=== PATIENT | male | born 1940 | race Caucasian/White ===

== ENCOUNTER 2017-12-27 19:40 | Observation (INO) | payer MEDICARE ==
[2017-12-27] MEDS ORDERED: Nitroglycerin TAB 0.4 MG* 0.4 MG TAB SL ONE (20:28)
[2017-12-27] MEDS ORDERED: Aspirin TAB* 325 MG PO ONE (20:28)
--- NOTE | 2017-12-27 20:32 | RAD ---
INDICATION: Chest pain COMPARISON: December 16, 2015 TECHNIQUE: An AP portable view obtained at 2021 hours is submitted. FINDINGS: Bones/Soft Tissues: There are no acute bony findings. Cardiomediastinal: The cardiomediastinal silhouette is normal. Lungs: There are no infiltrates. There is mild hyperinflation. Pleura: There are no pleural effusions. Other: None IMPRESSION: HYPERINFLATION. NO ACTIVE DISEASE.
[2017-12-27 21:24] LABS: ABS Basophils 0.1 10^3/ul (0-0.2); ABS Eosinophils 0.1 10^3/ul (0-0.6); ABS Lymphocytes 1.4 10^3/ul (1.0-4.8); ABS Monocytes 0.6 10^3/ul (0-0.8); ABS Neutrophils 3.3 10^3/ul (1.5-7.7); ABS Nucleated RBC 0 10^3/ul; Eosinophil % 2.4 % (0-6); Hematocrit 40 % (42-52); Lymphocyte % 25.5 % (25-47); Mean Corpuscular HGB Conc 35 g/dl (31-36); Mean Corpuscular Hemoglobin 31 pg (27-31); Mean Corpuscular Volume 87 fL (80-94); Mean Platelet Volume 8 um3 (7.4-10.4); Nucleated Red Blood Cells % 0; Platelet Count 155 10^3/ul (150-450); Red Blood Count 4.59 10^6/ul (4.0-5.4); Red Cell Distribution Width 13 % (10.5-15); White Blood Count 5.4 10^3/ul (3.5-10.8)
[2017-12-27 21:36] LABS: EGFR Non-African American 77.6 (>60)
--- NOTE | 2017-12-28 00:23 | HP ---
CC: Dr. Wallis * HISTORY AND PHYSICAL: DATE OF ADMISSION: 12/27/17 PRIMARY CARE PROVIDER: Dr. Wallis. ROOF TILER: Dr. Gaspar. CHIEF COMPLAINT: Chest pain. HISTORY OF PRESENT ILLNESS: Mr. Ceballos is a 77-year-old male, who was driving back from [employer] today when he developed the onset of chest discomfort across his chest. He states that it was at approximately noon. The patient describes the discomfort as being a pressure feeling. He states the more he thought about the discomfort, the worse it got. He had no associated nausea or diaphoresis, but he did think he may have been slightly short of breath. The patient states that the discomfort lasted for several hours. It resolved when he got to the emergency room. The patient does state that he rides a stationary bike for 30 minutes per day except for Sundays. He rode his bike this morning. He does state that he gets his heart rate going pretty quick with riding his bike. He had no associated chest pain this morning with riding his stationary bike. PAST MEDICAL HISTORY: 1. Coronary artery disease. 2. Hyperlipidemia. 3. BPH. 4. Questionable lung nodule. PAST SURGICAL HISTORY: 1. Appendectomy. 2. Tonsillectomy. MEDICATIONS: 1. Aspirin 81 mg p.o. daily. 2. Crestor 10 mg p.o. daily. 3. AREDS 1 tab p.o. daily. 4. Lisinopril 10 mg p.o. daily. 5. Atenolol 25 mg p.o. daily. ALLERGIES: No known drug allergies. FAMILY HISTORY: Mother of breast cancer. Father of an [place]. SOCIAL HISTORY: The patient is a former smoker. He quit in the . He drinks alcohol on occasion. 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 He is x2. He has 2 children. He indicates that his son, Nikos, would be his surrogate decision maker. REVIEW OF SYSTEMS: Complete 11-system of review of systems was obtained. Pertinent positives and negatives are as per HPI, and otherwise negative. PHYSICAL EXAMINATION GENERAL: The patient is a well-developed, elderly male, sitting up in the stretcher in no acute distress. VITAL SIGNS: Blood pressure 129/63, pulse 59, respirations 17, temp 98.3, O2 sat 97% on room air. HEENT: Pupils are equal and round. Extraocular muscles are intact. Oropharynx is clear. Oral mucosa is moist. The patient wears upper and lower dentures. There is no submandibular, cervical, or supraclavicular adenopathy. Thyroid is not enlarged. No thyroid nodules are noted. PULMONARY: Lungs are clear to auscultation bilaterally. CARDIAC: Normal S1, S2. Regular rate and rhythm. I do not appreciate any murmurs. There is no lower extremity edema. ABDOMEN: Bowel sounds are present. Abdomen is soft, nontender, nondistended. MUSCULOSKELETAL: There is no cyanosis or clubbing of the digits. There is full active range of motion of all 4 extremities. NEURO: Cranial nerves II through XII are grossly intact. Sensation is intact to light touch throughout. Strength is 5/5 and symmetric in both upper and lower extremities bilaterally. PSYCH: The patient is alert, he is oriented x3. Affect appears appropriate. SKIN: Warm and dry. There are no rashes. DIAGNOSTIC STUDIES/LAB DATA: WBC 5.4, hemoglobin 14.0, hematocrit 40, platelets 155. D-dimer 217. Sodium 139, potassium 3.6, chloride 108, CO2 26, BUN 23, creatinine 0.94, glucose 111, lactic acid 1.1, calcium 9.5. Bilirubin 0.9, AST 27, ALT 20, alk phos 47. Troponin 0.01. Albumin 4.0. EKG reveals normal sinus rhythm without any acute ST-T wave abnormalities. Chest x-ray revealed hyperinflation with no active disease. ASSESSMENT AND PLAN: Mr. Ceballos is a 77-year-old male with a known history of coronary artery disease, status post stenting in the past, who presents to the emergency room with complaints of chest pressure that lasted for several hours on the day of admission. 1. Chest pain. The patient will be admitted and ruled out for an acute myocardial infarction with serial troponins. Followup EKG will be obtained tomorrow morning. The patient will be ordered an exercise nuclear stress test. If the stress test is negative, he will be discharged home as positive Cardiology consultation should be obtained. 2. Hyperlipidemia. The patient will continue on Lipitor while in the hospital ; however, I will transition back to Crestor at home. He has had issues with elevated CPKs in the past. I will add a CPK to the labs drawn in the emergency room. 3. Coronary artery disease. The patient will be maintained on his usual dose of aspirin, atenolol, and lisinopril. 4. DVT prophylaxis. According to the Adult Thrombosis Prophylaxis Risk Factor Assessment Guide, the patient has a total risk factor score of 3, making him high risk. He will be placed on heparin 5000 units subcutaneous q.8 hours. 5. Code status is full. TIME SPENT: Fifty-five minutes was spent admitting this patient. [id number]/[facility] #: [id number] LAK[place]INDER
[2017-12-28] MEDS: Heparin VIAL(*) 5000 UNITS/ML VIAL (FIVE THOUSAND) SUBCUT SCH ×2 (05:57→14:30)
[2017-12-28] MEDS ORDERED: Lisinopril TAB* 10 MG PO SCH (09:00)
[2017-12-28] MEDS ORDERED: Atorvastatin* 20 MG TAB PO SCH (09:00)
[2017-12-28] MEDS ORDERED: Atenolol TAB* 25 MG PO SCH (09:00)
[2017-12-28] MEDS ORDERED: Multivitamins/Minerals TAB PO SCH (09:00)
[2017-12-28] MEDS ORDERED: Aspirin Low Dose CHEW TAB* 81 MG PO SCH (09:00)
--- NOTE | 2017-12-28 12:12 | RAD ---
Edited for charges. Indication: Evaluate for ischemia. Chest pain. Myocardial perfusion scan was performed utilizing 1 day protocol. 10.9 mCi of technetium 99 and tetrofosmin was injected for the rest portion of the study. Treadmill stress study was performed and 25.2 mCi of technetium 99 and tetrofosmin was injected for the stress portion of the study. Maximum heart rate achieved was 113% of the maximum predicted value. There is photopenia in the inferior wall which is slightly worse on the stress and the rest images however this is felt to represent diaphragmatic attenuation. The ejection fraction at stress is 57%. Evaluation of wall motion demonstrates no focal wall motion abnormality. IMPRESSION: Inferior wall photopenia slightly worse on the stress than on the rest of this is felt to represent diaphragmatic attenuation as attenuation correction could not be performed due to body habitus. Ejection fraction of 57%. ASSESSMENT: Low risk Based on imaging criteria from ACC/AHA 2002 Guideline Update for the Management of Patients With Chronic Stable Angina Table 23. Noninvasive Risk Stratification. MTDD
[2017-12-28 13:11] VITALS: BP 127/66
--- NOTE | 2017-12-28 14:43 | PN ---
Subjective Date of Service: 12/28/17 Interval History: Patient seen and examined at bedside. Denies fever, chills, shortness of breath , chest discomfort, N/V/D. Pt reported slight chest discomfort at the end of his stress test. Tele: Sinus rhythm, rate 60's. Family History: Unchanged from Admission Social History: Unchanged from Admission Past Medical History: Unchanged from Admission Objective Active Medications: Aspirin (Aspirin Low Dose Tab*) 81 mg PO DAILY [facility] Atenolol (Tenormin Tab*) 25 mg PO DAILY [facility] Atorvastatin Calcium (Lipitor*) 20 mg PO DAILY [facility] Heparin Sodium (Porcine) (Heparin Vial(*)) 5,000 units SUBCUT Q8HR [facility] Lisinopril (Prinivil Tab*) 10 mg PO DAILY [facility] Multivitamins/Minerals (Theragran/Minerals Tab*) 1 tab PO DAILY [facility] Vital Signs - 8 hr 12/28/17 12/28/17 08:06 12:06 Temperature 97.6 F 97.6 F Pulse Rate 64 66 Respiratory 16 16 Rate Blood Pressure 122/69 127/66 (mmHg) O2 Sat by Pulse 97 93 Oximetry Oxygen Devices in Use Now: None Appearance: NAD, laying in bed Ears/Nose/Mouth/Throat: Mucous Membranes Moist Respiratory: Symmetrical Chest Expansion and Respiratory Effort, Clear to Auscultation Cardiovascular: NL Sounds; No Murmurs; No JVD, RRR Abdominal: NL Sounds; No Tenderness; No Distention Extremities: No Edema Skin: No Rash or Ulcers Neurological: Alert and Oriented x 3, NL Muscle Strength and Tone Lines/Tubes/Other Access: Clean, Dry and Intact Peripheral IV - site benign Nutrition: Taking PO's Result Diagrams: 12/27/17 21:03 12/27/17 21:03 Assess/Plan/Problems-Billing Assessment: Mr. Ceballos is a 77 yo female with PMH significant for CAD, HLD, BPH, and a ? lung nodule who presented to the emergency room with complaints of chest discomfort. - Patient Problems (1) Chest pain Code(s): R07.9 - CHEST PAIN, UNSPECIFIED SNOMED Code(s): 11553181 Comment: - Troponin 0.01 x3 - Stress test - low risk (2) CAD (coronary artery disease) Code(s): I25.10 - ATHSCL HEART DISEASE OF [place] CORONARY ARTERY W/O ANG PCTRS SNOMED Code(s): 18024289 Comment: - Continue ASA, atenolol and statin (3) Dyslipidemia Code(s): E78.5 - HYPERLIPIDEMIA, UNSPECIFIED SNOMED Code(s): 161327014 Comment: - Continue statin (4) Hypertension Code(s): I10 - ESSENTIAL (PRIMARY) HYPERTENSION SNOMED Code(s): 33086254 Comment: - SBP 120-130's - Continue atenolol and lisinopril (5) DVT prophylaxis Code(s): UPA3718 - SNOMED Code(s): 649884074 (6) Full code status Code(s): Z78.9 - OTHER SPECIFIED HEALTH STATUS SNOMED Code(s): 073908860 Status and Disposition: OBV. Stable for discharge to home.
--- NOTE | 2017-12-29 17:50 | DS ---
CC: Dr. Gaspar; Dr. Zackary Wallis DISCHARGE SUMMARY: DATE OF ADMISSION: 12/27/17 DATE OF DISCHARGE: 12/28/17 ATTENDING PHYSICIAN: Dr. Oleg Phillip (dictated by Tino Hall NP). PRIMARY CARE PROVIDER: Dr. Zackary Wallis. PRIMARY DIAGNOSIS: Chest pain, suspect noncardiac in nature. SECONDARY DIAGNOSES: Coronary artery disease, hyperlipidemia, hypertension, benign prostatic hypertr ophy, possible lung nodule. STUDIES WHILE IN THE HOSPITAL: 1. Chest x-ray on 12/27/17. Radiologist's impression: Hyperinflation. No active disease. 2. Cardiac nuclear stress stress test on 12/28/17. Licensed Direct Entry Midwife's observation: Good exercise capaci ty. Gait issue limits ambulation. Chest discomfort reproduced at peak exercise and into recovery. Off a.m. medications, elevated blood pressure and appropriate response to exercise. Resting ECG show s normal sinus rhythm, normal ST segments and significant ST changes with testing. Licensed Direct Entry Midwife's co nclusion: Hypertensive throughout off medications and chest discomfort. No evidence of inducible is chemia by ECG criteria, await nuclear data for final ischemic interpretation. Radiologist's impressi on: Inferior wall photopenia, slightly worse on the stress and on the rest of this is felt to repres ent diaphragmatic attenuation as attenuation correction could not be performed due to body habitus. EF 57%. Assessment: Low risk. MEDICATIONS: Continued home medications: 1. Aspirin 81 mg oral daily. 2. Lisinopril 10 mg oral daily. 3. Atenolol 25 mg oral daily. 4. Rosuvastatin 10 mg oral daily. 5. Multivitamin 1 tablet oral daily. HISTORY OF PRESENT ILLNESS/HOSPITAL COURSE: Mr. Ceballos is a 77-year-old male with past medical histo ry significant for coronary artery disease, hyperlipidemia, hypertension, BPH, possible lung nodule, who was driving when he developed sudden onset of chest discomfort across his chest. The patient holly cribed the discomfort as a pressure feeling. He reported the one that he thought about the discomfor t that worse and got. He had no associated diaphoresis, nausea, or radiation of his pain. He felt a s though he may have been slightly short of breath. The discomfort continued for several hours and h e decided to present to the emergency room. The patient's chest pain resolved when he got to the [facility] room. On the emergency room, the patient had labs that were unremarkable. Initial troponin 0 .01 and an EKG without any acute ST-T wave changes. He had a chest x-ray without significant finding s. Due to his cardiac history, the hospitalists were asked to evaluate the patient for admission. While in the hospital, the patient was monitored on telemetry with no significant findings. He had a repeat EKG this morning showing a sinus rhythm. No acute ST-T wave changes or some early repolariza tion seen. He underwent an exercise nuclear stress test showing a low risk. He remained chest pain free with the exception of some chest discomfort with maximum exertion with exercise stress test. He was also noted to be hypertensive during his stress test, though had been off of his blood pressure medications this morning. Mr. Ceballos is stable for discharge to home today. Vital signs are as follows: Temperature 97.6, hear t rate 66, respiratory rate 16, O2 sat 93% on room air, blood pressure 127/66. DISCHARGE PLAN: Mr. Ceballos will be discharged to home. Activity as tolerated. He will be on a hear t healthy diet. As far as his chest discomfort, this represents atypical chest pain, I suspect it is noncardiac in nature. He has been asked to continue his home medications and that if he continues t o feel chest discomfort, he should follow up with his primary lens blocker, Dr. Gaspar. He has been set up with a followup appointment with his primary care provider, Dr. Zackary Wallis on 01/10/18 at 9:4 0 a.m. The patient has been asked to return to the emergency room for any chest pain, shortness of b reath. This is a summarized report of a complex medical history and hospital stay. For further details, ple ase see the entire medical record. TIME SPENT: Time for this discharge was approximately 50 minutes, greater than half of that was spent with the patient and his discussing discharge plans and ins tructions. CONDITION ON DISCHARGE: Stable. TINO HALL, DARLINE [id number]/[facility] #: [id number]
== END 2017-12-28 16:25 | disposition home or self-care (01) ==
LOC: ED 19:40 → MEDTELE 22:12
PROVIDERS: ADMIT Hospitalist; ATTEND Hospitalist
DX: R07.9 Chest pain, unspecified (principal); I25.10 Atherosclerotic heart disease of native coronary artery without angina pectoris; N40.0 Benign prostatic hyperplasia without lower urinary tract symptoms; E78.5 Hyperlipidemia, unspecified; I10 Essential (primary) hypertension; Z79.82 Long term (current) use of aspirin; Z90.89 Acquired absence of other organs
CPT/HCPCS: 36415; 71045; 78452; 80053; 83605; 84484; 85025; 85379; 93005; 93017; 99285; A9270-GY; A9502; G0378; J1644

== ENCOUNTER 2018-07-31 12:27 | Observation (INO) | payer MEDICARE ==
[2018-07-31] MEDS ORDERED: Nitroglycerin TAB 0.4 MG* 0.4 MG TAB SL ONE (12:53)
[2018-07-31] MEDS ORDERED: Aspirin 81 mg CHEW TAB* 81 MG TAB.CHEW PO ONE (12:53)
[2018-07-31] MEDS ORDERED: Nitroglycerin 2% OINT* 1 GM PAK TOPICAL ONE (12:53)
[2018-07-31 13:14] LABS: ABS Basophils 0 10^3/ul (0-0.2); ABS Eosinophils 0 10^3/ul (0-0.6); ABS Lymphocytes 1.5 10^3/ul (1.0-4.8); ABS Monocytes 0.7 10^3/ul (0-0.8); ABS Nucleated RBC 0 10^3/ul; Eosinophil % 0.7 % (0-6); Hematocrit 42 % (42-52); Hemoglobin 14.3 g/dl (14.0-18.0); Lymphocyte % 23.9 % (25-47); Mean Corpuscular HGB Conc 34 g/dl (31-36); Mean Corpuscular Hemoglobin 29 pg (27-31); Mean Corpuscular Volume 86 fL (80-94); Mean Platelet Volume 8.2 um3 (7.4-10.4); Nucleated Red Blood Cells % 0.1; Platelet Count 158 10^3/ul (150-450); Red Blood Count 4.88 10^6/ul (4.00-5.40); Red Cell Distribution Width 13 % (10.5-15); White Blood Count 6.2 10^3/ul (3.5-10.8)
--- NOTE | 2018-07-31 13:22 | RAD ---
Indication: Chest pain and pressure for a couple of days. Coronary artery disease with prior stents. Comparison: December 27, 2017 Technique: Upright AP 1300 hours Report: Elevated lung volumes and both diffuse mild prominence of the interstitial markings and patchy rarefaction of the mid to upper lung zone interstitial markings. Mild bilateral apical pleural-parenchymal scarring. No suspicious focal pulmonary lesion, compelling alveolar consolidation, pleural effusion, pneumothorax. The heart, pulmonary vasculature, and mediastinal contours are unremarkable. Unremarkable soft tissue contours and osseous structures for age. IMPRESSION: #. Stigmata of obstructive lung disease. No acute pulmonary or cardiac process evident.
[2018-07-31 13:24] LABS: INR 0.97 (0.77-1.02)
[2018-07-31 13:32] LABS: EGFR Non-African American 72.3 (>60)
--- NOTE | 2018-07-31 14:30 | ED ---
HPI Chest Pain - HPI Summary HPI Summary: Patient is a 77 y/o M w/ c/o chest pain and feeling "lousy" the past couple of days. He notes that chest pain lessens at night, worsens with exertion. Patient denies any recent injuries/trauma. Chest pain is noted to be located "across the chest". Chest pain is described as a pressure. In room, pain is rated 4/10 and he denies radiation of pain. He denies SOB, cold sweats as well. PSHx of cardiac stents, PMHx of HTN, denies PMHx of ME. He reports taking one baby aspirin this morning. Patient reports Hx of chest pain, but notes it has been one-sided in the past. System Safety Manager is Dr. Gaspar. He reports taking ASA 81 mg daily, crestor, atenolol 25 mg. Home medications and allergies reviewed. FMHx of father w/ ME in his 60s. - History of Current Complaint Chief Complaint: EDChestPainROMI Time Seen by Provider: 07/31/18 12:41 Hx Obtained From: Patient Onset/Duration: Started Days Ago - a couple of days ago, Still Present Timing: Lasting Days - a couple of days ago Current Severity: Moderate - 4/10 Pain Intensity: 4 Pain Scale Used: 0-10 Numeric - 4/10 Chest Pain Location: Diffuse - "across the chest" Chest Pain Radiates: No Character: Pressure/Squeezing Aggravating Factor(s): Exertion Alleviating Factor(s): Other: - chest pain is noted to lessen at night Associated Signs and Symptoms: Positive: Chest Pain. Negative: Shortness of Breath, Diaphoresis - NEGATIVE: cold sweats - Additional Pertinent History Primary Care Physician: [id number] - Allergy/Home Medications Allergies/Adverse Reactions: Allergies Allergy/AdvReac Type Severity Reaction Status Date / Time No Known Allergies Allergy Verified 07/31/18 12:38 Home Medications: Home Medications Lisinopril TAB* [Prinivil TAB*] 20 mg PO DAILY 07/31/18 [History Confirmed 07/31] Vit C/E/Zn/Coppr/Lutein/Zeaxan [Preservision Areds 2 Softgel] 1 cap PO BID 07/31 [History Confirmed 07/31/18] PMH/Surg Hx/FS Hx/Imm Hx Endocrine/Hematology History: Denies: Hx Diabetes Cardiovascular History: Reports: Hx Angina, Hx Coronary Artery Disease, Hx Hypercholesterolemia, Hx Hypertension, Other Cardiovascular Problems/Disorders - Stents placed 2006 and 2007 Denies: Hx Myocardial Infarction, Hx Pacemaker/ICD Respiratory History: Reports: Other Respiratory Problems/Disorders - PNA ONE YR AGO Denies: Hx Asthma History: Denies: Hx Dialysis, Hx Renal Disease Sensory History: Reports: Hx Contacts or Glasses Denies: Hx Hearing Aid Opthamlomology History: Reports: Hx Contacts or Glasses Psychiatric History: Denies: Hx Panic Disorder - Cancer History Cancer Type, Location and Year: "spot on my lungs" may 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 - Surgical History Surgery Procedure, Year, and Place: appendectomy, tonsilectomy, cardiac stents placed 2006 and 2007. 2-XIENCE V STENT SAFE TO 3T. 1-CORDIS CYPHER STENT SAFE TO 3T. STENT CARDS SCANNED INTO [employer] Hx Anesthesia Reactions: No - Immunization History Date of Tetanus Vaccine: unsure Date of Influenza Vaccine: 2012 Infectious Disease History: No Infectious Disease History: Reports: Hx Shingles Denies: History Other Infectious Disease, Traveled Outside the [place] in Last 30 Days - Family History Known Family History: Positive: Cardiac Disease - Father of heart attack Negative: Hypertension - Social History Alcohol Use: Rare Alcohol Amount: a glass a wine or beer every now and then Substance Use Type: Reports: None Smoking Status (MU): Former Smoker Have You Smoked in the Last Year: No Review of Systems Positive: Other - feeling "lousy" . Negative: Skin Diaphoresis - NEGATIVE: cold sweats Positive: Chest Pain Negative: Shortness Of Breath All Other Systems Reviewed And Are Negative: Yes Physical Exam - Summary Physical Exam Summary: Appearance: Well appearing, no pain distress Skin: warm, dry, reflects adequate perfusion Head/face: normal Eyes: EOMI, ANNALISA ENT: mucous membranes moist; hearing aids are present in both ears Neck: supple, non-tender Respiratory: CTA, breath sounds present Cardiovascular: RRR, pulses symmetrical Abdomen: non-tender, soft Bowel Sounds: present Musculoskeletal: normal, strength/ROM intact Neuro: normal, sensory motor intact, A&Ox3 CCT is EXCLUSIVE of separately billable procedures. Triage Information Reviewed: Yes Vital Signs On Initial Exam: Initial Vitals Temp Pulse Resp BP Pulse Ox 99 F 66 16 152/85 98 07/31/18 12:35 07/31/18 12:35 07/31/18 12:35 07/31/18 12:35 07/31/18 12:35 Vital Signs Reviewed: Yes Diagnostics - Vital Signs Vital Signs Temp Pulse Resp BP Pulse Ox 07/31/18 12:35 99 F 66 16 152/85 98 - Laboratory Lab Results: Lab Results 07/31/18 07/31/18 07/31/18 Range/Units 13:02 13:02 13:02 WBC 6.2 (3.5-10.8) 10^3/ul RBC 4.88 (4.00-5.40) 10^6/ul Hgb 14.3 (14.0-18.0) g/dl Hct 42 (42-52) % MCV 86 (80-94) fL MCH 29 (27-31) pg MCHC 34 (31-36) g/dl RDW 13 (10.5-15) % Plt Count 158 (150-450) 10^3/ul MPV 8.2 (7.4-10.4) um3 Neut % (Auto) 64.1 (38-83) % Lymph % (Auto) 23.9 L (25-47) % [place] % (Auto) 10.8 H (0-7) % Eos % (Auto) 0.7 (0-6) % Baso % (Auto) 0.5 (0-2) % Absolute Neuts (auto) 4.0 (1.5-7.7) 10^3/ul Absolute Lymphs (auto) 1.5 (1.0-4.8) 10^3/ul Absolute Monos (auto) 0.7 (0-0.8) 10^3/ul Absolute Eos (auto) 0 (0-0.6) 10^3/ul Absolute Basos (auto) 0 (0-0.2) 10^3/ul Absolute Nucleated RBC 0 10^3/ul Nucleated RBC % 0.1 INR (Anticoag Therapy) 0.97 (0.77-1.02) Sodium 138 (135-145) mmol/L Potassium 4.2 (3.5-5.0) mmol/L Chloride 105 (101-111) mmol/L Carbon Dioxide 26 (22-32) mmol/L Anion Gap 7 (2-11) mmol/L BUN 20 (6-24) mg/dL Creatinine 1.00 (0.67-1.17) mg/dL Est GFR ( Amer) 87.4 (>60) Est GFR (Non-Af Amer) 72.3 (>60) BUN/Creatinine Ratio 20.0 (8-20) Glucose 100 (70-100) mg/dL Lactic Acid (0.5-2.0) mmol/L Calcium 9.6 (8.6-10.3) mg/dL Total Bilirubin 1.40 H (0.2-1.0) mg/dL AST 29 (13-39) U/L ALT 25 (7-52) U/L Alkaline Phosphatase 44 (34-104) U/L Troponin I 0.01 (<0.04) ng/mL B-Natriuretic Peptide ( - 100) pg/mL Total Protein 7.0 (6.4-8.9) g/dL Albumin 4.4 (3.2-5.2) g/dL Globulin 2.6 (2-4) g/dL Albumin/Globulin Ratio 1.7 (1-3) 07/31/18 07/31/18 Range/Units 13:02 13:02 WBC (3.5-10.8) 10^3/ul RBC (4.00-5.40) 10^6/ul Hgb (14.0-18.0) g/dl Hct (42-52) % MCV (80-94) fL MCH (27-31) pg MCHC (31-36) g/dl RDW (10.5-15) % Plt Count (150-450) 10^3/ul MPV (7.4-10.4) um3 Neut % (Auto) (38-83) % Lymph % (Auto) (25-47) % [place] % (Auto) (0-7) % Eos % (Auto) (0-6) % Baso % (Auto) (0-2) % Absolute Neuts (auto) (1.5-7.7) 10^3/ul Absolute Lymphs (auto) (1.0-4.8) 10^3/ul Absolute Monos (auto) (0-0.8) 10^3/ul Absolute Eos (auto) (0-0.6) 10^3/ul Absolute Basos (auto) (0-0.2) 10^3/ul Absolute Nucleated RBC 10^3/ul Nucleated RBC % INR (Anticoag Therapy) (0.77-1.02) Sodium (135-145) mmol/L Potassium (3.5-5.0) mmol/L Chloride (101-111) mmol/L Carbon Dioxide (22-32) mmol/L Anion Gap (2-11) mmol/L BUN (6-24) mg/dL Creatinine (0.67-1.17) mg/dL Est GFR ( Amer) (>60) Est GFR (Non-Af Amer) (>60) BUN/Creatinine Ratio (8-20) Glucose (70-100) mg/dL Lactic Acid 1.0 (0.5-2.0) mmol/L Calcium (8.6-10.3) mg/dL Total Bilirubin (0.2-1.0) mg/dL AST (13-39) U/L ALT (7-52) U/L Alkaline Phosphatase (34-104) U/L Troponin I (<0.04) ng/mL B-Natriuretic Peptide 12 ( - 100) pg/mL Total Protein (6.4-8.9) g/dL Albumin (3.2-5.2) g/dL Globulin (2-4) g/dL Albumin/Globulin Ratio (1-3) Result Diagrams: 07/31/18 13:02 07/31/18 13:02 Lab Statement: Any lab studies that have been ordered have been reviewed, and results considered in the medical decision making process. - Radiology CXR Xray Interpretation: No Acute Changes Radiology Interpretation Completed By: Radiologist - stigmata of obstructive lung disease, no acute pulmonary or cardiac process evident; this report was reviewed by ed physician - EKG 1246 Cardiac Rate: NL - rate of 62 BPM EKG Rhythm: Sinus Rhythm ST Segment: Normal EKG Interpretation: normal axis, normal interval Re-Evaluation - Re-Evaluation First Eval Re-Evaluation Time: 14:09 Comment: Results of labs and tests discussed. Patient informed of decision to admit for further workup. Patient understands and is agreeable with plan. Chest Pain Course/Dx - Course Course Of Treatment: Patient with exertional angina over the last several days. Troponin 1 and EKG have been negative so far. Heart score of 45. Pain improved with nitroglycerin. Discussed case with the hospitalist who will admit for further. Aspirin, nitroglycerin given here. Beta torrie was not given as his heart rate is 60. - Chest Pain Differential Diagnosis/HQI/PQRI: Acute ME, ACS, Angina, CHF, Chest Wall, GI Disease, Lower Respiratory Infection - Diagnoses Provider Diagnoses: Chest pain, Angina effort - Provider Notifications Discussed Care Of Patient With: Nikos Cutler Time Discussed With Above Provider: 14:03 Instructed by Provider To: Other - Patient's case was discussed with Dr. Cutler at 1403. Dr. Cutler accepts patient for admission to [facility]. Discharge - Sign-Out/Discharge Documenting (check all that apply): Patient Departure - admit - Discharge Plan Condition: Stable Disposition: ADMITTED TO [facility] - Billing Disposition and Condition Condition: STABLE Disposition: Admitted to [facility] - Attestation Statements Document Initiated by Scribe: Yes Documenting Scribe: Choco Dominguez Provider For Whom Scribe is Documenting (Include Credential): Ryder Garcia MD Scribe Attestation: Choco Weiner, scribed for Ryder Garcia MD on 07/31/18 at 1558. Scribe Documentation Reviewed: Yes Provider Attestation: The documentation as recorded by the Choco stone accurately reflects the service I personally performed and the decisions made by me, Ryder Garcia MD
--- NOTE | 2018-07-31 20:22 | HP ---
CC: Dr. Zackary Wallis; Dr. Kristopher Gaspar * HISTORY AND PHYSICAL: DATE OF ADMISSION: 07/31/18 PRIMARY CARE PROVIDER: Dr. Zackary Wallis. PRIMARY HEALTHCARE CORPORATE ACCOUNT DIRECTOR: Dr. Kristopher Gaspar. ATTENDING PHYSICIAN: Dr. Nikos Cutler * (dictated by Tino Durant NP). CHIEF COMPLAINT: Exertional chest pain. HISTORY OF PRESENT ILLNESS: Mr. Ceballos is a 77-year-old male with past medical history significant for coronary artery disease, hyperlipidemia, hypertension, BPH, lung nodule, chronically elevated CK, who presented to the emergency room with complaints of sternal chest discomfort for 3 days. The patient states that he recently went camping and noted that while he was trying to hike, he was developing sternal chest pain that was radiating across his chest. He described it as a pressure 4/10. He also noted while walking tingling in his legs, he states that he has had this in the past. His chest pain would resolve at night and when he would get up and move, he would have it in the day. He also noted feeling more fatigued than normal. He denied any fever, chills, shortness of breath, nausea, vomiting, diaphoresis during these episodes. He had a stress test in December of 2017, showing a low risk when he was hospitalized and was on observation for chest pain at that time. 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 The patient is also known to have a chronic CK elevation without symptoms, on a stable dose of Crestor. According to the Cardiology notes, his last LDL was higher than goal, but due to his elevated CK, he was continued on the same dose of Crestor. He was denying any leg fatigue with exercise. Due to his symptoms, he presented to the emergency room for further evaluation. While in the emergency room, he had an EKG showing a sinus rhythm, no acute signs of ischemia. He received aspirin, nitro paste, and sublingual nitro and his chest discomfort resolved. He had a chest x-ray showing no acute findings. He had lab works that was unremarkable. Troponin of 0.04. He does have an elevated bilirubin, but this appears to be near his baseline. PAST MEDICAL HISTORY: 1. Coronary artery disease. 2. Hyperlipidemia. 3. BPH. 4. Lung nodule. 5. Hypertension. 6. Chronically elevated CK. PAST SURGICAL HISTORY: 1. Status post appendectomy. 2. Status post tonsillectomy. 3. Status post cardiac stent to the circumflex in 2006. MEDICATIONS: Home medications include: 1. PreserVision 1 capsule oral twice daily. 2. Crestor 10 mg oral daily. 3. Lisinopril 20 mg oral daily. 4. Atenolol 25 mg oral daily. 5. Aspirin 81 mg oral daily. ALLERGIES: No known drug allergies. FAMILY HISTORY: The patient's father at age 60 from myocardial infarction. He denies family history of diabetes. His mother had a history of breast cancer. SOCIAL HISTORY: He is a former smoker. He quit smoking in 1979. He occasionally drinks alcohol. Denies recreational drug use. His son, Nikos, will be his surrogate decision maker in the event he is unable to make decisions for himself. REVIEW OF SYSTEMS: I performed an 11-point review of systems. All the pertinent positives and negatives are mentioned in the history of present illness, remaining review of systems are negative. PHYSICAL EXAMINATION GENERAL APPEARANCE: The patient is alert, pleasant, and appears to be in no acute distress. VITAL SIGNS: Temperature 99, heart rate 66, respiratory rate 16, O2 sat 98% on room air, and blood pressure 152/85. HEENT: Normocephalic and atraumatic. Pupils are equal and reactive to light. Extraocular movements are intact. RESPIRATORY: There is no accessory muscles use. The lungs are clear to auscultation bilateral. CARDIOVASCULAR: Regular rate and rhythm. S1 and S2 present. There are no murmurs, rubs, or gallops heard. ABDOMEN: Soft, nontender, and nondistended. There are bowel sounds present x4. EXTREMITIES: There is no lower extremity edema. DP and PT pulses are 2+ and symmetric. MUSCULOSKELETAL: There is no clubbing or cyanosis noted. The patient exhibits good strength in all extremities. The chest pain is unable to be reproduced with palpation. NEUROLOGIC: The patient is alert and oriented x4. Cranial nerves II through XII are grossly intact. PSYCHOLOGICAL: The patient is calm and cooperative. SKIN: There are no rashes or abnormalities seen. DIAGNOSTIC STUDIES/LAB DATA: Sodium 138, potassium 4.2, chloride 105, CO2 of 26, BUN is 20, creatinine 1.0, glucose 100. White blood cell count 6.2, hemoglobin 14.3, hematocrit 42, platelet count 158. Total bilirubin 1.40. Troponin 0.01. EKG shows a sinus rhythm with rate of 62. There are no acute signs of ischemia. This is similar to previous from 12/30/17. Chest x-ray from today. Radiologist's impression: Stigmata of obstructive lung disease. No acute pulmonary or cardiac process evident. IMPRESSION: Mr. Ceballos is a 77-year-old male with past medical history significant for coronary artery disease, hyperlipidemia, benign prostatic hypertrophy, lung nodule, hypertension, chronic elevated CK, who presents to the emergency room with complaints of 3 days of exertional chest pain and fatigue. He will be admitted under observation for a chest pain, rule out acute coronary syndrome. ASSESSMENT/PLAN: 1. Chest pain. The patient will be admitted to rule out acute coronary syndrome. At this time, the patient's chest pain has resolved with nitro paste. He last had a stress test in December of 2017, showing a low risk. I am going to trend his troponins, monitor him on telemetry. I am going to touch base with Cardiology to see if the patient would benefit from a cardiac cath versus another stress test at this time. We will further determine our plan based on cardiology's recommendations. He has a MARYANN score of 4. 2. Coronary artery disease. The patient is going to be continued on his home atenolol, aspirin, and Crestor. 3. Hyperlipidemia. He will be on his home Crestor. We will check fasting lipids in the morning. I am going to add a CK on to the ED labs, with the patient's leg complaints to see if this is elevated. 4. Elevated total bilirubin. The patient's bilirubin appears to be at its baseline, chronically elevated level. 5. Lung nodule. The patient should continue previously planned followup. 6. Fluids, electrolytes, and nutrition. Heart-healthy diet. 7. Code status. Full code. 8. DVT prophylaxis. He is at highest risk. He will have TEDs and subcu heparin. 9. Disposition. Observation. TIME SPENT: Time for this admission was approximately 60 minutes, greater than half of that was spent [id number] with the patient and his significant other discussing medications, past medical history, and the events leading up to his arrival today, performing a physical examination. The case has been reviewed with the attending, Dr. Cutler, who agrees with the plan of care. Reviewed by TINO DURANT, FREDRICK-Rachel 08/02/18 1636 [id number]/[facility] #: [id number] LAK[place]INDER
--- NOTE | 2018-07-31 21:28 | CONS ---
CC: Dr. Kristopher Gaspar; Dr. Zackary Wallis * CARDIOLOGY CONSULTATION: DATE OF CONSULT: 07/31/18 INDICATION FOR CONSULTATION: Chest pain, coronary artery disease. HISTORY OF PRESENT ILLNESS: The patient is a 77-year-old gentleman with a history of coronary artery disease, history of stenting to his left circumflex artery and D1 vessel off of his LAD. He had a couple of episodes of atypical chest pain this weekend. The patient states that he was doing his usual activities around the house and then every once in a while, he would have this chest pain that would start first thing in the morning and last most of the day that would not be exacerbated by activity. It would not disappear throughout the day, it was almost constant throughout the day. He was able to fall sleep easily at night, when he woke up in the morning, the discomfort was gone. However, when he started his day, this chest pain came back and at that point, he decided to come to the emergency room. The patient denied any diaphoresis, he denied any nausea associated with these symptoms. Again, they were not exacerbated by his activity. The chest pain was just constant throughout the day. On arrival to the emergency room, he was in normal sinus rhythm. His EKG was unremarkable and troponins were negative. PAST MEDICAL HISTORY: Significant for coronary artery disease. He had a cardiac catheterization in 2006, at which time he received a stent to his left circumflex artery, a cath in 2007 demonstrated a 95% stenosis to the diagonal vessel which received a stent and a second stent in his left circumflex artery. So, a total of 3 stents: 1 in the diagonal, 2 in the left circumflex and OM vessels. The patient had a cardiac catheterization in February 2009, which showed no significant disease, stents in the left circumflex artery and diagonal were open and patent. The patient had a stress test here at [facility] in December 2017. At that time, the perfusion images revealed no evidence of ischemia. His inferior wall had a fixed defect that was likely due to diaphragmatic attenuation. His LV function was normal, ejection fraction of 57%. Other past medical history is significant for hypertension, hypercholesterolemia , and lung nodules that is being followed. MEDICATIONS: Outpatient medications: 1. Crestor 10 mg a day. 2. Lisinopril 20 mg a day. 3. Aspirin 81 mg a day. 4. Atenolol 25 mg daily. ALLERGIES: ZOCOR. FAMILY HISTORY: Father of a myocardial infarction at 60. Mother of cancer. SOCIAL HISTORY: He is . He is a retired. He is a previous smoker, quit in 1979. Rare alcohol intake. Exercises regularly. REVIEW OF SYSTEMS: Negative for fevers or chills. Negative for changes of bowel or bladder habits. Negative for changes in sleeping habits. Other 12- point reviews unremarkable. PHYSICAL EXAM: Height is 6 feet 2 inches. Weight 230 pounds. Temperature 97.7 , heart rate 58, respiratory rate 16, blood pressure 121/60, oxygen saturation 98% on room air. Sclerae anicteric. Oropharynx is pink without erythema. Carotids are 2+ without bruits. JVD is normal. Thyroid is normal. Cardiac Exam: S1, S2 without any murmurs, rubs, or gallops. Lungs: Clear to auscultation bilaterally with no dullness to percussion. Abdomen is soft, nontender, nondistended with normoactive bowel sounds. Extremities show no edema. He has 2+ pulses throughout. The patient is awake, alert, and oriented. He moves all 4 extremities equally. DIAGNOSTIC STUDIES/LAB DATA: CBC within normal limits. Chemistries within normal limits. Troponins negative x2. EKG demonstrates normal sinus rhythm with normal axis and intervals. IMPRESSION: This is a 77-year-old gentleman with a history of coronary artery disease, admitted to the hospital with atypical chest pain. His EKG is unremarkable. His troponins are negative x2. PLAN/RECOMMENDATIONS: At this point, I am not convinced that the patient's chest pain is cardiac in origin; however, given his history of 3-stent implantation in the past, it is my recommendation the patient undergo an exercise nuclear stress test. It is similar to the stress test he had back in December and if it is unchanged, then he can follow up with Dr. Gaspar. If his stress test is markedly abnormal, I will see the patient for further evaluation. [id number]/[facility] #: [id number] MTDD
[2018-07-31] MEDS: Heparin VIAL(*) 5000 UNITS/ML VIAL (FIVE THOUSAND) SUBCUT SCH (21:40)
[2018-08-01] MEDS: Heparin VIAL(*) 5000 UNITS/ML VIAL (FIVE THOUSAND) SUBCUT SCH ×2 (06:42→14:48)
[2018-08-01] MEDS ORDERED: Atenolol TAB* 25 MG PO SCH (09:00)
[2018-08-01] MEDS ORDERED: Lisinopril TAB* 10 MG PO SCH (09:00)
[2018-08-01] MEDS ORDERED: Aspirin 81 mg CHEW TAB* 81 MG TAB.CHEW PO SCH (09:00)
--- NOTE | 2018-08-01 12:47 | RAD ---
Indication: Chest pain, coronary artery disease. Myocardial perfusion scan was performed utilizing 1 day protocol. Rest myocardial perfusion was performed after intravenous injection of 10.9 mCi of technetium 99 and tetrofosmin. Treadmill stress study was performed and the maximum heart rate achieved was 92% of the maximum predicted value. 26.6 mCi of technetium 99 and tetrofosmin was injected for the stress portion of the study. Comparison is made with previous exam dated December 28, 2017, January 17, 2015. Again noted is a defect in the inferior wall. This is a moderate-sized and has been present as far back as 2014. Attenuation correction could not be performed due to body habitus. The ejection fraction at stress is 63%. Evaluation of wall motion is unremarkable. No focal wall motion abnormality is noted. IMPRESSION: Moderate-sized fixed defect in the inferior wall which has been present since 2014. This may represent diaphragmatic attenuation however a moderate-sized fixed defect in the excluded. There is normal ejection fraction and wall motion noted. The appearance appears to be unchanged from 2015. ASSESSMENT: Intermediate risk Based on imaging criteria from ACC/AHA 2002 Guideline Update for the Management of Patients With Chronic Stable Angina Table 23. Noninvasive Risk Stratification.
[2018-08-01 15:39] VITALS: BP 117/73
--- NOTE | 2018-08-02 08:51 | DS ---
CC: Dr. Nikos Cutler; Dr. Ryder Garcia; Dr. Nba Whitaker; Dr. Zackary Wallis * DISCHARGE SUMMARY: DATE OF ADMISSION: 07/31/18 DATE OF DISCHARGE: 08/01/18 DISCHARGE DIAGNOSES: 1. Atypical chest pain, unlikely cardiac (post evaluation and review of the patient as well as stress test by Dr. Whitaker). 2. History of coronary artery disease, status post 3 stent implantation in the past. 3. History of hyperlipidemia. 4. History of lung nodule. DISCHARGE MEDICATIONS: 1. Aspirin 81 mg p.o. daily. 2. Atenolol 25 mg p.o. daily. 3. Lisinopril 20 mg p.o. daily. 4. Rosuvastatin 10 mg p.o. daily. 5. Multivitamins 1 cap p.o. b.i.d. HISTORY OF PRESENT ILLNESS/HOSPITAL COURSE: The patient is a 77-year-old gentleman with history of CAD, with history of stenting to his left circumflex artery and D1 vessel off of his LAD, hyperlipidemia, hypertension, and history of lung nodule who presented with chest pain that was thought to be atypical. The patient stated that while he was performing his usual activities around the house once in a while he would have some chest pain that would start first thing in the morning and last most of the day that would not be exacerbated by activity. It would not disappear throughout the day and was almost constant throughout the day. Although, he did mention that he has had some easy fatigability, the day of his admission and mentioned that he has had some chest pain while camping recently that he noted when he was trying to hike where he developed some sternal chest pain radiating across his chest. He was admitted for chest pain observation and was ruled out for acute coronary syndrome with troponins being negative x3 with no ST segment changes in his EKG. He also had a nuclear stress test which was read as intermediate probability and I have discussed the above tests with Dr. Whitaker who then personally reviewed the stress test who mentions that his stress test looked the same as before and therefore the patient can be safely discharged from chest pain and hence will defer. The patient has been advised to follow up and recall his PCP within 3 days post discharge to follow up with Dr. Whitaker as well and to call his office to confirm/ make an appoint at [phone]. If his symptoms resume or develop new ones or feel unwell for any reason, he was advised to call his PCP and if his PCP cannot entertain him due to scheduling issues, he will call [facility] if the issue is thought to be nonemergent. He was advised to call my office regarding any questions, concerns, or further clarifications regarding his discharge plans and/or prescriptions and to take his medications as prescribed. PHYSICAL EXAMINATION: Reveals the most recent vital signs of records with blood pressure of 117/73, 98 degrees Fahrenheit, 56 beats per minute heart rate , 16 per minute respiratory rate, saturating at 100% on room air. General appearance: The patient is awake, alert, and oriented x3, not in acute distress. HEENT: Normocephalic, atraumatic. PERRLA. Extraocular muscles intact. Negative for icterus. Moist oral mucosa. Negative throat erythema. Neck: Soft, supple with no cervical lymphadenopathy, no JVD. Heart: S1, S2 within normal limits. Regular rate and rhythm. No murmurs, rubs or gallops. Chest: Clear to auscultation bilaterally. Good air entry. No wheezes, rales or rhonchi. Abdomen: Soft, nondistended, nontender. Normoactive bowel sounds x4q. Extremities: No cyanosis, clubbing or edema. Psychiatric: No active psychosis, depression, suicidal nor homicidal ideation. Skin: Warm to touch. TIME SPENT: The total time spent evaluating the patient, reviewing pertinent data, and appropriate documentation is 40 Minutes. [id number]/[facility] #: [id number] [place]AK[place]ER
== END 2018-08-01 17:09 | disposition home or self-care (01) ==
LOC: ED 12:27 → MEDTELE 15:00
PROVIDERS: ADMIT Internal Medicine; ATTEND Student in an Organized Health Care Education/Training Program
DX: R07.89 Other chest pain (principal); I25.10 Atherosclerotic heart disease of native coronary artery without angina pectoris; Z87.891 Personal history of nicotine dependence; Z95.5 Presence of coronary angioplasty implant and graft; E78.5 Hyperlipidemia, unspecified; Z85.118 Personal history of other malignant neoplasm of bronchus and lung; Z79.82 Long term (current) use of aspirin; I10 Essential (primary) hypertension
CPT/HCPCS: 36415; 71045; 78452; 80053; 80061; 82550; 83605; 83880; 84484; 85025; 85610; 93005; 93017; 99283; A9270-GY; A9502; G0378; J1644

== ENCOUNTER 2018-08-14 09:06 | Emergency (ER) | payer MEDICARE ==
--- NOTE | 2018-08-14 09:33 | ED ---
Psychiatric Complaint - HPI Summary HPI Summary: A 77 y/o male presents to [facility] c/o depression for the past few days. He states that his "head is screwed on backwards". Now that hes retired he feels like he does not have a purpose in life and does not enjoy doing things much more even though he has the resources to do so. He has had trouble in the past with depression when is , but he was able to get through it because he was busy. He has no HI or SI, but states that he has had self-harm ideation without a plan. He states that he has not been able to sleep well lately. He does not have trouble focusing and a friend is moving in with him. He has no FHx of depression. - History Of Current Complaint Time Seen by Provider: 08/14/18 09:17 Hx Obtained From: Patient Onset/Duration: Gradual Onset Timing: Constant Severity Initially: Moderate Severity Currently: Moderate Character: Depressed - Allergies/Home Medications Allergies/Adverse Reactions: Allergies Allergy/AdvReac Type Severity Reaction Status Date / Time No Known Allergies Allergy Verified 07/31/18 12:38 PMH/Surg Hx/FS Hx/Imm Hx Endocrine/Hematology History: Denies: Hx Diabetes Cardiovascular History: Reports: Hx Angina, Hx Coronary Artery Disease, Hx Hypercholesterolemia, Hx Hypertension, Other Cardiovascular Problems/Disorders - Stents placed 2006 and 2007 Denies: Hx Myocardial Infarction, Hx Pacemaker/ICD Respiratory History: Reports: Other Respiratory Problems/Disorders - PNA ONE YR AGO Denies: Hx Asthma History: Denies: Hx Dialysis, Hx Renal Disease Sensory History: Reports: Hx Contacts or Glasses Denies: Hx Hearing Aid Opthamlomology History: Reports: Hx Contacts or Glasses Psychiatric History: Denies: Hx Panic Disorder - Cancer History Cancer Type, Location and Year: "spot on my lungs" may 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 - Surgical History Surgery Procedure, Year, and Place: appendectomy, tonsilectomy, cardiac stents placed 2006 and 2007. 2-XIENCE V STENT SAFE TO 3T. 1-CORDIS CYPHER STENT SAFE TO 3T. STENT CARDS SCANNED INTO [place] Hx Anesthesia Reactions: No - Immunization History Date of Tetanus Vaccine: unsure Date of Influenza Vaccine: 2012 Infectious Disease History: Reports: Hx Shingles Denies: History Other Infectious Disease - Family History Known Family History: Positive: Cardiac Disease - Father of heart attack Negative: Hypertension - Social History Alcohol Use: Rare Alcohol Amount: a glass a wine or beer every now and then Substance Use Type: Reports: None Smoking Status (MU): Former Smoker Have You Smoked in the Last Year: No Review of Systems Negative: Fever Positive: Depressed All Other Systems Reviewed And Are Negative: Yes Physical Exam - Summary Physical Exam Summary: Appearance: Well appearing, no pain distress Skin: warm, dry, reflects adequate perfusion Head/face: normal Eyes: EOMI, ANNALISA ENT: mucous membranes moist Neck: supple, non-tender Respiratory: CTA, breath sounds present Cardiovascular: RRR, pulses symmetrical Abdomen: non-tender, soft Bowel Sounds: present Musculoskeletal: normal, strength/ROM intact Neuro: normal, sensory motor intact, A&Ox3 Triage Information Reviewed: Yes Vital Signs Reviewed: Yes Course/Dx - Course Course Of Treatment: Wish it was medically cleared here and had a crisis evaluation by mental health. Upon reevaluation he was cleared for discharge with outpatient follow-up. He does have a primary care appointment later in the day today. He was discharged in good condition. - Differential Dx/Clinical Impression Differential Diagnosis/HQI/PQRI: Positive: Anxiety, Depression, Suicidal Ideation, Suicidal Gesture Provider Diagnosis: Depressive disorder Discharge - Sign-Out/Discharge Documenting (check all that apply): Patient Departure - DC - Discharge Plan Condition: Stable Disposition: HOME Referrals: Zackary Wallis MD [Primary Care Provider] - - Billing Disposition and Condition Condition: STABLE Disposition: Home - Attestation Statements Document Initiated by Scribe: Yes Documenting Scribe: Wali Stevens Provider For Whom Jose Enrique is Documenting (Include Credential): Ryder Garcia MD Scribe Attestation: Wali Weiner, scribed for Ryder Garcia MD on 08/14/18 at 1724. Scribe Documentation Reviewed: Yes Provider Attestation: The documentation as recorded by the Wali stone accurately reflects the service I personally performed and the decisions made by me, Ryder Garcia MD
[2018-08-14 13:19] VITALS: BP 132/72
== END 2018-08-14 13:17 | disposition home or self-care (01) ==
LOC: ED 09:06
DX: F32.9 Major depressive disorder, single episode, unspecified (principal); Z87.891 Personal history of nicotine dependence
CPT/HCPCS: 99282

== ENCOUNTER 2019-04-23 19:24 | Observation (INO) | payer MEDICARE ==
--- OUTSIDE RECORDS SUMMARY | 2019-04-23 19:46 | XMS REPORT | Continuity of Care Document ---
:1940 External Reference #:[id number] Author Name Mag Zulmagie Care Team Providers Name Role Phone Zackary Beth MD Primary Care Physician Unavailable Payers Date Identification Numbers Payment Provider Subscriber Effective: 2012 Policy Number: [id number] Medicare Blue Ppo Erlin Ceballos Group Number: [id number] [address]: [id number] [place] [address] Expires: 2012 Policy Number: [id number] Medicare Blue Ppo Erlin Ceballos PayID: [id number] [place] [address] Problems Active Problems Provider Date Mixed hyperlipidemia Kristopher Gaspar M.D. Onset: 08/02/2013 Benign essential hypertension Kristopher Gaspar M.D. Onset: 01/26/2012 Pure hypercholesterolemia Kristopher Gaspar M.D. Onset: 01/26/2012 Coronary arteriosclerosis Kristopher Gaspar M.D. Onset: 01/26/2012 Family History Date Family Member(s) Observation Comments : (age 60 Years) Father due to [place] Mother due to Cancer () Siblings 2 Social History Type Date Description Comments Sex Unknown Marital Status Lives With Female Partner Occupation Retired ETOH Use Rarely consumes alcohol Tobacco Use Start: Unknown End: Patient is a former quit in 1979 Unknown smoker Recreational Drug Use Never Used Drugs Smoking Status Reviewed: 04/10/19 Patient is a former quit in 1979 smoker Exercise Type/Frequency Exercises regularly Allergies, Adverse Reactions, Alerts Active Allergies Reaction Severity Comments Date Zocor mylagias 12/19/2011 Inactive Allergies NKDA 03/20/2007 Medications Active Medications SIG Qnty Indications Ordering Provider Date Zetia 1 by mouth every 90tabs Kristopher Alonzo 03/26/2019 10mg Tablets day Nasra Gaspar Crestor 1/2 tablet by 90tabs Kristopher Alonzo 02/05/2019 20mg Tablets mouth every day Nasra Gaspar Nitrostat one sl q5min up 25tabs I25.10 Kristopher Lenka 09/05/2018 0.4mg Tablets to 3 doses as Nasra Gaspar Sub needed Lisinopril 1 by mouth every 90tabs I10 Kristopher Alonzo 04/28/2018 20mg Tablets day Nasra Gaspar Aspirin 1 po qd Kristopher Alonzo 01/26/2012 81mg Chewtabs Nasra Gaspar Atenolol take 1/2 tablet 90tabs Kristopher Alonzo 02/22/2007 25mg Tablets by mouth once Nasra Gaspar daily Eye-Vites 1 po qd Unknown Tablets History Medications Valsartan 1 by mouth every 90tabs I10 Kristopher Alonzo 03/28/2018 - 80mg Tablets day Nasra Gaspar 04/28/2018 Crestor Take 2 tab by 90tabs Kristopher Alonzo 08/12/2017 - 10mg Tablets mouth daily Nasra Gaspar 02/05/2019 Lisinopril 2 by mouth every 90tabs Kristopher Alonzo 07/07/2017 - 10mg Tablets day Nasra Gaspar 03/28/2018 Zetia 1 by mouth every 30tabs Kristopher Alonzo 12/29/2016 - 10mg Tablets day hold as of Nasra Gaspar 07/13/2017 9.6.17 Atorvastatin Calcium 1/2 by mouth 90tabs Kristopher Alonzo 08/09/2016 - every night Nasra Gaspar 08/11/2017 10mg Tablets (restarted 10/26/16) Lipitor one tab po qhs Kristopher Alonzo 10/17/2012 - 20mg Tablets Nasra Gaspar 10/17/2012 Atorvastatin Calcium 1/2 tab by mouth 45tabs Kristopher Alonzo 10/17/2012 - every night at Nasra Gaspar 08/09/2016 20mg Tablets bedtime Lipitor 1 tablet po qhs 90tabs Kristopher Alonzo 11/15/2011 - 10mg Tablets Nasra Gaspar 10/17/2012 Simvastatin 1 po qd 30tabs Kristopher FLenka 09/27/2011 - 10mg Nasra Gaspar 11/15/2011 Tablets Simvastatin 1 po qd 90tabs Kristopher Alonzo 04/23/2011 - 20mg Nasra Gaspar 09/27/2011 Tablets Simvastatin 1/2 po qhs 100tabs Kristopher Alonzo 02/11/2011 - 80mg Nasra Gaspar 04/23/2011 Tablets Plavix 1 po qd 100tabs Kristopher FLenka 02/11/2011 - 75mg Tablets Nasra Gaspar 08/02/2013 Simvastatin 1 po qhs 100tabs Kristopher FLenka 01/22/2009 - 80mg Nasra Gaspar 02/11/2011 Tablets Aspirin 1 PO qd Kristopher FLenka 09/12/2008 - 325mg Tablets Nasra Gaspar 01/26/2012 Lipitor 1 PO QHS 90tabs Kristopher Alonzo 08/12/2008 - 80mg Tablets Nasra Gaspar 01/22/2009 Lipitor 1 po qd 90tabs Kristopher Alonzo 02/07/2008 - 40mg Tablets Nasra Gaspar 08/12/2008 Aspirin 1 PO qd Kristopher FLenka 02/07/2008 - 81mg Chewtabs Nasra Gaspar 09/12/2008 Pravachol 1 po qd Kristopher FLenka 10/10/2007 - 40mg Tablets Nasra Gaspar 02/07/2008 Pravastatin Sodium 1 PO qd 90tabs Kristopher FLenka 07/26/2007 - 80mg Nasra Gaspar 10/10/2007 Tablets Zetia 1 PO qd 30tabs Kristopher F. 05/09/2007 - 10mg Tablets Nasra Gaspar 02/07/2008 Pravastatin Sodium 1 PO qd 30tabs Kristopher Alonzo 05/09/2007 - 40mg Nasra Gaspar 07/26/2007 Tablets Plavix 1 PO qd 90tabs Kristopher Alonzo 03/20/2007 - 75mg Tablets Nasra Gaspar 02/11/2011 Aspirin 1 PO qd Kristopher Alonzo 03/20/2007 - 325mg Tablets Nasra Gaspar 02/07/2008 Pravastatin 1 PO qd Kristopher Alonzo 03/20/2007 - 20mg Nasra Gaspar 05/09/2007 Tablets Lisinopril 2 by mouth every 180tabs Kristopher Alonzo 03/20/2007 - 5mg Tablets day Nasra Gaspar 07/08/2017 Multi-Vitamin 1 PO qd Kristopher Alonzo 03/20/2007 - Tablets Nasra Gaspar Unknown Aspir-Low 1 po qd Kristopher Alonzo 02/22/2007 - 81mg Tablets Nasra Gaspar 03/20/2007 Lisinopril Kristopher Alonzo 02/22/2007 - Unknown Nasra Gaspar 03/20/2007 Tablets Pravachol 1 po qpm 90tabs Kristopher Alonzo 02/22/2007 - Unknown mg Nasra Gaspar 03/20/2007 Tablets Vital Signs Date Vital Result Comment 04/10/2019 4:02pm Height 75 inches 6'3" Weight 212.25 lb Heart Rate 74 /min regular, radial BP Systolic Sitting 152 mmHg LA, reg cuff BP Diastolic Sitting 72 mmHg LA, reg cuff BP Systolic Standing 148 mmHg LA, reg cuff BP Diastolic Standing 70 mmHg LA, reg cuff BMI (Body Mass Index) 26.5 kg/m2 Ejection Fraction 60%-65% echo 03/12/13 11/21/2018 1:07pm Height 75 inches 6'3" Weight 213.00 lb with sneakers Heart Rate 60 /min BP Systolic Sitting 128 mmHg lue reg cuff BP Diastolic Sitting 64 mmHg lue reg cuff BP Systolic Standing 140 mmHg lue reg cuff BP Diastolic Standing 70 mmHg lue reg cuff Respiratory Rate 12 /min BMI (Body Mass Index) 26.6 kg/m2 Ejection Fraction 60-65% echo. 03/12/13 09/05/2018 10:54am Height 75 inches 6'3" Weight 209.50 lb Heart Rate 68 /min BP Systolic Sitting 128 mmHg regular adult cuff left arm BP Diastolic Sitting 82 mmHg regular adult cuff left arm BMI (Body Mass Index) 26.2 kg/m2 Ejection Fraction 60-65% 03-12-2013 06/02/2018 9:09am Height 75 inches 6'3" Weight 209.00 lb Heart Rate 60 /min BP Systolic Sitting 136 mmHg Lue reg cuff BP Diastolic Sitting 76 mmHg Lue reg cuff BP Systolic Standing 132 mmHg Lue BP Diastolic Standing 82 mmHg Lue Respiratory Rate 14 /min BMI (Body Mass Index) 26.1 kg/m2 Ejection Fraction 60-65% 03/12/13 04/28/2018 9:38am Height 75 inches 6'3" Weight 212.00 lb with shoes Heart Rate 60 /min BP Systolic Sitting 158 mmHg Lue reg cuff BP Diastolic Sitting 76 mmHg Lue reg cuff BP Systolic Standing 148 mmHg Lue reg cuff BP Diastolic Standing 80 mmHg Lue reg cuff Respiratory Rate 15 /min BMI (Body Mass Index) 26.5 kg/m2 Ejection Fraction 60-65% 03/12/2013-echo 03/28/2018 12:53pm Height 75 inches 6'3" Weight 208.00 lb w/o shoes Heart Rate 66 /min reg BP Systolic Sitting 142 mmHg Rue, reg cuff BP Diastolic Sitting 84 mmHg Rue, reg cuff Respiratory Rate 14 /min BMI (Body Mass Index) 26.0 kg/m2 Ejection Fraction 57% as of 2018 stress test 09/13/2017 8:42am Height 75 inches 6'3" Weight 210.00 lb with shoes Heart Rate 60 /min BP Systolic Sitting 140 mmHg Lue reg cuff BP Diastolic Sitting 70 mmHg Lue reg cuff BP Systolic Standing 140 mmHg Lue reg cuff BP Diastolic Standing 78 mmHg Lue reg cuff Respiratory Rate 16 /min BMI (Body Mass Index) 26.2 kg/m2 Ejection Fraction 60-65% date 03/12/13 ECHO 07/13/2017 1:12pm Height 75 inches 6'3" Weight 207.50 lb with boots Heart Rate 66 /min BP Systolic Sitting 152 mmHg LA reg cuff BP Diastolic Sitting 88 mmHg LA reg cuff BMI (Body Mass Index) 25.9 kg/m2 Ejection Fraction 60%-65% echo 02/22/13 08/09/2016 9:36am Height 75 inches 6'3" Weight 201.00 lb w/shoes Heart Rate 56 /min 64 BP Systolic 156 mmHg home unit BP Diastolic 79 mmHg home unit BP Systolic Sitting 144 mmHg LA reg cuff BP Diastolic Sitting 72 mmHg LA reg cuff BMI (Body Mass Index) 25.1 kg/m2 Ejection Fraction 60-65% Echo 03/12/13 07/20/2016 9:07am Height 75 inches 6'3" Weight 204.00 lb w/shoes Heart Rate 64 /min BP Systolic Sitting 164 mmHg LA, regular BP Diastolic Sitting 84 mmHg LA, regular BMI (Body Mass Index) 25.5 kg/m2 Ejection Fraction 60-65% Echo 03/12/13 08/07/2015 3:32pm Height 75 inches 6'3" Weight 187.75 lb w/shoes Heart Rate 68 /min BP Systolic Sitting 142 mmHg LA reg cuff BP Diastolic Sitting 86 mmHg LA reg cuff BMI (Body Mass Index) 23.5 kg/m2 Ejection Fraction 62 NLM 02/28/14 08/07/2015 3:00pm Height 75 inches 6'3" 09/09/2014 1:23pm Height 75 inches 6'3" Weight 198.00 lb Heart Rate 68 /min BP Systolic 126 mmHg repeat la BP Diastolic 70 mmHg repeat la BP Systolic Sitting 174 mmHg BP Diastolic Sitting 70 mmHg Respiratory Rate 16 /min BMI (Body Mass Index) 24.7 kg/m2 02/05/2014 1:44pm Heart Rate 68 /min BP Systolic Sitting 148 mmHg BP Diastolic Sitting 80 mmHg 08/02/2013 8:44am Height 74 inches 6'2" Weight 188.00 lb Heart Rate 56 /min BP Systolic 124 mmHg BP Diastolic 64 mmHg BMI (Body Mass Index) 24.1 kg/m2 01/25/2013 8:35am Height 74 inches 6'2" Weight 187.00 lb Heart Rate 65 /min BP Systolic 130 mmHg BP Diastolic 62 mmHg Respiratory Rate 16 /min BMI (Body Mass Index) 24.0 kg/m2 01/26/2012 11:04am Height 74 inches 6'2" Weight 188.00 lb Heart Rate 55 /min BP Systolic Sitting 148 mmHg BP Diastolic Sitting 76 mmHg BMI (Body Mass Index) 24.1 kg/m2 02/11/2011 10:05am Height 74 inches 6'2" Weight 188.00 lb Heart Rate 56 /min BP Systolic Sitting 122 mmHg BP Diastolic Sitting 76 mmHg BMI (Body Mass Index) 24.1 kg/m2 12/10/2009 2:12pm Height 74 inches 6'2" Weight 193.00 lb Heart Rate 65 /min BP Systolic Sitting 120 mmHg L BP Diastolic Sitting 68 mmHg L BMI (Body Mass Index) 24.8 kg/m2 02/19/2009 2:41pm Weight 199.00 lb Heart Rate 59 /min BP Systolic Sitting 122 mmHg BP Diastolic Sitting 70 mmHg Respiratory Rate 16 /min 09/12/2008 10:13am Height 74 inches 6'2" Weight 203.00 lb Heart Rate 58 /min BP Systolic Sitting 142 mmHg BP Diastolic Sitting 82 mmHg Respiratory Rate 16 /min BMI (Body Mass Index) 26.1 kg/m2 08/12/2008 1:58pm Height 74 inches 6'2" Weight 206.00 lb Heart Rate 57 /min BP Systolic Sitting 140 mmHg BP Diastolic Sitting 64 mmHg BMI (Body Mass Index) 26.4 kg/m2 02/07/2008 8:53am Height 74 inches 6'2" Weight 209.00 lb Heart Rate 58 /min BP Systolic Sitting 120 mmHg L BP Diastolic Sitting 74 mmHg L BMI (Body Mass Index) 26.8 kg/m2 07/25/2007 9:48am Height 74 inches 6'2" Weight 204.00 lb Heart Rate 53 /min BP Systolic Sitting 120 mmHg BP Diastolic Sitting 70 mmHg BP Systolic Standing 114 mmHg BP Diastolic Standing 70 mmHg BMI (Body Mass Index) 26.2 kg/m2 03/20/2007 9:44am Height 74 inches 6'2" Weight 202.00 lb Heart Rate 52 /min BP Systolic Sitting 126 mmHg BP Diastolic Sitting 70 mmHg BP Systolic Standing 120 mmHg BP Diastolic Standing 70 mmHg BMI (Body Mass Index) 25.9 kg/m2 Results Test Date Facility Test Result H/L Range Note Lipid Panel - 03/21/2019 [facility] Creatine 427 U/L High 10- 223 [facility] [address] Kinase(CK) [place] [address] [phone] Comp Metabolic 03/21/2019 [facility] Sodium 141 mmol/L N 135- [address] [place], [place] [id number] [phone] Potassium 4.3 mmol/L N 3.5-5.0 Chloride 108 mmol/L N 101-111 Co2 Carbon Dioxide 29 mmol/L N 22-32 Anion Gap 4 mmol/L N 2-11 Glucose 118 mg/dL High 70-100 Blood Urea Nitrogen 26 mg/dL High 6-24 Creatinine 0.99 mg/dL N 0.67-1.17 BUN/Creatinine Ratio 26.3 High 8-20 Calcium 9.3 mg/dL N 8.6-10.3 Total Protein 6.7 g/dL N 6.4-8.9 Albumin 4.3 g/dL N 3.2-5.2 Globulin 2.4 g/dL N 2-4 Albumin/Globulin Ratio 1.8 N 1-3 Total Bilirubin 1.20 mg/dL High 0.2-1.0 Alkaline Phosphatase 48 U/L N 34-104 Alt 24 U/L N 7-52 Ast 31 U/L N 13-39 Egfr Non- 72.9 >60 Egfr 88.2 >60 1 Lipid Profile 03/21/2019 [facility] Triglycerides 86 mg/dL 2 (Trig/Chol/HDL) [address] [place], [place] [id number] [phone] Cholesterol 149 mg/dL 3 HDL Cholesterol 43.5 mg/dL 4 LDL Cholesterol 88 mg/dL 5 Lipid Panel - 01/16/2019 [facility] Creatine 288 U/L High 10- [address] [facility] [address] [employer](CK) [place], [place] [id number] [phone] Comp Metabolic 01/16/2019 [facility] Sodium 141 N 135-[address] mmol/L [place], [place] [id number] [phone] Potassium 4.8 mmol/L N 3.5-5.0 Chloride 104 mmol/L N 101-111 Co2 Carbon Dioxide 31 mmol/L N 22-32 Anion Gap 6 mmol/L N 2-11 Glucose 113 mg/dL High 70-100 Blood Urea Nitrogen 30 mg/dL High 6-24 Creatinine 1.12 mg/dL N 0.67-1.17 BUN/Creatinine Ratio 26.8 High 8-20 Calcium 9.5 mg/dL N 8.6-10.3 Total Protein 6.8 g/dL N 6.4-8.9 Albumin 4.2 g/dL N 3.2-5.2 Globulin 2.6 g/dL N 2-4 Albumin/Globulin Ratio 1.6 N 1-3 Total Bilirubin 0.60 mg/dL N 0.2-1.0 Alkaline Phosphatase 58 U/L N 34-104 Alt 25 U/L N 7-52 Ast 25 U/L N 13-39 Egfr Non- 63.2 >60 Egfr 76.5 >60 6 Lipid Profile 01/16/2019 [facility] Triglycerides 88 mg/dL 7 (Trig/Chol/HDL) [address] [place] [address] [phone] Cholesterol 149 mg/dL 8 HDL Cholesterol 39.6 mg/dL 9 LDL Cholesterol 92 mg/dL 10 Lipid Panel - 11/21/2018 [facility] Creatine <pending> [facility] [address] [employer](CK) [place] [address] [phone] Lipid Panel - 11/15/2018 [facility] Creatine 271 U/L High 10- 22 [address] [facility] [address] Kinase(CK) [address] [place] [address] [phone] Comp Metabolic 11/15/2018 [facility] Sodium 140 mmol/L N 135- [address] [place] [address] [phone] Potassium 4.3 mmol/L N 3.5-5.0 Chloride 105 mmol/L N 101-111 Co2 Carbon Dioxide 31 mmol/L N 22-32 Anion Gap 4 mmol/L N 2-11 Glucose 105 mg/dL High 70-100 Blood Urea Nitrogen 24 mg/dL N 6-24 Creatinine 0.92 mg/dL N 0.67-1.17 BUN/Creatinine Ratio 26.1 High 8-20 Calcium 9.1 mg/dL N 8.6-10.3 Total Protein 6.8 g/dL N 6.4-8.9 Albumin 4.1 g/dL N 3.2-5.2 Globulin 2.7 g/dL N 2-4 Albumin/Globulin Ratio 1.5 N 1-3 Total Bilirubin 0.90 mg/dL N 0.2-1.0 Alkaline Phosphatase 55 U/L N 34-104 Alt 23 U/L N 7-52 Ast 27 U/L N 13-39 Egfr Non- 79.4 >60 Egfr 96.0 >60 12 Lipid Profile 11/15/2018 [facility] Triglycerides 72 mg/dL 13 (Trig/Chol/HDL) [address] [place] [address] [phone] Cholesterol 158 mg/dL 14 HDL Cholesterol 47.3 mg/dL 15 LDL Cholesterol 96 mg/dL 16 Lipid Panel - 04/26/2018 [facility] Creatine 303 U/L High 10- 223 [address] [facility] [address] Kinase(CK) [place] [address] [phone] Comp Metabolic 04/26/2018 [facility] Sodium 140 N 135-[address] mmol/[place] [address] [phone] Potassium 4.3 mmol/L N 3.5-5.0 Chloride 104 mmol/L N 101-111 Co2 Carbon Dioxide 30 mmol/L N 22-32 Anion Gap 6 mmol/L N 2-11 Glucose 121 mg/dL High 70-100 Blood Urea Nitrogen 19 mg/dL N 6-24 Creatinine 0.93 mg/dL N 0.67-1.17 BUN/Creatinine Ratio 20.4 High 8-20 Calcium 9.3 mg/dL N 8.6-10.3 Total Protein 6.7 g/dL N 6.4-8.9 Albumin 4.1 g/dL N 3.2-5.2 Globulin 2.6 g/dL N 2-4 Albumin/Globulin Ratio 1.6 N 1-3 Total Bilirubin 1.60 mg/dL High 0.2-1.0 Alkaline Phosphatase 43 U/L N 34-104 Alt 22 U/L N 7-52 Ast 30 U/L N 13-39 Egfr Non- 78.6 >60 Egfr 101.1 >60 18 Lipid Profile 04/26/2018 [facility] Triglycerides 104 mg/dL 19 (Trig/Chol/HDL) [address] [place] [address] [phone] Cholesterol 167 mg/dL 20 HDL Cholesterol 44.4 mg/dL 21 LDL Cholesterol 102 mg/dL 22 Lipid Panel - 03/27/2018 [facility] Creatine 311 U/L High 10- [address] [facility] [address] Kinase(CK) [place] [address] [phone] Comp Metabolic 03/27/2018 [facility] Sodium 141 N 139-[address] mmol/[place] [address] [phone] Potassium 4.7 mmol/L N 3.5-5.0 Chloride 107 mmol/L N 101-111 Co2 Carbon Dioxide 30 mmol/L N 22-32 Anion Gap 4 mmol/L N 2-11 Glucose 102 mg/dL High 70-100 Blood Urea Nitrogen 19 mg/dL N 6-24 Creatinine 0.96 mg/dL N 0.67-1.17 BUN/Creatinine Ratio 19.8 N 8-20 Calcium 9.2 mg/dL N 8.6-10.3 Total Protein 6.7 g/dL N 6.4-8.9 Albumin 4.2 g/dL N 3.2-5.2 Globulin 2.5 g/dL N 2-4 Albumin/Globulin Ratio 1.7 N 1-3 Total Bilirubin 1.50 mg/dL High 0.2-1.0 Alkaline Phosphatase 49 U/L N 34-104 Alt 24 U/L N 7-52 Ast 30 U/L N 13-39 Egfr Non- 75.8 >60 Egfr 97.4 >60 23 Lipid Profile 03/27/2018 [facility] Triglycerides 78 mg/dL 24 (Trig/Chol/HDL) [address] [place] [address] [phone] Cholesterol 147 mg/dL 25 HDL Cholesterol 43.3 mg/dL 26 LDL Cholesterol 88 mg/dL 27 Laboratory test 09/08/2017 [facility] Creatine 266 U/L High 10 -[address] [employer](CK) [place] [address] [phone] Comp Metabolic 09/08/2017 [facility] Sodium 140 N 133-[address] mmol/[place] [address] [phone] Potassium 4.2 mmol/L N 3.5-5.0 Chloride 105 mmol/L N 101-111 Co2 Carbon Dioxide 30 mmol/L N 22-32 Anion Gap 5 mmol/L N 2-11 Glucose 100 mg/dL N 70-100 Blood Urea Nitrogen 22 mg/dL N 6-24 Creatinine 0.95 mg/dL N 0.67-1.17 BUN/Creatinine Ratio 23.2 High 8-20 Calcium 9.3 mg/dL N 8.6-10.3 Total Protein 6.6 g/dL N 6.4-8.9 Albumin 4.1 g/dL N 3.2-5.2 Globulin 2.5 g/dL N 2-4 Albumin/Globulin Ratio 1.6 N 1-3 Total Bilirubin 1.60 mg/dL High 0.2-1.0 Alkaline Phosphatase 49 U/L N 34-104 Alt 19 U/L N 7-52 Ast 25 U/L N 13-39 Egfr Non- 76.9 N >60 Egfr 98.9 N >60 28 Lipid Profile 09/08/2017 [facility] Triglycerides 81 mg/dL N 29 (Trig/Chol/HDL) [address] [place] [address] [phone] Cholesterol 154 mg/dL N 30 HDL Cholesterol 44.5 mg/dL N 31 LDL Cholesterol 93 mg/dL N 32 Lipid Panel - 08/10/2017 [facility] Creatine 241 U/L High 10- [address] [facility] [address] Kinase(CK) [place] [address] [phone] Comp Metabolic 08/10/2017 [facility] Sodium 141 N 133-[address] mmol/[place] [address] [phone] Potassium 4.3 mmol/L N 3.5-5.0 Chloride 106 mmol/L N 101-111 Co2 Carbon Dioxide 30 mmol/L N 22-32 Anion Gap 5 mmol/L N 2-11 Glucose 104 mg/dL High 70-100 Blood Urea Nitrogen 28 mg/dL High 6-24 Creatinine 0.89 mg/dL N 0.67-1.17 BUN/Creatinine Ratio 31.5 High 8-20 Calcium 9.0 mg/dL N 8.6-10.3 Total Protein 6.6 g/dL N 6.4-8.9 Albumin 4.2 g/dL N 3.2-5.2 Globulin 2.4 g/dL N 2-4 Albumin/Globulin Ratio 1.8 N 1-3 Total Bilirubin 1.40 mg/dL High 0.2-1.0 Alkaline Phosphatase 46 U/L N 34-104 Alt 20 U/L N 7-52 Ast 24 U/L N 13-39 Egfr Non- 82.9 N >60 Egfr 106.6 N >60 33 Lipid Profile 08/10/2017 [facility] Triglycerides 63 mg/dL N 34 (Trig/Chol/HDL) [address] [place] [address] [phone] Cholesterol 164 mg/dL N 35 HDL Cholesterol 42.3 mg/dL N 36 LDL Cholesterol 109 mg/dL N 37 Laboratory test 08/10/2017 [facility] Hemoglobin A1c 5.8 % N Less than [address] (Glyco HGB) 6.[address] [place] [address] [phone] Lipid Panel - 07/08/2017 [facility] Creatine 293 U/L High 10- 223 [address] [facility] [address] Kinase(CK) [place] [address] [phone] Comp Metabolic 07/08/2017 [facility] Sodium 140 N 133-[address] mmol/[place] [address] [phone] Potassium 4.4 mmol/L N 3.5-5.0 Chloride 105 mmol/L N 101-111 Co2 Carbon Dioxide 31 mmol/L N 22-32 Anion Gap 4 mmol/L N 2-11 Glucose 106 mg/dL High 70-100 Blood Urea Nitrogen 18 mg/dL N 6-24 Creatinine 0.88 mg/dL N 0.67-1.17 BUN/Creatinine Ratio 20.5 High 8-20 Calcium 9.5 mg/dL N 8.6-10.3 Total Protein 6.6 g/dL N 6.4-8.9 Albumin 4.1 g/dL N 3.2-5.2 Globulin 2.5 g/dL N 2-4 Albumin/Globulin Ratio 1.6 N 1-3 Total Bilirubin 1.60 mg/dL High 0.2-1.0 Alkaline Phosphatase 45 U/L N 34-104 Alt 20 U/L N 7-52 Ast 27 U/L N 13-39 Egfr Non- 84.0 N >60 Egfr 108.0 N >60 40 Lipid Profile 07/08/2017 [facility] Triglycerides 60 mg/dL N 41 (Trig/Chol/HDL) [address] [place] [address] [phone] Cholesterol 133 mg/dL N 42 HDL Cholesterol 47.3 mg/dL N 43 LDL Cholesterol 74 mg/dL N 44 Laboratory test 04/20/2017 [facility] Creatine 441 U/L High 10 -223 [address] [employer](CK) [place] [address] [phone] Lipid Panel - 01/28/2017 [facility] Creatine 337 U/L High 10- [address] [facility] [address] [employer]ase(CK) [place] [address] [phone] Comp Metabolic 01/28/2017 [facility] Sodium 141 N 133-[address] mmol/[place] [address] [phone] Potassium 4.3 mmol/L N 3.5-5.0 Chloride 105 mmol/L N 101-111 Co2 Carbon Dioxide 31 mmol/L N 22-32 Anion Gap 5 mmol/L N 2-11 Glucose 115 mg/dL High 70-100 Blood Urea Nitrogen 23 mg/dL N 6-24 Creatinine 0.93 mg/dL N 0.67-1.17 BUN/Creatinine Ratio 24.7 High 8-20 Calcium 9.4 mg/dL N 8.6-10.3 Total Protein 6.7 g/dL N 6.4-8.9 Albumin 4.2 g/dL N 3.2-5.2 Globulin 2.5 g/dL N 2-4 Albumin/Globulin Ratio 1.7 N 1-3 Total Bilirubin 1.30 mg/dL High 0.2-1.0 Alkaline Phosphatase 43 U/L N 34-104 Alt 25 U/L N 7-52 Ast 28 U/L N 13-39 Egfr Non- 78.8 N >60 Egfr 101.3 N >60 46 Lipid Profile 01/28/2017 [facility] Triglycerides 57 mg/dL N 47 (Trig/Chol/HDL) [address] [place] [address] [phone] Cholesterol 132 mg/dL N 48 HDL Cholesterol 46.6 mg/dL N 49 LDL Cholesterol 74 mg/dL N 50 Lipid Panel - 12/28/2016 [facility] Creatine 253 U/L High 10- [address] [facility] [address] [employer](CK) [place] [address] [phone] Comp Metabolic 12/28/2016 [facility] Sodium 139 N 133-[address] mmol/[place] [address] [phone] Potassium 4.5 mmol/L N 3.5-5.0 Chloride 105 mmol/L N 101-111 Co2 Carbon Dioxide 33 mmol/L High 22-32 Anion Gap 1 mmol/L Low 2-11 Blood Urea Nitrogen 21 mg/dL N 6-24 Creatinine 0.96 mg/dL N 0.67-1.17 BUN/Creatinine Ratio 21.9 High 8-20 Calcium 9.2 mg/dL N 8.6-10.3 Total Protein 6.7 g/dL N 6.4-8.9 Albumin 4.3 g/dL N 3.2-5.2 Globulin 2.4 g/dL N 2-4 Albumin/Globulin Ratio 1.8 N 1-3 Alkaline Phosphatase 46 U/L N 34-104 Alt 18 U/L N 7-52 Egfr Non- 76.0 N >60 Egfr 97.7 N >60 51 Glucose 106 mg/dL High 70-100 Total Bilirubin 1.60 mg/dL High 0.2-1.0 Ast 27 U/L N 13-39 Lipid Profile 12/28/2016 [facility] Triglycerides 69 mg/dL N 52 (Trig/Chol/HDL) [address] [place], [place] [id number] [phone] Cholesterol 173 mg/dL N 53 HDL Cholesterol 46.2 mg/dL N 54 LDL Cholesterol 113 mg/dL N 55 Laboratory test 10/26/2016 [facility] Creatine 305 U/L High 10 -223 [address] [employer](CK) [place], [place] [id number] [phone] Lipid Panel - 10/11/2016 [facility] Creatine 500 U/L High 10- 223 57, [address] [facility] [address] [employer](CK) [place], [place] [id number] [phone] Comp Metabolic 10/11/2016 [facility] Sodium 141 N 133-[address] mmol/[place] [address] [phone] Potassium 4.2 mmol/L N 3.5-5.0 Chloride 105 mmol/L N 101-111 Co2 Carbon Dioxide 32 mmol/L N 22-32 Anion Gap 4 mmol/L N 2-11 Glucose 111 mg/dL High 70-100 Blood Urea Nitrogen 23 mg/dL N 6-24 Creatinine 0.98 mg/dL N 0.67-1.17 BUN/Creatinine Ratio 23.5 High 8-20 Calcium 9.2 mg/dL N 8.6-10.3 Total Protein 6.5 g/dL N 6.4-8.9 Albumin 4.1 g/dL N 3.2-5.2 Globulin 2.4 g/dL N 2-4 Albumin/Globulin Ratio 1.7 N 1-3 Total Bilirubin 1.50 mg/dL High 0.2-1.0 Alkaline Phosphatase 47 U/L N 34-104 Alt 25 U/L N 7-52 Ast 36 U/L N 13-39 Egfr Non- 74.4 N >60 Egfr 95.6 N >60 59 Lipid Profile 10/11/2016 [facility] Triglycerides 73 mg/dL N 60 (Trig/Chol/HDL) [address] [place] [address] [phone] Cholesterol 146 mg/dL N 61 HDL Cholesterol 42.0 mg/dL N 62 LDL Cholesterol 89 mg/dL N 63 Laboratory test 08/03/2016 [facility] Magnesium 2.0 mg/dL N 1.9-2.[address] [place] [address] [phone] CBC Auto Diff 08/03/2016 [facility] White Blood 4.5 N 3.5- 10.[address] Count 10^3/[place] [address] [phone] Red Blood Count 5.01 10^6/uL N 4.0-5.4 Hemoglobin 14.9 g/dL N 14.0-18.0 Hematocrit 44 % N 42-52 Mean Corpuscular Volume 87 fL N 80-94 Mean Corpuscular Hemoglobin 30 pg N 27-31 Mean Corpuscular HGB Conc 34 g/dL N 31-36 Red Cell Distribution Width 13 % N 10.5-15 Platelet Count 151 10^3/uL N 150-450 Mean Platelet Volume 10 um3 N 7.4-10.4 Abs Neutrophils 2.1 10^3/uL N 1.5-7.7 Abs Lymphocytes 1.7 10^3/uL N 1.0-4.8 Abs Monocytes 0.5 10^3/uL N 0-0.8 Abs Eosinophils 0.1 10^3/uL N 0-0.6 Abs Basophils 0 10^3/uL N 0-0.2 Abs Nucleated RBC 0 10^3/uL N Granulocyte % 46.4 % N 38-83 Lymphocyte % 37.3 % N 25-47 Monocyte % 12.2 % High 1-9 Eosinophil % 3.2 % N 0-6 Basophil % 0.9 % N 0-2 Nucleated Red Blood Cells % 0 N Lipid Profile 08/03/2016 [facility] Triglycerides 72 mg/dL N 64 (Trig/Chol/HDL) [address] [place] [address] [phone] Cholesterol 143 mg/dL N 65 HDL Cholesterol 42.2 mg/dL N 66 LDL Cholesterol 86 mg/dL N 67 Comp Metabolic Panel 08/03/2016 [facility] Sodium 139 mmol/L N 133-[address] [place] [address] [phone] Potassium 3.7 mmol/L N 3.5-5.0 Chloride 102 mmol/L N 101-111 Co2 Carbon Dioxide 33 mmol/L High 22-32 Anion Gap 4 mmol/L N 2-11 Glucose 105 mg/dL High 70-100 Blood Urea Nitrogen 20 mg/dL N 6-24 Creatinine 0.93 mg/dL N 0.67-1.17 BUN/Creatinine Ratio 21.5 High 8-20 Calcium 9.1 mg/dL N 8.6-10.3 Total Protein 6.7 g/dL N 6.4-8.9 Albumin 4.2 g/dL N 3.2-5.2 Globulin 2.5 g/dL N 2-4 Albumin/Globulin Ratio 1.7 N 1-3 Total Bilirubin 1.50 mg/dL High 0.2-1.0 Alkaline Phosphatase 44 U/L N 34-104 Alt 23 U/L N 7-52 Ast 30 U/L N 13-39 Egfr Non- 79.0 N >60 Egfr 101.6 N >60 68 Lipid Panel 08/03/2016 [facility] Creatine 342 U/L High 10- 223 - JFM [address] Kinase(CK) [place] [address] [phone] CBC Auto 08/05/2015 [facility] White Blood 5.5 N 4.8-10.[address] Count 10^3/[place] [address] [phone] Red Blood Count 4.92 10^6/uL N 4.0-5.4 Hemoglobin 14.8 g/dL N 14.0-18.0 Hematocrit 45 % N 42-52 Mean Corpuscular Volume 91 fL N 80-94 Mean Corpuscular Hemoglobin 30 pg N 27-31 Mean Corpuscular HGB Conc 33 g/dL N 31-36 Red Cell Distribution Width 13 % N 10.5-15 Platelet Count 124 10^3/uL Low 150-450 Mean Platelet Volume 10 um3 N 7.4-10.4 Abs Neutrophils 3.2 10^3/uL N 1.5-7.7 Abs Lymphocytes 1.6 10^3/uL N 1.0-4.8 Abs Monocytes 0.6 10^3/uL N 0-0.8 Abs Eosinophils 0.2 10^3/uL N 0-0.6 Abs Basophils 0 10^3/uL N 0-0.2 Abs Nucleated RBC 0 10^3/uL N Granulocyte % 57.5 % N 38-83 Lymphocyte % 28.6 % N 25-47 Monocyte % 10.2 % High 1-9 Eosinophil % 3.1 % N 0-6 Basophil % 0.6 % N 0-2 Nucleated Red Blood Cells % 0 N Comp Metabolic Panel 08/05/2015 [facility] Sodium 140 mmol/L N 133-145 [address] [place] [address] [phone] Potassium 4.3 mmol/L N 3.5-5.0 Chloride 104 mmol/L N 101-111 Co2 Carbon Dioxide 32 mmol/L N 22-32 Anion Gap 4 mmol/L N 2-11 Glucose 98 mg/dL N 70-100 Blood Urea Nitrogen 27 mg/dL High 6-24 Creatinine 1.03 mg/dL N 0.67-1.17 BUN/Creatinine Ratio 26.2 High 8-20 Calcium 9.3 mg/dL N 8.6-10.3 Total Protein 6.8 g/dL N 6.4-8.9 Albumin 4.3 g/dL N 3.2-5.2 Globulin 2.5 g/dL N 2-4 Albumin/Globulin Ratio 1.7 N 1-3 Total Bilirubin 1.80 mg/dL High 0.2-1.0 Alkaline Phosphatase 47 U/L N 34-104 Alt 17 U/L N 7-52 Ast 26 U/L N 13-39 Egfr Non- 70.4 N >60 Egfr 90.5 N >60 69 Lipid Profile 08/05/2015 [facility] Triglycerides 70 mg/dL N 70 (Trig/Chol/HDL) [address] [place], [place] [id number] [phone] Cholesterol 151 mg/dL N 71 HDL Cholesterol 46.8 mg/dL N 72 LDL Cholesterol 90 mg/dL N 73 Laboratory test 08/05/2015 [facility] Creatine 222 U/L N 10- [address] Kinase(CK) [place] [address] [phone] Laboratory test 01/16/2015 [facility] Troponin I 0.01 N <0.03 [address] ng/[place] [address] [phone] Lipid Panel - 09/03/2014 Creatine Kinase 182 U/L N 10- 76, 77 JFM Comp Metabolic 09/03/2014 Sodium 138 N 133-145 Panel mmol/L Potassium 4.1 mmol/L N 3.7-5.6 Chloride 104 mmol/L N 101-111 Co2 Carbon Dioxide 30 mmol/L N 22-32 Anion Gap 4 mmol/L N 2-11 Glucose 114 mg/dL High 70-100 Blood Urea Nitrogen 28 mg/dL High 6-24 Creatinine 0.92 mg/dL N 0.67-1.17 BUN/Creatinine Ratio 30.4 High 8-20 Calcium 9.3 mg/dL N 8.6-10.3 Total Protein 6.5 g/dL N 6.4-8.9 Albumin 4.1 g/dL N 3.2-5.2 Globulin 2.4 g/dL N 2-4 Albumin/Globulin Ratio 1.7 N 1-3 Total Bilirubin 1.70 mg/dL High 0.2-1.0 Alkaline Phosphatase 45 U/L N 34-104 Alt 19 U/L N 7-52 Ast 23 U/L N 13-39 Egfr Non- 80.4 N >60 Egfr 103.4 N >60 78 Lipid Profile (Trig/Chol/HDL) 09/03/2014 Triglycerides 79 mg/dL N 79 Cholesterol 149 mg/dL N 80 HDL Cholesterol 44.8 mg/dL N 81 LDL Cholesterol 88 mg/dL N 82 Laboratory test finding 08/05/2014 Creatine Kinase 148 U/L N 10- Lipid Panel - JF 07/19/2014 Creatine Kinase 976 U/L High 10- 83, 84 Comp Metabolic Panel 07/19/2014 Sodium 134 mmol/L N 133-145 Potassium 4.5 mmol/L N 3.7-5.6 Chloride 100 mmol/L Low 101-111 Co2 Carbon Dioxide 33 mmol/L High 22-32 Anion Gap 1 mmol/L Low 2-11 Glucose 103 mg/dL High 70-100 Blood Urea Nitrogen 21 mg/dL N 6-24 Creatinine 0.87 mg/dL N 0.67-1.17 BUN/Creatinine Ratio 24.1 High 8-20 Calcium 9.3 mg/dL N 8.6-10.3 Total Protein 6.5 g/dL N 6.4-8.9 Albumin 4.2 g/dL N 3.2-5.2 Globulin 2.3 g/dL N 2-4 Albumin/Globulin Ratio 1.8 N 1-3 Total Bilirubin 1.30 mg/dL High 0.2-1.0 Alkaline Phosphatase 47 U/L N 34-104 Alt 34 U/L N 7-52 Ast 50 U/L High 13-39 Egfr Non- 85.8 N >60 Egfr 110.3 N >60 85 Lipid Profile (Trig/Chol/HDL) 07/19/2014 Triglycerides 67 mg/dL N 86 Cholesterol 138 mg/dL N 87 HDL Cholesterol 44.5 mg/dL N 88 LDL Cholesterol 80 mg/dL N 89 CBC Auto Diff 07/19/2014 White Blood Count 4.7 10^3/uL Low 4.8-10.8 Red Blood Count 4.78 10^6/uL N 4.0-5.4 Hemoglobin 14.6 g/dL N 14.0-18.0 Hematocrit 43 % N 42-52 Mean Corpuscular Volume 89 fL N 80-94 Mean Corpuscular Hemoglobin 31 pg N 27-31 Mean Corpuscular HGB Conc 34 g/dL N 31-36 Red Cell Distribution Width 13 % N 10.5-15 Platelet Count 138 10^3/uL Low 150-450 Mean Platelet Volume 9 um3 N 7.4-10.4 Abs Neutrophils 2.5 10^3/uL N 1.5-7.7 Abs Lymphocytes 1.4 10^3/uL N 1.0-4.8 Abs Monocytes 0.6 10^3/uL N 0-0.8 Abs Eosinophils 0.2 10^3/uL N 0-0.6 Abs Basophils 0 10^3/uL N 0-0.2 Abs Nucleated RBC 0 10^3/uL N Granulocyte % 53.9 % N 38-83 Lymphocyte % 29.8 % N 25-47 Monocyte % 12.1 % High 1-9 Eosinophil % 3.5 % N 0-6 Basophil % 0.7 % N 0-2 Nucleated Red Blood Cells % 0 N Lipid Profile 08/10/2013 [facility] Triglycerides 76 mg/dL 40 -200 (Trig/Chol/HDL) [address] [place] [address] [phone] Cholesterol 146 mg/dL Less than 200 HDL Cholesterol 43 mg/dL 40-60 90 Cholesterol/HDL Ratio 3.4 Average 1-4.44 LDL Cholesterol 87.8 Less Than 100 91 Comp Metabolic Panel 08/10/2013 [facility] Sodium 141 mmol/L 133-[address] [place] [address] [phone] Potassium 4.2 mmol/L 3.5-5.0 Chloride 107 mmol/L 101-111 Co2 Carbon Dioxide 31.0 mmol/L 22-32 Anion Gap 3.0 mmol/L 2-11 Glucose 101 mg/dL High 70-100 Blood Urea Nitrogen 19 mg/dL 6-24 Creatinine 0.90 mg/dL 0.50-1.40 BUN/Creatinine Ratio 21.1 High 8-20 Calcium 9.0 mg/dL 8.1-9.9 Total Protein 6.3 g/dL 6.2-8.1 Albumin 3.8 g/dL 3.2-5.2 Globulin 2.5 g/dL 2-4 Albumin/Globulin Ratio 1.5 1-3 Total Bilirubin 1.4 mg/dL 0.4-1.5 Alkaline Phosphatase 43 U/L 30-110 Alt 27 U/L 14-54 Ast 33 U/L 12-42 Egfr Non- 82.7 >60 Egfr 106.4 >60 92 Lipid Panel 08/10/2013 [facility] Creatine Kinase 312 U/L High 0-200 - JFM [address] [place] [address] [phone] CBC Auto 04/09/2013 [facility] White Blood 4.4 Low 4.8-10.[address] Count 10^3/[place] [address] [phone] Red Blood Count 4.58 10^6/uL 4.0-5.4 Hemoglobin 14.2 g/dL 14.0-18.0 Hematocrit 41 % Low 42-52 Mean Corpuscular Volume 90 fL 80-94 Mean Corpuscular Hemoglobin 31 pg 27-31 Mean Corpuscular HGB Conc 34 g/dL 31-36 Red Cell Distribution Width 13 % 10.5-15 Platelet Count 142 10^3/uL Low 150-450 Mean Platelet Volume 8 um3 7.4-10.4 Abs Neutrophils 2.8 10^3/uL 1.5-7.7 Abs Lymphocytes 1.1 10^3/uL 1.0-4.8 Abs Monocytes 0.4 10^3/uL 0-0.8 Abs Eosinophils 0.1 10^3/uL 0-0.6 Abs Basophils 0 10^3/uL 0-0.2 Abs Nucleated RBC 0 10^3/uL Granulocyte % 63.7 % 38-83 Lymphocyte % 25.6 % 25-47 Monocyte % 9.0 % 1-9 Eosinophil % 1.3 % 0-6 Basophil % 0.4 % 0-2 Nucleated Red Blood Cells % 0.1 Inr/Protime 04/09/2013 [facility] Inr 0.92 0.87-0.[address] [place] [address] [phone] Laboratory test 04/09/2013 [facility] B Type 29.0 0-[address] Natriuretic pg/[place] [address] Peptide [phone] Comp Metabolic 04/09/2013 [facility] Sodium 140 133-[address] mmol/L [place], [place] [id number] [phone] Potassium 4.1 mmol/L 3.5-5.0 Chloride 104 mmol/L 101-111 Co2 Carbon Dioxide 30.0 mmol/L 22-32 Anion Gap 6.0 mmol/L 2-11 Glucose 115 mg/dL High 70-100 Blood Urea Nitrogen 14 mg/dL 6-24 Creatinine 0.80 mg/dL 0.50-1.40 BUN/Creatinine Ratio 17.5 8-20 Calcium 8.8 mg/dL 8.1-9.9 Total Protein 6.1 g/dL Low 6.2-8.1 Albumin 4.0 g/dL 3.2-5.2 Globulin 2.1 g/dL 2-4 Albumin/Globulin Ratio 1.9 1-3 Total Bilirubin 1.5 mg/dL 0.4-1.5 Alkaline Phosphatase 45 U/L 30-110 Alt 26 U/L 14-54 Ast 30 U/L 12-42 Egfr Non- 94.8 >60 Egfr 121.9 >60 93 Laboratory test 04/09/2013 [facility] Creatine 257 U/L High 0- [address] [place] [address] [phone] CKMB 04/09/2013 [facility] CKMB ng/mL 7.1 High 0.3-4.[address] ng/[place] [address] [phone] Laboratory test 04/09/2013 [facility] Troponin I 0.01 0-0.06 [address] ng/[place] [address] [phone] Myoglobin 42.00 ng/mL 17.4-105.7 C Reactive Protein < 0.5 mg/dL Less than 0.5 Lipid Panel - 12/15/2012 [facility] Creatine 207 U/L High 0- [address] [place] [address] [phone] Comp Metabolic 12/15/2012 [facility] Sodium 139 133-[address] mmol/[place] [address] [phone] Potassium 4.4 mmol/L 3.5-5.0 Chloride 106 mmol/L 101-111 Co2 Carbon Dioxide 30.0 mmol/L 22-32 Anion Gap 3.0 mmol/L 2-11 Glucose 99 mg/dL 70-100 Blood Urea Nitrogen 24 mg/dL 6-24 Creatinine 0.90 mg/dL 0.50-1.40 BUN/Creatinine Ratio 26.7 High 8-20 Calcium 9.3 mg/dL 8.1-9.9 Total Protein 6.4 g/dL 6.2-8.1 Albumin 4.2 g/dL 3.2-5.2 Globulin 2.2 g/dL 2-4 Albumin/Globulin Ratio 1.9 1-3 Total Bilirubin 1.1 mg/dL 0.4-1.5 Alkaline Phosphatase 60 U/L 30-110 Alt 28 U/L 14-54 Ast 31 U/L 12-42 Egfr Non- 82.7 >60 Egfr 106.4 >60 96 Lipid Profile 12/15/2012 [facility] Triglycerides 52 mg/dL 40 -200 (Trig/Chol/HDL) [address] [place] [address] [phone] Cholesterol 161 mg/dL Less than 200 HDL Cholesterol 47 mg/dL 40-60 97 Cholesterol/HDL Ratio 3.4 Average 1-4.44 LDL Cholesterol 103.6 mg/dL High Less Than 100 98 Lipid Panel 10/13/2012 [facility] Creatine Kinase 225 U/L High 0-200 99 - JFM [address] [place] [address] [phone] CMP Panel 10/13/2012 [facility] Sodium 142 mmol/L 133-145 [address] [place] [address] [phone] Potassium 4.4 mmol/L 3.5-5.0 Chloride 107 mmol/L 101-111 Co2 Carbon Dioxide 30.0 mmol/L 22-32 Anion Gap 5.0 mmol/L 2-11 Glucose 102 mg/dL High 70-100 Blood Urea Nitrogen 19 mg/dL 6-24 Creatinine 0.80 mg/dL 0.50-1.40 BUN/Creatinine Ratio 23.8 High 8-20 Calcium 9.3 mg/dL 8.1-9.9 Total Protein 6.6 g/dL 6.2-8.1 Albumin 4.0 g/dL 3.2-5.2 Globulin 2.6 g/dL 2-4 Albumin/Globulin Ratio 1.5 1-3 Total Bilirubin 1.7 mg/dL High 0.4-1.5 Alkaline Phosphatase 42 U/L 30-110 Alt 23 U/L 14-54 Ast 32 U/L 12-42 Egfr Non- 95.0 >60 Egfr 122.2 >60 100 Lipid Panel 10/13/2012 [facility] Triglycerides 47 mg/dL 40- 200 [address] [place] [address] [phone] Cholesterol 157 mg/dL Less than 200 HDL Cholesterol 42 mg/dL 40-60 101 Cholesterol/HDL Ratio 3.7 Average 1-4.44 LDL Cholesterol 105.6 mg/dL High Less Than 100 102 Lipid Panel - 03/21/2012 [facility] CPK (Creatine 234 U/L High 0-[address] Kinase) [place] [address] [phone] Comp Metabolic 03/21/2012 [facility] Sodium 139 135-[address] mmol/[place] [address] [phone] Potassium 4.2 mmol/L 3.5-5.0 Chloride 102 mmol/L 101-111 Co2 (Carbon Dioxide) 30.0 mmol/L 22-32 Anion Gap 7.0 mmol/L 2-11 103 Glucose 116 mg/dL High 70-100 BUN 16 mg/dL 6-24 Creatinine 0.8 mg/dL 0.50-1.40 One Over Creatinine 1.25 BUN/Creatinine Ratio 20.0 8-20 Calcium 9.3 mg/dL 8.1-9.9 Total Protein 6.5 GM/DL 6.2-8.1 Albumin 4.3 GM/DL 3.2-5.2 Globulin 2.2 GM/DL 2-4 Albumin/Globulin Ratio 2.0 1-3 Bilirubin Total 1.6 mg/dL High 0.4-1.5 104 Alkaline Phosphatase 43 U/L 39-117 Alt (SGPT) 32 U/L 17-63 Ast (Sgot) 36 U/L 12-42 eGFR Non- 95.0 > 60 eGFR 122.2 > 60 105 Lipid Profile 03/21/2012 [facility] Triglyceride 87 mg/dL 40- 200 (Trig/Chol/HDL) [address] [place] [address] [phone] Cholesterol 173 mg/dL Less Than 200 106 High Density Lipoprotein 43 mg/dL 40-60 107 Cholesterol/HDL Ratio 4.02 AVERAGE 1-4.97 Low Density Lipoprotein 113 mg/dL High Less Than 100 108 Lipid Panel - 01/21/2012 [facility] CPK (Creatine 187 U/L 0- [address] Kinase) [place] [address] [phone] Comp Metabolic 01/21/2012 [facility] Sodium 139 135-[address] mmol/[place] [address] [phone] Potassium 4.4 mmol/L 3.5-5.0 Chloride 105 mmol/L 101-111 Co2 (Carbon Dioxide) 31.0 mmol/L 22-32 Anion Gap 3.0 mmol/L 2-11 109 Glucose 101 mg/dL High 70-100 BUN 18 mg/dL 6-24 Creatinine 0.9 mg/dL 0.50-1.40 One Over Creatinine 1.11 BUN/Creatinine Ratio 20.0 8-20 Calcium 8.8 mg/dL 8.1-9.9 Total Protein 6.1 GM/DL Low 6.2-8.1 Albumin 3.9 GM/DL 3.2-5.2 Globulin 2.2 GM/DL 2-4 Albumin/Globulin Ratio 1.8 1-3 Bilirubin Total 1.5 mg/dL 0.4-1.5 110 Alkaline Phosphatase 45 U/L 39-117 Alt (SGPT) 30 U/L 17-63 Ast (Sgot) 34 U/L 12-42 eGFR Non- 82.9 > 60 eGFR 106.7 > 60 111 Lipid Profile 01/21/2012 [facility] Triglyceride 69 mg/dL 40- 200 (Trig/Chol/HDL) [address] [place], [place] [id number] [phone] Cholesterol 192 mg/dL Less Than 200 112 High Density Lipoprotein 47 mg/dL 40-60 113 Cholesterol/HDL Ratio 4.09 AVERAGE 1-4.97 Low Density Lipoprotein 131 mg/dL High Less Than 100 114 Laboratory test 01/20/2012 [facility] PSA,Diagnostic 4.30 High 0-4 [address] NG/[place] [address] [phone] Creatinine 01/20/2012 [facility] Creatinine 0.9 mg/dL 0.50- 1. [address] [place] [address] [phone] One Over Creatinine 1.11 eGFR Non- 82.9 > 60 eGFR 106.7 > 60 116 Laboratory test 01/20/2012 [facility] BUN 23 mg/dL 6-[address] [place] [address] [phone] Lipid Panel - JFM 11/11/2011 [facility] CPK (Creatine 112 U/L 0-[address] Kinase) [place] [address] [phone] Comp Metabolic 11/11/2011 [facility] Sodium 142 mmol/L 135- [address] [place] [address] [phone] Potassium 4.3 mmol/L 3.5-5.0 Chloride 104 mmol/L 101-111 Co2 (Carbon Dioxide) 33.0 mmol/L High 22-32 Anion Gap 5.0 mmol/L 2-11 117 Glucose 114 mg/dL High 70-100 BUN 22 mg/dL 6-24 Creatinine 1.1 mg/dL 0.50-1.40 One Over Creatinine 0.90 BUN/Creatinine Ratio 20.0 8-20 Calcium 9.7 mg/dL 8.1-9.9 Total Protein 6.5 GM/DL 6.2-8.1 Albumin 4.3 GM/DL 3.2-5.2 Globulin 2.2 GM/DL 2-4 Albumin/Globulin Ratio 2.0 1-3 Bilirubin Total 1.5 mg/dL 0.4-1.5 118 Alkaline Phosphatase 48 U/L 39-117 Alt (SGPT) 23 U/L 17-63 Ast (Sgot) 30 U/L 12-42 eGFR Non- 65.8 > 60 eGFR 84.6 > 60 119 Lipid Profile 11/11/2011 [facility] Triglyceride 75 mg/dL 40- 200 (Trig/Chol/HDL) [address] [place] [address] [phone] Cholesterol 242 mg/dL High Less Than 200 120 High Density Lipoprotein 50 mg/dL 40-60 121 Cholesterol/HDL Ratio 4.84 AVERAGE 1-4.97 Low Density Lipoprotein 177 mg/dL High Less Than 100 122 Lipid Panel - 09/17/2011 [facility] CPK (Creatine 317 U/L High 0-[address] Kinase) [place] [address] [phone] Comp Metabolic 09/17/2011 [facility] Sodium 142 135-[address] mmol/[place] [address] [phone] Potassium 4.5 mmol/L 3.5-5.0 Chloride 106 mmol/L 101-111 Co2 (Carbon Dioxide) 31.0 mmol/L 22-32 Anion Gap 5.0 mmol/L 2-11 123 Glucose 108 mg/dL High 70-100 BUN 20 mg/dL 6-24 Creatinine 1.0 mg/dL 0.50-1.40 One Over Creatinine 1.00 BUN/Creatinine Ratio 20.0 8-20 Calcium 9.8 mg/dL 8.1-9.9 Total Protein 6.2 GM/DL 6.2-8.1 Albumin 4.2 GM/DL 3.2-5.2 Globulin 2.0 GM/DL 2-4 Albumin/Globulin Ratio 2.1 1-3 Bilirubin Total 1.5 mg/dL 0.4-1.5 124 Alkaline Phosphatase 50 U/L 39-117 Alt (SGPT) 31 U/L 17-63 Ast (Sgot) 41 U/L 12-42 eGFR Non- 73.7 > 60 eGFR 94.7 > 60 125 Lipid Profile 09/17/2011 [facility] Triglyceride 66 mg/dL 40- 200 (Trig/Chol/HDL) [address] [place] [address] [phone] Cholesterol 185 mg/dL Less Than 200 126 High Density Lipoprotein 47 mg/dL 40-60 127 Cholesterol/HDL Ratio 3.94 AVERAGE 1-4.97 Low Density Lipoprotein 125 mg/dL High Less Than 100 128 Laboratory test 07/05/2011 [facility] CPK (Creatine 108 U/L 0 -[address] Kinase) [place] [address] [phone] Lipid Panel - 06/24/2011 [facility] CPK (Creatine 222 U/L High 0-[address] Kinase) [place] [address] [phone] Comp Metabolic 06/24/2011 [facility] Sodium 141 135-[address] mmol/[place] [address] [phone] Potassium 4.4 mmol/L 3.5-5.0 Chloride 103 mmol/L 101-111 Co2 (Carbon Dioxide) 30.0 mmol/L 22-32 Anion Gap 8.0 mmol/L 2-11 129 Glucose 95 mg/dL 70-100 BUN 20 mg/dL 6-24 Creatinine 0.90 mg/dL 0.50-1.40 One Over Creatinine 1.10 BUN/Creatinine Ratio 22.2 High 8-20 Calcium 9.2 mg/dL 8.1-9.9 Total Protein 6.5 GM/DL 6.2-8.1 Albumin 4.2 GM/DL 3.2-5.2 Globulin 2.3 GM/DL 2-4 Albumin/Globulin Ratio 1.8 1-3 Bilirubin Total 2.0 mg/dL High 0.4-1.5 130 Alkaline Phosphatase 42 U/L 39-117 Alt (SGPT) 25 U/L 17-63 Ast (Sgot) 30 U/L 12-42 eGFR Non- 83.2 > 60 eGFR 107.0 > 60 131 Lipid Profile 06/24/2011 [facility] Triglyceride 56 mg/dL 40- 200 (Trig/Chol/HDL) [address] [place] [address] [phone] Cholesterol 162 mg/dL Less Than 200 132 High Density Lipoprotein 43 mg/dL 40-60 133 Cholesterol/HDL Ratio 3.77 AVERAGE 1-4.97 Low Density Lipoprotein 108 mg/dL High Less Than 100 134 Comp Metabolic Panel 04/22/2011 [facility] Sodium 143 mmol/L 135-145 [address] [place] [address] [phone] Potassium 4.5 mmol/L 3.5-5.0 Chloride 104 mmol/L 101-111 Co2 (Carbon Dioxide) 34.0 mmol/L High 22-32 Anion Gap 5.0 mmol/L 2-11 135 Glucose 104 mg/dL High 70-100 BUN 20 mg/dL 6-24 Creatinine 1.10 mg/dL 0.50-1.40 One Over Creatinine 0.90 BUN/Creatinine Ratio 18.2 8-20 Calcium 9.5 mg/dL 8.1-9.9 Total Protein 5.9 GM/DL Low 6.2-8.1 Albumin 4.1 GM/DL 3.2-5.2 Globulin 1.8 GM/DL Low 2-4 Albumin/Globulin Ratio 2.3 1-3 Bilirubin Total 1.5 mg/dL 0.4-1.5 136 Alkaline Phosphatase 52 U/L 39-117 Alt (SGPT) 29 U/L 17-63 Ast (Sgot) 35 U/L 12-42 eGFR Non- 66.0 > 60 eGFR 84.9 > 60 137 Lipid Profile 04/22/2011 [facility] Triglyceride 59 mg/dL 40- 200 (Trig/Chol/HDL) [address] [place] [address] [phone] Cholesterol 153 mg/dL Less Than 200 138 High Density Lipoprotein 46 mg/dL 40-60 139 Cholesterol/HDL Ratio 3.33 AVERAGE 1-4.97 Low Density Lipoprotein 95 mg/dL Less Than 100 140 Laboratory test 04/22/2011 [facility] CPK (Creatine 221 U/L High 0-[address] Kinase) [place] [address] [phone] Lipid Panel - 02/04/2011 [facility] CPK (Creatine 278 U/L High 0-[address] Kinase) [place] [address] [phone] Comp Metabolic 02/04/2011 [facility] Sodium 138 135-[address] mmol/[place] [address] [phone] Potassium 4.4 mmol/L 3.5-5.0 Chloride 104 mmol/L 101-111 Co2 (Carbon Dioxide) 30.0 mmol/L 22-32 Anion Gap 4.0 mmol/L 2-11 141 Glucose 102 mg/dL High 70-100 BUN 22 mg/dL 6-24 Creatinine 0.90 mg/dL 0.50-1.40 One Over Creatinine 1.10 BUN/Creatinine Ratio 24.4 High 8-20 Calcium 9.4 mg/dL 8.1-9.9 Total Protein 6.7 GM/DL 6.2-8.1 Albumin 4.2 GM/DL 3.2-5.2 Globulin 2.5 GM/DL 2-4 Albumin/Globulin Ratio 1.7 1-3 Bilirubin Total 2.0 mg/dL High 0.4-1.5 142 Alkaline Phosphatase 39 U/L 39-117 Alt (SGPT) 24 U/L 17-63 Ast (Sgot) 34 U/L 12-42 eGFR Non- 83.2 > 60 eGFR 107.0 > 60 143 Lipid Profile 02/04/2011 [facility] Triglyceride 74 mg/dL 40- 200 (Trig/Chol/HDL) [address] [place] [address] [phone] Cholesterol 152 mg/dL Less Than 200 144 High Density Lipoprotein 46 mg/dL 40-60 145 Cholesterol/HDL Ratio 3.30 AVERAGE 1-4.97 Low Density Lipoprotein 91 mg/dL Less Than 100 146 CBC Auto Diff 02/04/2011 [facility] White Blood 4.8 CUMM 4.8- 10.[address] [place] [address] [phone] Red Cell Count 4.65 CUMM 4.6-6.2 Hemoglobin 14.4 g/dL 14.0-18.0 Hematocrit 42 % 42-52 Mean Corpuscular Volume 89 um3 80-94 Mean Corpuscular Hemoglob 31 pg 27-31 Mean Corpuscular HGB Cone 35 g/dL 32-36 Redcell Distribution WDTH 13 % 10.5-15 Platelet Count 146 CUMM Low 150-450 Mean Platelet Volume 9.0 um3 7.4-10.4 Gran % 54.1 % 38-83 Lymph % 31.1 % 25-47 Mononuclear % 10.5 % High 1-9 Eosinophil % 3.6 % 0-6 Basophil % 0.7 % 0-2 Abs Lymphs 1.5 1.0-4.8 Abs Mononuclear 0.5 0-0.8 Absolute Neutrophil Count 2.6 1.5-7.7 Abs Eosinophils 0.2 0-0.6 Abs Basophils 0 0-0.2 Laboratory test 02/04/2011 [facility] TSH 2.41 MIU/ML 0.34- 5.60 finding [address] [place] [address] [phone] Lipid Panel - 12/03/2009 [facility] CPK 162 U/L 0-200 JFM [address] [facility] ([place] [address] Kinase) [phone] Comp Metabolic 12/03/2009 [facility] Sodium 140 mmol/L 135- 145 Panel [address] [place] [address] [phone] Potassium 4.3 mmol/L 3.5-5.0 Chloride 103 mmol/L 101-111 Co2 (Carbon Dioxide) 31.0 mmol/L 22-32 Anion Gap 6.0 mmol/L 2-11 147 Glucose 121 mg/dL High 70-100 148 BUN 15 mg/dL 6-24 Creatinine 0.90 mg/dL 0.50-1.40 One Over Creatinine 1.10 BUN/Creatinine Ratio 16.7 8-20 Calcium 9.6 mg/dL 8.1-9.9 149 Total Protein 6.2 GM/DL 6.2-8.1 Albumin 4.1 GM/DL 3.2-5.2 Globulin 2.1 GM/DL 2-4 Albumin/Globulin Ratio 2.0 1-3 Bilirubin Total 1.7 mg/dL High 0.4-1.5 150 Alkaline Phosphatase 47 U/L 39-117 Alt (SGPT) 29 U/L 17-63 Ast (Sgot) 29 U/L 12-42 eGFR Non- 88.7 > 60 eGFR 107.3 > 60 151 Lipid Profile 12/03/2009 [facility] Triglyceride 65 mg/dL 40- 200 (Trig/Chol/HDL) [address] [place] [address] [phone] Cholesterol 145 mg/dL Less Than 200 152 High Density Lipoprotein 41 mg/dL 40-60 153 Cholesterol/HDL Ratio 3.54 AVERAGE 1-4.97 Low Density Lipoprotein 91 mg/dL Less Than 100 154 Lipid Panel - 04/10/2009 [facility] CPK (Creatine 220 U/L High 0-[address] Kinase) [place] [address] [phone] Comp Metabolic 04/10/2009 [facility] Sodium 142 135-[address] mmol/[place] [address] [phone] Potassium 5.0 mmol/L 3.5-5.0 Chloride 105 mmol/L 101-111 Co2 (Carbon Dioxide) 32.0 mmol/L 22-32 Anion Gap 5.0 mmol/L 2-11 155 Glucose 114 mg/dL High 70-100 156 BUN 18 mg/dL 6-24 Creatinine 1.00 mg/dL 0.50-1.40 One Over Creatinine 1.00 BUN/Creatinine Ratio 18.0 8-20 Calcium 9.7 mg/dL 8.1-9.9 157 Total Protein 6.4 GM/DL 6.2-8.1 Albumin 4.3 GM/DL 3.2-5.2 Globulin 2.1 GM/DL 2-4 Albumin/Globulin Ratio 2.0 1-3 Bilirubin Total 1.9 mg/dL High 0.4-1.5 158 Alkaline Phosphatase 54 U/L 39-117 Alt (SGPT) 27 U/L 17-63 Ast (Sgot) 31 U/L 12-42 Lipid Profile 04/10/2009 [facility] Triglyceride 64 mg/dL 40- 200 (Trig/Chol/HDL) [address] [place] [address] [phone] Cholesterol 147 mg/dL Less Than 200 159 High Density Lipoprotein 40 mg/dL 40-60 160 Cholesterol/HDL Ratio 3.68 AVERAGE 1-4.97 Low Density Lipoprotein 94 mg/dL Less Than 100 161 1 Because ethnic data is not always readily available, this report includes an eGFR for both -Americans and non- Americans. The National Kidney Disease Education Program (NKDEP) does not endorse the use of the MDRD equation for patients that are not between the ages of 18 and 70, are , have extremes of body size, muscle mass, or nutritional status, or are non- or non-. According to the [employer], irrespective of diagnosis, the stage of the disease is based on the level of kidney function: Stage Description GFR(mL/min/1.73 m(2)) 1 Kidney damage with normal or decreased GFR 90 2 Kidney damage with mild decrease in GFR 60-89 3 Moderate decrease in GFR 30-59 4 Severe decrease in GFR 15-29 5 Kidney failure <15 (or dialysis) 2 Desirable: <150 Borderline High: 150-199 High: 200-499 Very High: >500 3 Desirable: <200 Borderline High: 200-239 High: >239 4 Low: <40 Desirable: 40-60 High: >60 5 Desirable: <100 Near Optimal: 100-129 Borderline High: 130-159 High: 160-189 Very High: >189 6 Because ethnic data is not always readily available, this report includes an eGFR for both -Americans and non- Americans. The National Kid[employer] Disease Education Program (NKDEP) does not endorse the use of the MDRD equation for patients that are not between the ages of 18 and 70, are , have extremes of body size, muscle mass, or nutritional status, or are non- or non-. According to the [employer], irrespective of diagnosis, the stage of the disease is based on the level of kidney function: Stage Description GFR(mL/min/1.73 m(2)) 1 Kidney damage with normal or decreased GFR 90 2 Kidney damage with mild decrease in GFR 60-89 3 Moderate decrease in GFR 30-59 4 Severe decrease in GFR 15-29 5 Kidney failure <15 (or dialysis) 7 Desirable: <150 Borderline High: 150-199 High: 200-499 Very High: >500 8 Desirable: <200 Borderline High: 200-239 High: >239 9 Low: <40 Desirable: 40-60 High: >60 10 Desirable: <100 Near Optimal: 100-129 Borderline High: 130-159 High: 160-189 Very High: >189 11 FASTING 12 Because ethnic data is not always readily available, this report includes an eGFR for both -Americans and non- Americans. The National Kid[employer] Disease Education Program (NKDEP) does not endorse the use of the MDRD equation for patients that are not between the ages of 18 and 70, are , have extremes of body size, muscle mass, or nutritional status, or are non- or non-. According to the [employer], irrespective of diagnosis, the stage of the disease is based on the level of kidney function: Stage Description GFR(mL/min/1.73 m(2)) 1 Kidney damage with normal or decreased GFR 90 2 Kidney damage with mild decrease in GFR 60-89 3 Moderate decrease in GFR 30-59 4 Severe decrease in GFR 15-29 5 Kidney failure <15 (or dialysis) 13 Desirable: <150 Borderline High: 150-199 High: 200-499 Very High: >500 14 Desirable: <200 Borderline High: 200-239 High: >239 15 Low: <40 Desirable: 40-60 High: >60 16 Desirable: <100 Near Optimal: 100-129 Borderline High: 130-159 High: 160-189 Very High: >189 17 FASTING Copy Result to: ZACKARY BETH ([id number]) 18 Because ethnic data is not always readily available, this report includes an eGFR for both -Americans and non- Americans. The National Kid[employer] Disease Education Program (NKDEP) does not endorse the use of the MDRD equation for patients that are not between the ages of 18 and 70, are , have extremes of body size, muscle mass, or nutritional status, or are non- or non-. According to the [employer], irrespective of diagnosis, the stage of the disease is based on the level of kidney function: Stage Description GFR(mL/min/1.73 m(2)) 1 Kidney damage with normal or decreased GFR 90 2 Kidney damage with mild decrease in GFR 60-89 3 Moderate decrease in GFR 30-59 4 Severe decrease in GFR 15-29 5 Kidney failure <15 (or dialysis) 19 Desirable: <150 Borderline High: 150-199 High: 200-499 Very High: >500 20 Desirable: <200 Borderline High: 200-239 High: >239 21 Low: <40 Desirable: 40-60 High: >60 22 Desirable: <100 Near Optimal: 100-129 Borderline High: 130-159 High: 160-189 Very High: >189 23 Because ethnic data is not always readily available, this report includes an eGFR for both -Americans and non- Americans. The National Kid[employer] Disease Education Program (NKDEP) does not endorse the use of the MDRD equation for patients that are not between the ages of 18 and 70, are , have extremes of body size, muscle mass, or nutritional status, or are non- or non-. According to the [employer], irrespective of diagnosis, the stage of the disease is based on the level of kidney function: Stage Description GFR(mL/min/1.73 m(2)) 1 Kidney damage with normal or decreased GFR 90 2 Kidney damage with mild decrease in GFR 60-89 3 Moderate decrease in GFR 30-59 4 Severe decrease in GFR 15-29 5 Kidney failure <15 (or dialysis) 24 Desirable: <150 Borderline High: 150-199 High: 200-499 Very High: >500 25 Desirable: <200 Borderline High: 200-239 High: >239 26 Low: <40 Desirable: 40-60 High: >60 27 Desirable: <100 Near Optimal: 100-129 Borderline High: 130-159 High: 160-189 Very High: >189 28 Because ethnic data is not always readily available, this report includes an eGFR for both -Americans and non- Americans. The National Kid[employer] Disease Education Program (NKDEP) does not endorse the use of the MDRD equation for patients that are not between the ages of 18 and 70, are , have extremes of body size, muscle mass, or nutritional status, or are non- or non-. According to the [employer], irrespective of diagnosis, the stage of the disease is based on the level of kidney function: Stage Description GFR(mL/min/1.73 m(2)) 1 Kidney damage with normal or decreased GFR 90 2 Kidney damage with mild decrease in GFR 60-89 3 Moderate decrease in GFR 30-59 4 Severe decrease in GFR 15-29 5 Kidney failure <15 (or dialysis) 29 Desirable: <150 Borderline High: 150-199 High: 200-499 Very High: >500 30 Desirable: <200 Borderline High: 200-239 High: >239 31 Low: <40 Desirable: 40-60 High: >60 32 Desirable: <100 Near Optimal: 100-129 Borderline High: 130-159 High: 160-189 Very High: >189 33 Because ethnic data is not always readily available, this report includes an eGFR for both -Americans and non- Americans. The National Kid[employer] Disease Education Program (NKDEP) does not endorse the use of the MDRD equation for patients that are not between the ages of 18 and 70, are , have extremes of body size, muscle mass, or nutritional status, or are non- or non-. According to the [employer], irrespective of diagnosis, the stage of the disease is based on the level of kidney function: Stage Description GFR(mL/min/1.73 m(2)) 1 Kidney damage with normal or decreased GFR 90 2 Kidney damage with mild decrease in GFR 60-89 3 Moderate decrease in GFR 30-59 4 Severe decrease in GFR 15-29 5 Kidney failure <15 (or dialysis) 34 Desirable <150 Borderline high 150-199 High 200-499 Very High >500 35 Desirable <200 Borderline high 200-239 High >239 36 Low <40 Desirable: 40-60 High: >60 37 Desirable: <100 mg/dL Near Optimal: 100-129 mg/dL Borderline High: 130-159 mg/dL High: 160-189 mg/dL Very High: >189 mg/dL 38 Therapeutic target for the treatment of diabetes Mellitus patients is <7% HBA1C, and in selective patients <6.0%.Please refer to [place] [employer] Diabetic care guidelines for further information. 39 FASTING 8 HOUR Fasting prior to 07/24 appt CC: PMD 40 Because ethnic data is not always readily available, this report includes an eGFR for both -Americans and non- Americans. The National Kid[employer] Disease Education Program (NKDEP) does not endorse the use of the MDRD equation for patients that are not between the ages of 18 and 70, are , have extremes of body size, muscle mass, or nutritional status, or are non- or non-. According to the [employer], irrespective of diagnosis, the stage of the disease is based on the level of kidney function: Stage Description GFR(mL/min/1.73 m(2)) 1 Kidney damage with normal or decreased GFR 90 2 Kidney damage with mild decrease in GFR 60-89 3 Moderate decrease in GFR 30-59 4 Severe decrease in GFR 15-29 5 Kidney failure <15 (or dialysis) 41 Desirable <150 Borderline high 150-199 High 200-499 Very High >500 42 Desirable <200 Borderline high 200-239 High >239 43 Low <40 Desirable: 40-60 High: >60 44 Desirable: <100 mg/dL Near Optimal: 100-129 mg/dL Borderline High: 130-159 mg/dL High: 160-189 mg/dL Very High: >189 mg/dL 45 Non-fasting in 2 months 46 Because ethnic data is not always readily available, this report includes an eGFR for both -Americans and non- Americans. The National [employer] Disease Education Program (NKDEP) does not endorse the use of the MDRD equation for patients that are not between the ages of 18 and 70, are , have extremes of body size, muscle mass, or nutritional status, or are non- or non-. According to the [employer], irrespective of diagnosis, the stage of the disease is based on the level of kidney function: Stage Description GFR(mL/min/1.73 m(2)) 1 Kidney damage with normal or decreased GFR 90 2 Kidney damage with mild decrease in GFR 60-89 3 Moderate decrease in GFR 30-59 4 Severe decrease in GFR 15-29 5 Kidney failure <15 (or dialysis) 47 Desirable <150 Borderline high 150-199 High 200-499 Very High >500 48 Desirable <200 Borderline high 200-239 High >239 49 Low <40 Desirable: 40-60 High: >60 50 Desirable: <100 mg/dL Near Optimal: 100-129 mg/dL Borderline High: 130-159 mg/dL High: 160-189 mg/dL Very High: >189 mg/dL 51 Because ethnic data is not always readily available, this report includes an eGFR for both -Americans and non- Americans. The National Kid[employer] Disease Education Program (NKDEP) does not endorse the use of the MDRD equation for patients that are not between the ages of 18 and 70, are , have extremes of body size, muscle mass, or nutritional status, or are non- or non-. According to the [employer], irrespective of diagnosis, the stage of the disease is based on the level of kidney function: Stage Description GFR(mL/min/1.73 m(2)) 1 Kidney damage with normal or decreased GFR 90 2 Kidney damage with mild decrease in GFR 60-89 3 Moderate decrease in GFR 30-59 4 Severe decrease in GFR 15-29 5 Kidney failure <15 (or dialysis) 52 Desirable <150 Borderline high 150-199 High 200-499 Very High >500 53 Desirable <200 Borderline high 200-239 High >239 54 Low <40 Desirable: 40-60 High: >60 55 Desirable: <100 mg/dL Near Optimal: 100-129 mg/dL Borderline High: 130-159 mg/dL High: 160-189 mg/dL Very High: >189 mg/dL 56 non-fasting reevaluation off statin in 4 weeks 57 PT IS FASTING 58 PT IS FASTING 59 Because ethnic data is not always readily available, this report includes an eGFR for both -Americans and non- Americans. The National Kid[employer] Disease Education Program (NKDEP) does not endorse the use of the MDRD equation for patients that are not between the ages of 18 and 70, are , have extremes of body size, muscle mass, or nutritional status, or are non- or non-. According to the [employer], irrespective of diagnosis, the stage of the disease is based on the level of kidney function: Stage Description GFR(mL/min/1.73 m(2)) 1 Kidney damage with normal or decreased GFR 90 2 Kidney damage with mild decrease in GFR 60-89 3 Moderate decrease in GFR 30-59 4 Severe decrease in GFR 15-29 5 Kidney failure <15 (or dialysis) 60 Desirable <150 Borderline high 150-199 High 200-499 Very High >500 61 Desirable <200 Borderline high 200-239 High >239 62 Low <40 Desirable: 40-60 High: >60 63 Desirable: <100 mg/dL Near Optimal: 100-129 mg/dL Borderline High: 130-159 mg/dL High: 160-189 mg/dL Very High: >189 mg/dL 64 Desirable <150 Borderline high 150-199 High 200-499 Very High >500 65 Desirable <200 Borderline high 200-239 High >239 66 Low <40 Desirable: 40-60 High: >60 67 Desirable: <100 mg/dL Near Optimal: 100-129 mg/dL Borderline High: 130-159 mg/dL High: 160-189 mg/dL Very High: >189 mg/dL 68 Because ethnic data is not always readily available, this report includes an eGFR for both -Americans and non- Americans. The National Kid[employer] Disease Education Program (NKDEP) does not endorse the use of the MDRD equation for patients that are not between the ages of 18 and 70, are , have extremes of body size, muscle mass, or nutritional status, or are non- or non-. According to the [employer], irrespective of diagnosis, the stage of the disease is based on the level of kidney function: Stage Description GFR(mL/min/1.73 m(2)) 1 Kidney damage with normal or decreased GFR 90 2 Kidney damage with mild decrease in GFR 60-89 3 Moderate decrease in GFR 30-59 4 Severe decrease in GFR 15-29 5 Kidney failure <15 (or dialysis) 69 Because ethnic data is not always readily available, this report includes an eGFR for both -Americans and non- Americans. The National Kid[employer] Disease Education Program (NKDEP) does not endorse the use of the MDRD equation for patients that are not between the ages of 18 and 70, are , have extremes of body size, muscle mass, or nutritional status, or are non- or non-. According to the [employer], irrespective of diagnosis, the stage of the disease is based on the level of kidney function: Stage Description GFR(mL/min/1.73 m(2)) 1 Kidney damage with normal or decreased GFR 90 2 Kidney damage with mild decrease in GFR 60-89 3 Moderate decrease in GFR 30-59 4 Severe decrease in GFR 15-29 5 Kidney failure <15 (or dialysis) 70 Desirable <150 Borderline high 150-199 High 200-499 Very High >500 71 Desirable <200 Borderline high 200-239 High >239 72 Low <40 Desirable: 40-60 High: >60 73 Desirable: <100 mg/dL Near Optimal: 100-129 mg/dL Borderline High: 130-159 mg/dL High: 160-189 mg/dL Very High: >189 mg/dL 74 fsting cc pmd 75 Reference Range and Interpretation: TnI (ng/mL) Interpretation Less Than 0.03 ng/mL Not supportive of diagnosis of [place] 0.03 - 0.50 ng/mL Indeterminate: suggest serial studies if clinically indicated. Greater than 0.5 ng/mL Consistent with diagnosis of [place] 76 PT IS NOT FASTING 77 PT IS NOT FASTING 78 Because ethnic data is not always readily available, this report includes an eGFR for both -Americans and non- Americans. The National Kid[employer] Disease Education Program (NKDEP) does not endorse the use of the MDRD equation for patients that are not between the ages of 18 and 70, are , have extremes of body size, muscle mass, or nutritional status, or are non- or non-. According to the [employer], irrespective of diagnosis, the stage of the disease is based on the level of kidney function: Stage Description GFR(mL/min/1.73 m(2)) 1 Kidney damage with normal or decreased GFR 90 2 Kidney damage with mild decrease in GFR 60-89 3 Moderate decrease in GFR 30-59 4 Severe decrease in GFR 15-29 5 Kidney failure <15 (or dialysis) 79 Desirable <150 Borderline high 150-199 High 200-499 Very High >500 80 Desirable <200 Borderline high 200-239 High >239 81 Low <40 Desirable: 40-60 High: >60 82 Desirable <100 Near Optimal 100-129 Borderline high 130-159 High 160-189 Very High >189 83 PT IS FASTING 84 PT IS FASTING 85 Because ethnic data is not always readily available, this report includes an eGFR for both -Americans and non- Americans. The National Kid[employer] Disease Education Program (NKDEP) does not endorse the use of the MDRD equation for patients that are not between the ages of 18 and 70, are , have extremes of body size, muscle mass, or nutritional status, or are non- or non-. According to the [employer], irrespective of diagnosis, the stage of the disease is based on the level of kidney function: Stage Description GFR(mL/min/1.73 m(2)) 1 Kidney damage with normal or decreased GFR 90 2 Kidney damage with mild decrease in GFR 60-89 3 Moderate decrease in GFR 30-59 4 Severe decrease in GFR 15-29 5 Kidney failure <15 (or dialysis) 86 Desirable <150 Borderline high 150-199 High 200-499 Very High >500 87 Desirable <200 Borderline high 200-239 High >239 88 Low <40 Desirable: 40-60 High: >60 89 Desirable <100 Near Optimal 100-129 Borderline high 130-159 High 160-189 Very High >189 90 HDL Interpretation: Undesirable: High Risk: Less than 40 mg/dL Desirable: Low Risk: Greater than 60 mg/dL 91 LDL Interpretation: Low Risk Optimal Level: LDL Less than 100 mg/dL Near or Above Optimal: LDL 100-129 mg/dL Borderline High Risk: LDL 130-159 mg/dL High Risk: LDL 160-189 mg/dL Very High Risk: LDL Greater than 189 mg/dL 92 Because ethnic data is not always readily available, this report includes an eGFR for both -Americans and non- Americans. The National Kid[employer] Disease Education Program (NKDEP) does not endorse the use of the MDRD equation for patients that are not between the ages of 18 and 70, are , have extremes of body size, muscle mass, or nutritional status, or are non- or non-. According to the [employer], irrespective of diagnosis, the stage of the disease is based on the level of kidney function: Stage Description GFR(mL/min/1.73 m(2)) 1 Kidney damage with normal or decreased GFR 90 2 Kidney damage with mild decrease in GFR 60-89 3 Moderate decrease in GFR 30-59 4 Severe decrease in GFR 15-29 5 Kidney failure <15 (or dialysis) 93 Because ethnic data is not always readily available, this report includes an eGFR for both -Americans and non- Americans. The National Kid[employer] Disease Education Program (NKDEP) does not endorse the use of the MDRD equation for patients that are not between the ages of 18 and 70, are , have extremes of body size, muscle mass, or nutritional status, or are non- or non-. According to the [employer], irrespective of diagnosis, the stage of the disease is based on the level of kidney function: Stage Description GFR(mL/min/1.73 m(2)) 1 Kidney damage with normal or decreased GFR 90 2 Kidney damage with mild decrease in GFR 60-89 3 Moderate decrease in GFR 30-59 4 Severe decrease in GFR 15-29 5 Kidney failure <15 (or dialysis) 94 CKMB interpretation should be made in conjunction with clinical symptoms, patient history and EKG changes. 95 Reference Range and Interpretation: TnI (ng/mL) Interpretation Less Than 0.06 ng/mL Not supportive of diagnosis of [place] 0.06 - 0.50 ng/mL Indeterminate: suggest serial studies if clinically indicated. Greater than 0.5 ng/mL Consistent with diagnosis of [place] 96 Because ethnic data is not always readily available, this report includes an eGFR for both -Americans and non- Americans. The National Kid[employer] Disease Education Program (NKDEP) does not endorse the use of the MDRD equation for patients that are not between the ages of 18 and 70, are , have extremes of body size, muscle mass, or nutritional status, or are non- or non-. According to the [employer], irrespective of diagnosis, the stage of the disease is based on the level of kidney function: Stage Description GFR(mL/min/1.73 m(2)) 1 Kidney damage with normal or decreased GFR 90 2 Kidney damage with mild decrease in GFR 60-89 3 Moderate decrease in GFR 30-59 4 Severe decrease in GFR 15-29 5 Kidney failure <15 (or dialysis) 97 HDL Interpretation: Undesirable: High Risk: Less than 40 MG/DL Desirable: Low Risk: Greater than 60 MG/DL 98 LDL Interpretation: Low Risk Optimal Level: LDL Less than 100 MG/DL Near or Above Optimal: LDL 100-129 MG/DL Borderline High Risk: LDL 130-159 MG/DL High Risk: LDL 160-189 MG/DL Very High Risk: LDL Greater than 189 MG/DL 99 PT IS FASTING 100 Because ethnic data is not always readily available, this report includes an eGFR for both -Americans and non- Americans. The National Kid[employer] Disease Education Program (NKDEP) does not endorse the use of the MDRD equation for patients that are not between the ages of 18 and 70, are , have extremes of body size, muscle mass, or nutritional status, or are non- or non-. According to the [employer], irrespective of diagnosis, the stage of the disease is based on the level of kidney function: Stage Description GFR(mL/min/1.73 m(2)) 1 Kidney damage with normal or decreased GFR 90 2 Kidney damage with mild decrease in GFR 60-89 3 Moderate decrease in GFR 30-59 4 Severe decrease in GFR 15-29 5 Kidney failure <15 (or dialysis) 101 HDL Interpretation: Undesirable: High Risk: Less than 40 MG/DL Desirable: Low Risk: Greater than 60 MG/DL 102 LDL Interpretation: Low Risk Optimal Level: LDL Less than 100 MG/DL Near or Above Optimal: LDL 100-129 MG/DL Borderline High Risk: LDL 130-159 MG/DL High Risk: LDL 160-189 MG/DL Very High Risk: LDL Greater than 189 MG/DL 103 Anion gap measurement may be of limited value in the presence of any alkalosis, especially in a combined acid base disorder. . 104 A metabolite of Naproxen, O-desmethylnaproxen, has been shown to interfere with the Jendrassik-Flavia method for measuring total bilirubin. Samples from patients who have taken Naproxen have shown spurious elevation in total bilirubin levels. 105 Because ethnic data is not always readily available, this report includes an eGFR for both -Americans and non- Americans. The National Kid[employer] Disease Education Program (NKDEP) does not endorse the use of the MDRD equation for patients that are not between the ages of 18 and 70, are , have extremes of body size, muscle mass, or nutritional status, or are non- or non-. According to the [employer], irrespective of diagnosis, the stage of the disease is based on the level of kidney function: Stage Description GFR(mL/min/1.73 m(2)) 1 Kidney damage with normal or decreased GFR 90 2 Kidney damage with mild decrease in GFR 60-89 3 Moderate decrease in GFR 30-59 4 Severe decrease in GFR 15-29 5 Kidney failure <15 (or dialysis) 106 CHOLESTEROL INTERPRETATION: Desirable: Less than 200 MG/DL Borderline-High Risk: 200-239 MG/DL High-Risk: 240 MG/DL and over 107 HDL INTERPRETATION: Undesirable: High Risk: Less than 40 MG/DL Desirable: Low Risk: Greater than 60 MG/DL 108 LDL INTERPRETATION: Low Risk Optimal Level: LDL Less than 100 MG/DL Near or Above Optimal: LDL 100-129 MG/DL Borderline High Risk: LDL 130-159 MG/DL High Risk: LDL 160-189 MG/DL Very High Risk: LDL Greater than 189 MG/DL 109 Anion gap measurement may be of limited value in the presence of any alkalosis, especially in a combined acid base disorder. . 110 A metabolite of Naproxen, O-desmethylnaproxen, has been shown to interfere with the Jendrassik-Flavia method for measuring total bilirubin. Samples from patients who have taken Naproxen have shown spurious elevation in total bilirubin levels. 111 Because ethnic data is not always readily available, this report includes an eGFR for both -Americans and non- Americans. The National Kid[employer] Disease Education Program (NKDEP) does not endorse the use of the MDRD equation for patients that are not between the ages of 18 and 70, are , have extremes of body size, muscle mass, or nutritional status, or are non- or non-. According to the [employer], irrespective of diagnosis, the stage of the disease is based on the level of kidney function: Stage Description GFR(mL/min/1.73 m(2)) 1 Kidney damage with normal or decreased GFR 90 2 Kidney damage with mild decrease in GFR 60-89 3 Moderate decrease in GFR 30-59 4 Severe decrease in GFR 15-29 5 Kidney failure <15 (or dialysis) 112 CHOLESTEROL INTERPRETATION: Desirable: Less than 200 MG/DL Borderline-High Risk: 200-239 MG/DL High-Risk: 240 MG/DL and over 113 HDL INTERPRETATION: Undesirable: High Risk: Less than 40 MG/DL Desirable: Low Risk: Greater than 60 MG/DL 114 LDL INTERPRETATION: Low Risk Optimal Level: LDL Less than 100 MG/DL Near or Above Optimal: LDL 100-129 MG/DL Borderline High Risk: LDL 130-159 MG/DL High Risk: LDL 160-189 MG/DL Very High Risk: LDL Greater than 189 MG/DL 115 * SERUM LEVELS OF PSA MEASURED USING THE [employer] ACCESS HYBRITECH IMMUNOASSAY SHOULD NOT BE INTERPRETED ABSOLUTE EVIDENCE OF THE PRESENCE OR ABSENCE OF DISEASE. THE PSA VALUE SHOULD BE USED IN CONJUNCTION WITH OTHER PERTINENT CLINICAL DIAGNOSTIC PROCEDURES. The values obtained with different assay methods or kits cannot be used interchangeably. 116 Because ethnic data is not always readily available, this report includes an eGFR for both -Americans and non- Americans. The National Kid[employer] Disease Education Program (NKDEP) does not endorse the use of the MDRD equation for patients that are not between the ages of 18 and 70, are , have extremes of body size, muscle mass, or nutritional status, or are non- or non-. According to the [employer], irrespective of diagnosis, the stage of the disease is based on the level of kidney function: Stage Description GFR(mL/min/1.73 m(2)) 1 Kidney damage with normal or decreased GFR 90 2 Kidney damage with mild decrease in GFR 60-89 3 Moderate decrease in GFR 30-59 4 Severe decrease in GFR 15-29 5 Kidney failure <15 (or dialysis) 117 Anion gap measurement may be of limited value in the presence of any alkalosis, especially in a combined acid base disorder. . 118 A metabolite of Naproxen, O-desmethylnaproxen, has been shown to interfere with the Jendrassik-Flavia method for measuring total bilirubin. Samples from patients who have taken Naproxen have shown spurious elevation in total bilirubin levels. 119 Because ethnic data is not always readily available, this report includes an eGFR for both -Americans and non- Americans. The National Kidney Disease Education Program (NKDEP) does not endorse the use of the MDRD equation for patients that are not between the ages of 18 and 70, are , have extremes of body size, muscle mass, or nutritional status, or are non- or non-. According to the National [employer], irrespective of diagnosis, the stage of the disease is based on the level of kidney function: Stage Description GFR(mL/min/1.73 m(2)) 1 Kidney damage with normal or decreased GFR 90 2 Kidney damage with mild decrease in GFR 60-89 3 Moderate decrease in GFR 30-59 4 Severe decrease in GFR 15-29 5 Kidney failure <15 (or dialysis) 120 CHOLESTEROL INTERPRETATION: Desirable: Less than 200 MG/DL Borderline-High Risk: 200-239 MG/DL High-Risk: 240 MG/DL and over 121 HDL INTERPRETATION: Undesirable: High Risk: Less than 40 MG/DL Desirable: Low Risk: Greater than 60 MG/DL 122 LDL INTERPRETATION: Low Risk Optimal Level: LDL Less than 100 MG/DL Near or Above Optimal: LDL 100-129 MG/DL Borderline High Risk: LDL 130-159 MG/DL High Risk: LDL 160-189 MG/DL Very High Risk: LDL Greater than 189 MG/DL 123 Anion gap measurement may be of limited value in the presence of any alkalosis, especially in a combined acid base disorder. . 124 A metabolite of Naproxen, O-desmethylnaproxen, has been shown to interfere with the Jendrassik-Holmen method for measuring total bilirubin. Samples from patients who have taken Naproxen have shown spurious elevation in total bilirubin levels. 125 Because ethnic data is not always readily available, this report includes an eGFR for both -Americans and non- Americans. The National Kidney Disease Education Program (NKDEP) does not endorse the use of the MDRD equation for patients that are not between the ages of 18 and 70, are , have extremes of body size, muscle mass, or nutritional status, or are non- or non-. According to the National [employer], irrespective of diagnosis, the stage of the disease is based on the level of kidney function: Stage Description GFR(mL/min/1.73 m(2)) 1 Kidney damage with normal or decreased GFR 90 2 Kidney damage with mild decrease in GFR 60-89 3 Moderate decrease in GFR 30-59 4 Severe decrease in GFR 15-29 5 Kidney failure <15 (or dialysis) 126 CHOLESTEROL INTERPRETATION: Desirable: Less than 200 MG/DL Borderline-High Risk: 200-239 MG/DL High-Risk: 240 MG/DL and over 127 HDL INTERPRETATION: Undesirable: High Risk: Less than 40 MG/DL Desirable: Low Risk: Greater than 60 MG/DL 128 LDL INTERPRETATION: Low Risk Optimal Level: LDL Less than 100 MG/DL Near or Above Optimal: LDL 100-129 MG/DL Borderline High Risk: LDL 130-159 MG/DL High Risk: LDL 160-189 MG/DL Very High Risk: LDL Greater than 189 MG/DL 129 Anion gap measurement may be of limited value in the presence of any alkalosis, especially in a combined acid base disorder. . 130 A metabolite of Naproxen, O-desmethylnaproxen, has been shown to interfere with the Jendrassik-Holmen method for measuring total bilirubin. Samples from patients who have taken Naproxen have shown spurious elevation in total bilirubin levels. 131 Because ethnic data is not always readily available, this report includes an eGFR for both -Americans and non- Americans. The National Kidney Disease Education Program (NKDEP) does not endorse the use of the MDRD equation for patients that are not between the ages of 18 and 70, are , have extremes of body size, muscle mass, or nutritional status, or are non- or non-. According to the National [employer], irrespective of diagnosis, the stage of the disease is based on the level of kidney function: Stage Description GFR(mL/min/1.73 m(2)) 1 Kidney damage with normal or decreased GFR 90 2 Kidney damage with mild decrease in GFR 60-89 3 Moderate decrease in GFR 30-59 4 Severe decrease in GFR 15-29 5 Kidney failure <15 (or dialysis) 132 CHOLESTEROL INTERPRETATION: Desirable: Less than 200 MG/DL Borderline-High Risk: 200-239 MG/DL High-Risk: 240 MG/DL and over 133 HDL INTERPRETATION: Undesirable: High Risk: Less than 40 MG/DL Desirable: Low Risk: Greater than 60 MG/DL 134 LDL INTERPRETATION: Low Risk Optimal Level: LDL Less than 100 MG/DL Near or Above Optimal: LDL 100-129 MG/DL Borderline High Risk: LDL 130-159 MG/DL High Risk: LDL 160-189 MG/DL Very High Risk: LDL Greater than 189 MG/DL 135 Anion gap measurement may be of limited value in the presence of any alkalosis, especially in a combined acid base disorder. . 136 A metabolite of Naproxen, O-desmethylnaproxen, has been shown to interfere with the Jendrassik-Flavia method for measuring total bilirubin. Samples from patients who have taken Naproxen have shown spurious elevation in total bilirubin levels. 137 Because ethnic data is not always readily available, this report includes an eGFR for both -Americans and non- Americans. The National Kidney Disease Education Program (NKDEP) does not endorse the use of the MDRD equation for patients that are not between the ages of 18 and 70, are , have extremes of body size, muscle mass, or nutritional status, or are non- or non-. According to the National [employer], irrespective of diagnosis, the stage of the disease is based on the level of kidney function: Stage Description GFR(mL/min/1.73 m(2)) 1 Kidney damage with normal or decreased GFR 90 2 Kidney damage with mild decrease in GFR 60-89 3 Moderate decrease in GFR 30-59 4 Severe decrease in GFR 15-29 5 Kidney failure <15 (or dialysis) 138 CHOLESTEROL INTERPRETATION: Desirable: Less than 200 MG/DL Borderline-High Risk: 200-239 MG/DL High-Risk: 240 MG/DL and over 139 HDL INTERPRETATION: Undesirable: High Risk: Less than 40 MG/DL Desirable: Low Risk: Greater than 60 MG/DL 140 LDL INTERPRETATION: Low Risk Optimal Level: LDL Less than 100 MG/DL Near or Above Optimal: LDL 100-129 MG/DL Borderline High Risk: LDL 130-159 MG/DL High Risk: LDL 160-189 MG/DL Very High Risk: LDL Greater than 189 MG/DL 141 Anion gap measurement may be of limited value in the presence of any alkalosis, especially in a combined acid base disorder. . 142 A metabolite of Naproxen, O-desmethylnaproxen, has been shown to interfere with the Jendrassik-Holmen method for measuring total bilirubin. Samples from patients who have taken Naproxen have shown spurious elevation in total bilirubin levels. 143 Because ethnic data is not always readily available, this report includes an eGFR for both -Americans and non- Americans. The National Kidney Disease Education Program (NKDEP) does not endorse the use of the MDRD equation for patients that are not between the ages of 18 and 70, are , have extremes of body size, muscle mass, or nutritional status, or are non- or non-. According to the National [employer], irrespective of diagnosis, the stage of the disease is based on the level of kidney function: Stage Description GFR(mL/min/1.73 m(2)) 1 Kidney damage with normal or decreased GFR 90 2 Kidney damage with mild decrease in GFR 60-89 3 Moderate decrease in GFR 30-59 4 Severe decrease in GFR 15-29 5 Kidney failure <15 (or dialysis) 144 CHOLESTEROL INTERPRETATION: Desirable: Less than 200 MG/DL Borderline-High Risk: 200-239 MG/DL High-Risk: 240 MG/DL and over 145 HDL INTERPRETATION: Undesirable: High Risk: Less than 40 MG/DL Desirable: Low Risk: Greater than 60 MG/DL 146 LDL INTERPRETATION: Low Risk Optimal Level: LDL Less than 100 MG/DL Near or Above Optimal: LDL 100-129 MG/DL Borderline High Risk: LDL 130-159 MG/DL High Risk: LDL 160-189 MG/DL Very High Risk: LDL Greater than 189 MG/DL 147 Anion gap measurement may be of limited value in the presence of any alkalosis, especially in a combined acid base disorder. . 148 Note change in reference range as of 06/27/08. The change was based on recommendations from the [place] [employer]. 149 Please note change in reference range effective 08 . 150 A metabolite of Naproxen, O-desmethylnaproxen, has been shown to interfere with the Jendrassik-Flavia method for measuring total bilirubin. Samples from patients who have taken Naproxen have shown spurious elevation in total bilirubin levels. 151 Because ethnic data is not always readily available, this report includes an eGFR for both -Americans and non- Americans. The National Kidney Disease Education Program (NKDEP) does not endorse the use of the MDRD equation for patients that are not between the ages of 18 and 70, are , have extremes of body size, muscle mass, or nutritional status, or are non- or non-. According to the National [employer], irrespective of diagnosis, the stage of the disease is based on the level of kidney function: Stage Description GFR(mL/min/1.73 m(2)) 1 Kidney damage with normal or decreased GFR 90 2 Kidney damage with mild decrease in GFR 60-89 3 Moderate decrease in GFR 30-59 4 Severe decrease in GFR 15-29 5 Kidney failure <15 (or dialysis) 152 CHOLESTEROL INTERPRETATION: Desirable: Less than 200 MG/DL Borderline-High Risk: 200-239 MG/DL High-Risk: 240 MG/DL and over 153 HDL INTERPRETATION: Undesirable: High Risk: Less than 40 MG/DL Desirable: Low Risk: Greater than 60 MG/DL 154 LDL INTERPRETATION: Low Risk Optimal Level: LDL Less than 100 MG/DL Near or Above Optimal: LDL 100-129 MG/DL Borderline High Risk: LDL 130-159 MG/DL High Risk: LDL 160-189 MG/DL Very High Risk: LDL Greater than 189 MG/DL 155 Anion gap measurement may be of limited value in the presence of any alkalosis, especially in a combined acid base disorder. . 156 Note change in reference range as of 06/27/08. The change was based on recommendations from the [place] [employer]. 157 Please note change in reference range effective 08 . 158 A metabolite of Naproxen, O-desmethylnaproxen, has been shown to interfere with the Jendrassik-Holmen method for measuring total bilirubin. Samples from patients who have taken Naproxen have shown spurious elevation in total bilirubin levels. 159 CHOLESTEROL INTERPRETATION: Desirable: Less than 200 MG/DL Borderline-High Risk: 200-239 MG/DL High-Risk: 240 MG/DL and over 160 HDL INTERPRETATION: Undesirable: High Risk: Less than 40 MG/DL Desirable: Low Risk: Greater than 60 MG/DL 161 LDL INTERPRETATION: Low Risk Optimal Level: LDL Less than 100 MG/DL Near or Above Optimal: LDL 100-129 MG/DL Borderline High Risk: LDL 130-159 MG/DL High Risk: LDL 160-189 MG/DL Very High Risk: LDL Greater than 189 MG/DL Procedures Date Code Description Status 04/10/2019 25373 EKG Tracing & Interpretation Completed 09/05/2018 66242 EKG Tracing & Interpretation Completed 08/01/2018 41898 Treadmill Interp/Report Only Completed 08/01/2018 07045 Stress Test Supervsn W/Out I/R Completed 03/28/2018 16959 EKG Tracing & Interpretation Completed 12/28/2017 39117 Treadmill Interp/Report Only Completed 12/28/2017 46602 Stress Test Supervsn W/Out I/R Completed 12/28/2017 46116 EKG, Interpretation Only Completed 07/13/2017 12996 EKG Tracing & Interpretation Completed 07/20/2016 32541 EKG Tracing & Interpretation Completed 08/07/2015 38979 EKG Tracing & Interpretation Completed 09/09/2014 45102 EKG Tracing & Interpretation Completed 02/27/2014 33293 Treadmill Interp/Report Only Completed 02/27/2014 75197 Stress Test Supervsn W/Out I/R Completed 02/05/2014 94543 EKG Tracing & Interpretation Completed 08/02/2013 56509 EKG Tracing & Interpretation Completed 04/10/2013 54820 Treadmill Interp/Report Only Completed 04/10/2013 48620 Stress Test Supervsn W/Out I/R Completed 04/09/2013 80874 EKG, Interpretation Only Completed 02/22/2013 76533 ECHO Transthoracic, Real-Time 2D With Doppler And Color Completed Flow 01/25/2013 90186 EKG Tracing & Interpretation Completed 07/10/2012 82676 Treadmill Interp/Report Only Completed 07/10/2012 53366 Stress Test Supervsn W/Out I/R Completed 02/21/2012 50124 ECHO Stress Test Incl Perf Contiuous ekg Monitoring W/Phys Completed Superv 01/26/2012 86849 EKG Tracing & Interpretation Completed 02/11/2011 10917 EKG Tracing & Interpretation Completed 02/04/2010 85501 ECHO Stress Test Incl Perf Contiuous ekg Monitoring W/Phys Completed Superv 12/10/2009 70853 EKG Tracing & Interpretation Completed 02/19/2009 14266 EKG Tracing & Interpretation Completed 09/12/2008 40301 EKG Tracing & Interpretation Completed 08/12/2008 45594 EKG Tracing & Interpretation Completed 02/07/2008 55374 EKG Tracing & Interpretation Completed 07/25/2007 68316 EKG Tracing & Interpretation Completed 04/05/2007 13975 ECHO/Stress Completed 04/05/2007 66356 ECHO/Stress Completed 04/05/2007 95284 Stress Test Completed 02/21/2007 00790 Treadmill Interp/Report Only Completed 02/21/2007 31243 Stress Test Supervsn W/Out I/R Completed 02/21/2007 94688 Stress Test Supervsn W/Out I/R Completed Encounters Type Date Location Provider Dx Diagnosis Office Visit 11/21/2018 [facility] Kala Reyes, 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D. unspecified I25.10 Athscl heart disease of [place] coronary artery w/o ang pctrs Office Visit 07/31/2018 [facility] Rosalee Nelson R07.9 Chest pain, 10:59a Assoc,katya Durant NP unspecified Hospitalists R53.83 Other fatigue R79.89 Other specified abnormal findings of blood chemistry Office Visit 06/02/2018 9:30a [facility] Kala Walters I25.118 Athscl heart Of [facility] Eric N.P. disease of [place] cor art w oth ang pctrs E78.5 Hyperlipidemia, unspecified I10 Essential (primary) hypertension E78.4 Other hyperlipidemia Office Visit 04/28/2018 10:00a [facility] Kala Walters I25.118 Athscl heart Of [facility] Eric N.P. disease of [place] cor art w oth ang pctrs E78.5 Hyperlipidemia, unspecified I10 Essential (primary) hypertension Office Visit 03/28/2018 1:20p [facility] Kristopher Alonzo I25.118 Athscl heart Of [facility] Nasra Gaspar disease of [place] cor art w oth ang pctrs E78.5 Hyperlipidemia, unspecified I10 Essential (primary) hypertension Office Visit 12/28/2017 [facility] Rosalee Nelson R07.9 Chest pain, 10:17a Assoc,katya Durant NP unspecified Hospitalists I25.118 Athscl heart disease of [place] cor art w oth ang pctrs E78.5 Hyperlipidemia, unspecified Office Visit 12/27/2017 10:16a [facility] Beth R07.9 Chest pain, Assoc,Zhang ZapienO. unspecified Hospitalists I25.118 Athscl heart disease of [place] cor art w oth ang pctrs E78.5 Hyperlipidemia, unspecified Office Visit 09/13/2017 9:00a [facility] Ema Cloud, E78.4 Other hyperlipidemia Of [facility] PA I10 Essential (primary) hypertension I25.10 Athscl heart disease of [place] coronary artery w/o ang pctrs Office Visit 07/13/2017 1:30p [facility] I25.10 [facility] Nas[place]par disease of [place] coronary artery w/o ang pctrs I10 Essential (primary) hypertension E78.4 Other hyperlipidemia I44.0 Atrioventricular block, first degree Office Visit 08/09/2016 10:00a [facility] ROWAN Diego I25.10 Athscl heart disease of [place] coronary artery w/o ang pctrs I10 Essential (primary) hypertension E78.4 Other hyperlipidemia Office Visit 07/20/2016 9:20a [facility] Krisotpher Alonzo I25.10 Khurram Gaspar M.D. disease of [place] coronary artery w/o ang pctrs E78.4 Other hyperlipidemia I10 Essential (primary) hypertension Office Visit 12/16/2015 9:55a [facility] Lucía Boles, R42 Dizziness and MD cavazos R26.0 Ataxic gait R51 Headache Office Visit 08/07/2015 3:20p [facility] Kristopher Alonzo I25.10 Khurram heart Nas[place] Gaspar disease of [place] coronary artery w/o ang pctrs R07.9 Chest pain, unspecified E78.4 Other hyperlipidemia I10 Essential (primary) hypertension Office Visit 01/17/2015 [facility] Toby 414.00 Coronary 12:06p Assoc,katya Castellon M.D. Atherosclerosis Hospitalists Unspec Type Vessel [place]/Graft 786.50 Pain Chest Unspec 272.4 Hyperlipidemia Other Unspec 401.9 Hypertension Unspec Office Visit 01/16/2015 [facility] Leslye Fam, 414.01 Coronary 3:22p Ashley Atherosclerosis Head Operator Sulfide [place] 786.50 Pain Chest Unspec Office Visit 01/16/2015 12:05p [facility] Vikas Alejandro, 786.50 Pain Chest Assoc,pc N.P. Unspec Hospitalists 414.00 Coronary Atherosclerosis Unspec Type Vessel [place]/Graft 272.4 Hyperlipidemia Other Unspec 401.9 Hypertension Unspec Office Visit 09/09/2014 Kori Alonzo 414.01 Coronary 1:40p Yoli Gaspar M.D. Atherosclerosis [place] 272.2 Hyperlipidemia Mixed 794.31 Electrocardiogram (ECG) (EKG) Abnormal 786.51 Pain Precordial 401.9 Hypertension Unspec Office Visit 02/05/2014 Kori Alonzo 414.01 Coronary 2:00p Yoli Gaspar M.D. Atherosclerosis [place] 272.2 Hyperlipidemia Mixed 786.50 Pain Chest Unspec 794.31 Electrocardiogram (ECG) (EKG) Abnormal Office Visit 08/02/2013 Kori Alonzo 272.2 Hyperlipidemia Mixed 9:00a Yoli Gaspar M.D. 414.01 Coronary Atherosclerosis [place] Office Visit 04/10/2013 3:16p [facility] Kristopher Alonzo 786.50 Pain Chest Nasra Gaspar Unspec 401.1 Hypertension Benign 272.0 Hypercholesterolemia Pure Office Visit 04/10/2013 2:23p [facility] Beth 786.51 Pain Precordial Assoc,pc Luis Gaona Hospitalists 401.9 Hypertension Unspec 272.2 Hyperlipidemia Mixed Office Visit 04/09/2013 2:22p [facility] Beth 786.51 Pain Precordial Assoc,pc Luis Gaona Hospitalists 401.9 Hypertension Unspec 272.2 Hyperlipidemia Mixed Office Visit 01/25/2013 Kori Alonzo 414.01 Coronary 8:40a Yoli Gaspar M.D. Atherosclerosis [place] 401.1 Hypertension Benign 272.0 Hypercholesterolemia Pure 794.31 Electrocardiogram (ECG) (EKG) Abnormal Office Visit 02/21/2012 Kori Alonzo 414.01 Coronary 8:30a Yoli Gaspar M.D. Atherosclerosis [place] 272.0 Hypercholesterolemia Pure 401.1 Hypertension Benign Office Visit 01/26/2012 Kori Alonzo 414.01 Coronary 11:20a Yoli Gaspar M.D. Atherosclerosis [place] 272.0 Hypercholesterolemia Pure 401.1 Hypertension Benign Office Visit 02/11/2011 [facility] Kristopher Alonzo 414.01 Coronary 10:20a Cardiology Nasra Gaspar Atherosclerosis [place] 401.1 Hypertension Benign 414.8 Ischemic Heart Disease Chronic Other Spec Forms Office Visit 12/10/2009 2:20p [facility] Kristopher Alonzo 401.1 Hypertension Nasra Gaspar Benign 414.01 Coronary Atherosclerosis [place] 272.0 Hypercholesterolemia Pure Office Visit 02/19/2009 2:40p [facility] Kristopher Alonzo 401.1 Hypertension Nasra Gaspar Benign 414.01 Coronary Atherosclerosis [place] 272.0 Hypercholesterolemia Pure Office Visit 09/12/2008 10:00a [facility] Kristopher Alonzo 401.1 Hypertension Nasra Gaspar Benign 414.01 Coronary Atherosclerosis [place] 272.0 Hypercholesterolemia Pure Office Visit 08/12/2008 2:00p [facility] Kristopher Alonzo 401.1 José Miguel Gaspar M.D. Benign 272.0 Hypercholesterolemia Pure 414.01 Coronary Atherosclerosis [place] Office Visit 02/07/2008 [facility] Kristopher Alonzo 414.01 Coronary 9:00a Yoli Gaspar M.D. Atherosclerosis [place] 401.1 Hypertension Benign 272.0 Hypercholesterolemia Pure Office Visit 07/25/2007 [facility] Kristopher Alonzo 414.01 Coronary 9:40a Yoli Gaspar M.D. Atherosclerosis [place] 401.1 Hypertension Benign 272.0 Hypercholesterolemia Pure Office Visit 03/20/2007 [facility] Kristopher Alonzo 414.01 Coronary 10:00a Yoli Gaspar M.D. 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
[2019-04-23] MEDS ORDERED: Aspirin 81 mg CHEW TAB* 81 MG TAB.CHEW PO ONE (23:59)
--- NOTE | 2019-04-24 00:08 | ED ---
HPI Chest Pain - HPI Summary HPI Summary: This patient is a 78 year old M presenting to [facility] accompanied by with a chief complaint of chest pain that has persisted for a couple weeks. Pt describes chest pain as pressure diffuse across chest, and radiates to back. On 04/23/19, while patient was mowing the lawn he experienced an episode of chest pain. Pain during episode is described as severe. Pt sat down and rested and experienced lessening of chest pain. He estimates episode lasted around 10 minutes. Pt currently is not in much pain. The patient rates the pain 3/10 in severity. Pt denies any nausea, vomiting and difficulty breathing. Pt does take aspirin daily, however he did not take it on 04/23/19. He has a PSHx of three stents. Pt ms sql dba is Kristopher Gaspar MD. - History of Current Complaint Chief Complaint: EDChestPainROMI Time Seen by Provider: 04/23/19 23:40 Hx Obtained From: Patient Onset/Duration: Started Hours Ago - aggrevated symptoms occured today, Started Weeks Ago, Still Present Timing: Intermittent, Lasting Minutes - Pt reports episode 04/23/19 lasted 10 minutes Initial Severity: Severe Current Severity: Mild Pain Intensity: 3 Pain Scale Used: 0-10 Numeric Chest Pain Location: Diffuse Chest Pain Radiates: Yes Chest Pain Radiates To:: Back Character: Pressure/Squeezing Aggravating Factor(s): Exertion Alleviating Factor(s): Rest Associated Signs and Symptoms: Negative: Shortness of Breath, Nausea, Vomiting - Additional Pertinent History Primary Care Physician: THEE - Allergy/Home Medications Allergies/Adverse Reactions: Allergies Allergy/AdvReac Type Severity Reaction Status Date / Time No Known Allergies Allergy Verified 04/24/19 00:04 Home Medications: Home Medications Ezetimibe 10 mg PO DAILY 04/24/19 [History Confirmed 04/24/19] PMH/Surg Hx/FS Hx/Imm Hx Endocrine/Hematology History: Denies: Hx Diabetes Cardiovascular History: Reports: Hx Angina, Hx Coronary Artery Disease, Hx Hypercholesterolemia, Hx Hypertension, Other Cardiovascular Problems/Disorders - Stents placed 2006 and 2007 Denies: Hx Myocardial Infarction, Hx Pacemaker/ICD Respiratory History: Reports: Other Respiratory Problems/Disorders - PNA ONE YR AGO Denies: Hx Asthma History: Denies: Hx Dialysis, Hx Renal Disease Sensory History: Reports: Hx Contacts or Glasses Denies: Hx Hearing Aid Opthamlomology History: Reports: Hx Contacts or Glasses Psychiatric History: Denies: Hx Panic Disorder - Cancer History Cancer Type, Location and Year: "spot on my lungs" may 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 - Surgical History Surgery Procedure, Year, and Place: appendectomy, tonsilectomy, cardiac stents placed 2006 and 2007. 2-XIENCE V STENT SAFE TO 3T. 1-CORDIS CYPHER STENT SAFE TO 3T. STENT CARDS SCANNED INTO [employer] Hx Anesthesia Reactions: No - Immunization History Date of Tetanus Vaccine: unsure Date of Influenza Vaccine: 2012 Infectious Disease History: No Infectious Disease History: Reports: Hx Shingles Denies: History Other Infectious Disease, Traveled Outside the [place] in Last 30 Days - Family History Known Family History: Positive: Cardiac Disease - Father of heart attack Negative: Hypertension - Social History Alcohol Use: Rare Alcohol Amount: a glass a wine or beer every now and then Substance Use Type: Reports: None Smoking Status (MU): Former Smoker Have You Smoked in the Last Year: No Review of Systems Positive: Chest Pain Negative: Shortness Of Breath Negative: Vomiting, Nausea Positive: Other - positive: back pain All Other Systems Reviewed And Are Negative: Yes Physical Exam - Summary Physical Exam Summary: VITAL SIGNS: Reviewed. GENERAL: Patient is a well-developed and nourished MALE who is lying comfortable in the stretcher. Patient is not in any acute respiratory distress. HEAD AND FACE: No signs of trauma. No ecchymosis, hematomas or skull depressions. No sinus tenderness. EYES: PERRLA, EOMI x 2, No injected conjunctiva, no nystagmus. EARS: Hearing grossly intact. Ear canals and tympanic membranes are within normal limits. MOUTH: Oropharynx within normal limits. NECK: Supple, trachea is midline, no adenopathy, no JVD, no carotid bruit, no c- spine tenderness, neck with full ROM CHEST: Symmetric, no tenderness at palpation LUNGS: Clear to auscultation bilaterally. No wheezing or crackles. CVS: Regular rate and rhythm, S1 and S2 present, no murmurs or gallops appreciated. ABDOMEN: Soft, non-tender. No signs of distention. No rebound no guarding, and no masses palpated. Bowel sounds are normal. EXTREMITIES: FROM in all major joints, no edema, no cyanosis or clubbing. NEURO: Alert and oriented x 3. No acute neurological deficits. Speech is normal and follows commands. SKIN: Dry and warm Triage Information Reviewed: Yes Vital Signs On Initial Exam: Initial Vitals Temp Pulse Resp BP Pulse Ox 99.4 F 85 18 162/104 98 04/23/19 19:27 04/23/19 19:27 04/23/19 19:27 04/23/19 19:27 04/23/19 19:27 Vital Signs Reviewed: Yes Diagnostics - Vital Signs Vital Signs Temp Pulse Resp BP Pulse Ox 04/23/19 23:27 98.4 F 60 18 145/87 99 04/23/19 19:27 99.4 F 85 18 162/104 98 - Laboratory Lab Statement: Any lab studies that have been ordered have been reviewed, and results considered in the medical decision making process. - Radiology CXR Radiology Interpretation Completed By: ED Physician Summary of Radiographic Findings: No acute processes, pending offcial report. - EKG 1937 Cardiac Rate: NL - Rate 76 BPM EKG Rhythm: Sinus Rhythm Summary of EKG Findings: EKG showed sinus rhythm with rate of 76 BPM, normal axis, normal interval, no ischemic changes. 0012 Cardiac Rate: NL - Rate 60 BPM EKG Rhythm: Sinus Rhythm Summary of EKG Findings: EKG showed sinus rhythm with rate of 60 BPM, normal axis, normal interval, no ischemic changes. Re-Evaluation - Re-Evaluation First Eval Re-Evaluation Time: 00:57 Comment: Discussed with pt about plan to admit. Pt is agreeable with admission. Chest Pain Course/Dx - Course Course Of Treatment: This patient is a 78 year old M presenting to [facility] accompanied by with a chief complaint of chest pain that has persisted for a couple weeks. Pt describes chest pain as pressure diffuse across chest, and radiates to back. On 04/23/19, while patient was mowing the lawn he experienced an episode of chest pain. Pain during episode is described as severe. Pt sat down and rested and experienced lessening of chest pain. He estimates episode lasted around 10 minutes. Pt currently is not in much pain. The patient rates the pain 3/10 in severity. Pt denies any nausea, vomiting and difficulty breathing. Pt does take aspirin daily, however he did not take it on 04/23/19. He has a PSHx of three stents. Pt ms sql dba is Kristopher Gaspar MD.Normal physical exam. One EKG reveals sinus rhythm with rate of 76 BPM, normal axis, normal interval, no ischemic changes. Second EKG reveals sinus rhythm with rate of 60 BPM, normal axis, normal interval, no ischemic changes. In the ED course the patient was given Aspirin, 324 mg. PO CXR reveals no acute process. Blood work obtained. The abnormal values include BUN/Creatinine Ratio 22.3, Glucose 101, Total Bilirubin 1.10, AST 40. Discussed with pt about plan to admit. Pt is agreeable. Spoke with Dr. Dickson about admission. Dr. Dickson accepts for admission. - Diagnoses Provider Diagnoses: Chest pain - Provider Notifications Discussed Care Of Patient With: Mary Dickson Time Discussed With Above Provider: 01:25 Instructed by Provider To: Other - Patient's case was discussed with Dr Dickson. Dr Dickson accepts for admission. Discharge - Sign-Out/Discharge Documenting (check all that apply): Patient Departure - Admission - Discharge Plan Condition: Stable Disposition: ADMITTED TO [facility] Patient Education Materials: Chest Pain (ED) Referrals: Zackary Wallis MD [Primary Care Provider] - - Attestation Statements Document Initiated by Scribe: Yes Documenting Scribe: JOSETTE MON Provider For Whom Jose Enrique is Documenting (Include Credential): JAIDEN MENDOZA MD Scribe Attestation: JOSETTE Weiner, scribed for JAIDEN MENDOZA MD on 04/24/19 at 0210. Status of Scribe Document: Ready
[2019-04-24 00:36] LABS: ABS Basophils 0.1 10^3/ul (0-0.2); ABS Eosinophils 0.1 10^3/ul (0-0.6); ABS Lymphocytes 2.2 10^3/ul (1.0-4.8); ABS Monocytes 0.8 10^3/ul (0-0.8); ABS Neutrophils 3.1 10^3/ul (1.5-7.7); Hematocrit 43 % (42-52); Hemoglobin 14.4 g/dL (14.0-18.0); Lymphocyte % 35.1 %; Mean Corpuscular HGB Conc 34 g/dL (31-36); Mean Corpuscular Hemoglobin 29 pg (27-31); Mean Corpuscular Volume 86 fL (80-94); Mean Platelet Volume 8.1 fL (7.4-10.4); Nucleated Red Blood Cells % 0.1; Platelet Count 152 10^3/uL (150-450); Red Blood Count 4.94 10^6 /uL (4.18-5.48); Red Cell Distribution Width 13 % (10-15); White Blood Count 6.3 10^3/uL (3.5-10.8)
[2019-04-24 00:47] LABS: Activated Partial Thrombo Time 35.7 seconds (26.0-38.0); INR 1.09 (0.82-1.09)
[2019-04-24 00:51] LABS: Albumin 4.5 g/dL (3.2-5.2); Albumin/Globulin Ratio 1.6 (1-3); BUN/Creatinine Ratio 22.3 (8-20); Calcium 9.8 mg/dL (8.6-10.3); EGFR African American 84.3 (>60); EGFR Non-African American 69.7 (>60); Globulin 2.8 g/dL (2-4); Magnesium 2.3 mg/dL (1.9-2.7); Potassium 3.9 mmol/L (3.5-5.0); Total Bilirubin 1.1 mg/dL (0.2-1.0); Total Protein 7.3 g/dL (6.4-8.9)
[2019-04-24 00:52] LABS: Troponin I 0.02 ng/mL (<0.04)
[2019-04-24 02:22] LABS: HDL Cholesterol 44.5 mg/dL
[2019-04-24] MEDS ORDERED: Enoxaparin(*) 40 MG/0.4 ML SYR SUBCUT SCH (02:30)
--- NOTE | 2019-04-24 04:08 | HP ---
HISTORY AND PHYSICAL: DATE OF ADMISSION: 04/24/19 PRIMARY CARE PROVIDER: Zackary Wallis MD. PRIMARY INFORMATION WRITER: Kristopher Gaspar MD. MANAGER BENCH: Nikos Ceballos, patient's son. CODE STATUS: Full. SOURCE OF INFORMATION: HPI is obtained from patient and review of chart, she is a fair historian. CHIEF COMPLAINT: Chest pain. HISTORY OF PRESENT ILLNESS: This is a 78-year-old male with a past medical history significant for coronary artery disease, status post PCI in the past, hyperlipidemia, hypertension, BPH, lung nodule and a chronically elevated CK, who presented to the emergency room with 1 day of chest pain. The patient reports that he was doing yard work and developed substernal chest pain that radiates across his chest also described as a pressure. No associated shortness of breath, nausea, vomiting, neck pain or dizziness, and once he stopped doing yard work, the pain subsided. Because of his cardiac history, he decided to present to the emergency room. Of note, he did have 2 negative stress tests, one in December of 2017 showing low risk and also one in July of 2018. He follows with his yarn mercerizer operator regularly. EMERGENCY ROOM COURSE: His blood pressure is 162/104, temperature is 99.4, pulse 85, respiratory rate is 18, oxygen saturation 98% on room air. He had an EKG done, which showed sinus rhythm with no acute ischemia. Labs were done, which were largely unremarkable with the exception of mildly elevated AST and elevated total bilirubin, which is chronic. He had a chest x-ray performed, which shows no acute cardiopulmonary disease. Because of his cardiac history being high risk and very convincing story for angina, the hospitalist team was asked to evaluate and admit the patient for rule out ACS. PAST MEDICAL HISTORY: Coronary artery disease, status post x3 PCI, hyperlipidemia, BPH, lung nodule under surveillance, hypertension, chronically elevated CK. PAST SURGICAL HISTORY: Status post appendectomy, status post tonsillectomy, status post cardiac stent to circumflex in 2006. MEDICATIONS: 1. Rosuvastatin 10 mg p.o. q.p.m. 2. Aspirin 81 mg p.o. daily. 3. Atenolol 12.5 mg p.o. daily. 5. Ezetimibe 10 mg p.o. daily. 6. Lisinopril 20 mg p.o. daily. 7. PreserVision AREDS 2 softgels 1 cap p.o. b.i.d. ALLERGIES: No known drug allergies. FAMILY HISTORY: Father is at age 60 from myocardial infarction. Mother with breast cancer. SOCIAL HISTORY: The patient is a retired. Tobacco use: 69-genf-fiwi history and quit greater than 15 years ago. Alcohol: Social drinker. Illicits: Denies. Career: [employer] and lives with his . He is a lifetime nontobacco user. He is a social alcohol drinker with 7 drinks per week and no history of illicits. REVIEW OF SYSTEMS: Constitutional: Negative for fevers or chills. Positive for minor fatigue. HEENT: Negative for vision changes, headache, or sore throat. Cardiovascular: Positive for chest pain. Negative for palpitations or orthopnea. Respiratory: Negative for shortness of breath, cough, or pleuritic chest pain. GI: Negative for nausea, vomiting, diarrhea, or abdominal pain. : Negative for dysuria or hematuria. Musculoskeletal: Negative for myalgias, arthralgias, or weakness. Skin: Negative for rashes or lesions. Neurologic: Negative for focal weakness or numbness. Psychiatric: Negative for depression or anxiety. Endocrine: Negative for polyuria or polydipsia. Heme: Negative for easy bruising, bleeding, or lymphadenopathy. PHYSICAL EXAMINATION GENERAL APPEARANCE: This is a well-appearing man in no acute distress. VITAL SIGNS: At the time of physical exam, blood pressure is 145/87, temp 98.4 , respiratory rate 18, pulse 60, oxygen saturation 99% on room air. HEENT: Pupils are equal and reactive to light. Extraocular muscles are intact. Sclerae are anicteric. Mouth with moist mucous membranes. RESPIRATORY: Lungs are clear to auscultation bilaterally. CARDIOVASCULAR: Regular rate and rhythm with no murmurs, rubs, or gallops. ABDOMEN: Soft, nontender, nondistended with normoactive bowel sounds. MUSCULOSKELETAL: He moves all 4 extremities spontaneously without pain, and good strength. EXTREMITIES: There is no lower extremity edema. DP pulses in rosy extremities are 2+ and symmetric. NEUROLOGIC: Cranial nerves II through XII are grossly intact. The patient is alert and oriented x4. SKIN: There are no rashes or lesions. DIAGNOSTIC STUDIES/LAB DATA: CBC with white blood cell count of 6.3, hemoglobin 14.4, hematocrit 43, platelets 152. CMP with sodium 141, potassium 3.9, chloride 105, carbon dioxide 29, creatinine 1.03, glucose 101, AST 40, total bilirubin 1.1. EKG shows normal sinus rhythm with no acute ischemia, similar to prior from July of 2018. Chest x-ray with no acute cardiopulmonary process. Imaging, EKG, and labs reviewed by myself. ASSESSMENT AND PLAN: This is a 78-year-old male with past medical history of coronary artery disease, hyperlipidemia, hypertension, lung nodule on surveillance, who presented to the emergency room with exertional chest pain. Normal labs, troponin and EKG. Differential for this includes stable angina, unstable angina, and non cardiac causes of pain . The patient will be admitted for rule out acute coronary syndrome given a significant cardiac history. 1. Chest pain. We will admit the patient for observation and trend troponin x3. The patient is currently chest pain-free. He has had 2 stress tests, so I am unsure of the utility of a third one, although I think it is reasonable to touch base with Cariology to see if the patient would benefit from any other interventions. I will order for stress test, although reasonable to discuss case with Cardiology in the morning. He has MARYANN score of 4. 2. Coronary artery disease. Optimized on beta-torrie, aspirin, and statin. 3. Hyperlipidemia. Continue on atorvastatin as Crestor is non-formulary. Fasting labs were normal in July of 2018, he has some concern for elevated cholesterol and tells me Dr. Gaspar has said they have been elevated as late as Spring 2018, will repeat here because of this history. 4. Elevated total bilirubin. This appears to be at baseline, chronically elevated. Lung nodule is on surveillance. 6. FEN. NPO for possible stress test, otherwise heart-healthy diet. 7. Code status is full. 8. DVT prophylaxis. Place the patient on Lovenox. 9. Disposition. Stable for admission to observation status under cardiac care floor. TIME SPENT: Thirty minutes was spent in the planning of this admission with over half of that spent directly at the bedside with the patient providing direct patient care. Plan of care was discussed with patient, who agrees and has no further questions. [id number]/[facility] #: [id number] PIL[facility] PSYCHIATRIC CENTERArely
[2019-04-24 07:56] VITALS: BP 136/69
[2019-04-24] MEDS ORDERED: Lisinopril TAB* 10 MG PO SCH (09:00)
[2019-04-24] MEDS ORDERED: Ezetimibe TAB* 10 MG PO SCH (09:00)
[2019-04-24] MEDS ORDERED: Atenolol TAB* 25 MG PO SCH (09:00)
[2019-04-24] MEDS ORDERED: Multivitamins/Mins (NF) AREDS2 1 CAP CAP PO SCH (09:00)
[2019-04-24] MEDS ORDERED: Regadenoson* 0.4 MG/5 ML SYRINGE ONE (09:42)
[2019-04-24] MEDS ORDERED: Aminophylline IV* 25 MG/ML 10 ML VIAL ONE (09:42)
[2019-04-24] MEDS ORDERED: Aspirin 81 mg CHEW TAB* 81 MG TAB.CHEW PO SCH (18:00)
[2019-04-24] MEDS ORDERED: Atorvastatin* 80 MG TAB PO ONE (21:00)
--- NOTE | 2019-04-24 21:28 | DS ---
CC: Dr. Gaspar; Dr. Wallis* DISCHARGE SUMMARY: DATE OF ADMISSION: 04/24/19 DATE OF DISCHARGE: 04/24/19 PRIMARY CARE PROVIDER: Dr. Wallis. MANUFACTURING MECHANIC: Dr. Gaspar. PRINCIPAL DIAGNOSIS: Noncardiac chest pain. SECONDARY DIAGNOSES: 1. Coronary artery disease. 2. Hyperlipidemia. 3. Benign prostatic hypertrophy. 4. Lung nodule, under surveillance. 5. Hypertension. DISCHARGE MEDICATIONS: 1. PreserVision AREDS 2 one cap p.o. b.i.d. 2. Crestor 10 mg p.o. q.h.s. 3. Lisinopril 20 mg p.o. daily. 4. Zetia 10 mg p.o. daily. 5. Atenolol 12.5 mg p.o. daily. 6. Aspirin 81 mg p.o. daily. HOSPITAL COURSE: Mr. Ceballos is a 78-year-old male with a known history of coronary artery disease, status post PCI x3, who presents to the emergency room with complaints of chest pain. The patient had been doing yard work when he developed substernal chest pain that radiated across his chest. He described this as a pressure. He had no associated shortness of breath, nausea, vomiting , or dizziness. Once he stopped doing the yard work, the pain subsided. He presented to the emergency room for evaluation. The patient was ruled out with serial troponins. His EKG did not reveal any acute ST-T wave abnormalities and was essentially unchanged from prior. He underwent an exercise nuclear stress test. The EKG portion was negative for signs of ischemia. He was found to have a stable fixed defect at the inferior wall. According to old stress test reports, this is present since 2014. The patient did have an episode of chest pain while on the treadmill; however, as he kept walking, the chest discomfort went away. It was very transient in nature and felt to be atypical. The patient did have a hypertensive response to stress. At rest, his blood pressures had been in the 130s to low 140s range. Perhaps further evaluation with an antihypertensive regimen could be made as an outpatient. At this time, however, it is felt that the patient is stable for discharge home. PHYSICAL EXAMINATION: On the day of discharge, the patient is awake, alert, and oriented, sitting up in bed, in no acute distress. Cardiac exam reveals normal a S1, S2 with a regular rate and rhythm. His lungs are clear. His abdomen is soft, nontender, nondistended. He moves all 4 extremities symmetrically. FOLLOWUP CONCERNS: The patient is being discharged home today, 04/24/19. ACTIVITY LEVEL: As tolerated. DIET: Heart-healthy. CONDITION ON DISCHARGE: Stable. The patient should follow up with Dr. Wallis in the next 4 to 7 days. He already has an appointment scheduled with, he believes, Kala Reyes NP, for early May and he will keep this appointment. TIME SPENT: Thirty-five minutes was spent discharging this patient. [id number]/[facility] #: [id number] [facility]
== END 2019-04-24 13:26 | disposition home or self-care (01) ==
LOC: ED 19:24 → MEDTELE 04-24 01:34
PROVIDERS: ADMIT Internal Medicine; ATTEND Hospitalist
DX: R07.89 Other chest pain (principal); I25.10 Atherosclerotic heart disease of native coronary artery without angina pectoris; E78.5 Hyperlipidemia, unspecified; N40.0 Benign prostatic hyperplasia without lower urinary tract symptoms; R91.1 Solitary pulmonary nodule; I10 Essential (primary) hypertension; Z79.82 Long term (current) use of aspirin; Z95.5 Presence of coronary angioplasty implant and graft; Z79.899 Other long term (current) drug therapy; Z87.891 Personal history of nicotine dependence; Z86.19 Personal history of other infectious and parasitic diseases
CPT/HCPCS: 36415; 71045; 78452; 80053; 80061; 83605; 83735; 83880; 84484; 85025; 85610; 85730; 93005; 93017; 96372; 99283; A9270-GY; A9502; G0378; J0280; J1650; J2785

== ENCOUNTER 2020-01-23 20:17 | Emergency (ER) | payer MEDICARE ==
[2020-01-23 20:42] LABS: ABS Eosinophils 0.1 10^3/ul (0-0.6); ABS Lymphocytes 1.4 10^3/ul (1.0-4.8); ABS Monocytes 0.6 10^3/ul (0-0.8); Hematocrit 42 % (42-52); Hemoglobin 14.7 g/dL (14.0-18.0); Lymphocyte % 27.6 %; Mean Corpuscular HGB Conc 35 g/dL (31-36); Mean Corpuscular Hemoglobin 30 pg (27-31); Mean Corpuscular Volume 88 fL (80-94); Mean Platelet Volume 7.9 fL (7.4-10.4); Platelet Count 163 10^3/uL (150-450); Red Blood Count 4.82 10^6 /uL (4.18-5.48); Red Cell Distribution Width 13 % (10-15); White Blood Count 5.2 10^3/uL (3.5-10.8)
--- OUTSIDE RECORDS SUMMARY | 2020-01-23 20:47 | XMS REPORT | Continuity of Care Document ---
:1940 External Reference #:[id number] Author Name Kristopher Gaspar M.D. (transmitted by agent of provider Domenica Martin ) Address [address] [facility] [address] [place] [address] Care Team Providers Name Role Phone Dick Medrano MD - Rheumatology Care Team Information Highway Truck Driver Zackary Beth MD - Family Medicine Care Team Information Highway Truck Driver Problems Active Problems Provider Date Mixed hyperlipidemia Kristopher Gaspar M.D. Onset: 08/02/2013 Benign essential hypertension Kristopher Gaspar M.D. Onset: 01/26/2012 Pure hypercholesterolemia Kristopher Gaspar M.D. Onset: 01/26/2012 Coronary arteriosclerosis Kristopher Gaspar M.D. Onset: 01/26/2012 Social History Type Date Description Comments Sex Unknown ETOH Use Rarely consumes alcohol Tobacco Use Start: Unknown End: Patient is a former quit in 1979 Unknown smoker Recreational Drug Use Never Used Drugs Smoking Status Reviewed: 12/06/19 Patient is a former quit in 1979 smoker Exercise Type/Frequency Exercises regularly Allergies, Adverse Reactions, Alerts Active Allergies Reaction Severity Comments Date Zocor mylagias 12/19/2011 Inactive Allergies NKDA 03/20/2007 Medications Active Medications SIG Qnty Indications Ordering Provider Date Crestor 1 by mouth every 90tabs E78.00 Kala Reyes, 05/15/2019 5mg Tablets day N.P. Amlodipine Besylate 1 by mouth every 30tabs R07.9 Kala Reyes, 2018 day N.P. 2.5mg Tablets Zetia 1 by mouth every 90tabs Kala Reyes, 03/26/2019 10mg Tablets day N.P. Nitrostat one sl q5min up 25tabs I25.10 Kristopher AtiyaLenka 09/05/2018 0.4mg Tablets to 3 doses as Nasra Gaspar Sub needed Lisinopril 1 by mouth every 90tabs I10 Kristopher FLenka 04/28/2018 20mg Tablets day Nasra Gaspar Aspirin 1 po qd Kristopher AtiyaLenka 01/26/2012 81mg Chewtabs Nasra Gaspar Atenolol take 1/2 tablet 90tabs Kristopher AtiyaLenka 02/22/2007 25mg Tablets by mouth once Nasra Gaspar daily Eye-Vites 1 po qd Unknown Tablets Immunizations Description No Information Available Vital Signs Date Vital Result Comment 12/06/2019 2:37pm Height 75 inches 6'3" Weight 212.50 lb with boots Heart Rate 72 /min right radial regular BP Systolic Sitting 140 mmHg ule reg cuff BP Diastolic Sitting 80 mmHg ule reg cuff BP Systolic Standing 136 mmHg ule reg cuff BP Diastolic Standing 78 mmHg ule reg cuff BMI (Body Mass Index) 26.6 kg/m2 Ejection Fraction 60-65% 03/12/13 Echo 07/10/2019 10:13am Height 75 inches 6'3" Weight 212.00 lb Heart Rate 70 /min BP Systolic Sitting 132 mmHg Reg cuff Rue BP Diastolic Sitting 78 mmHg Reg cuff Rue BP Systolic Standing 132 mmHg reg cuff Rue BP Diastolic Standing 72 mmHg reg cuff Rue Respiratory Rate 12 /min BMI (Body Mass Index) 26.5 kg/m2 Ejection Fraction 60-65% Results Test Acquired Date Facility Test Result H/L Range Note Lipid Panel - 11/12/2019 [facility] Creatine 345 U/L High 10- [address] [address] [employer] [place], [place] [id number] [phone] Comp Metabolic 11/12/2019 [facility] Sodium 140 mmol/L Normal 135-[address] [place], [place] [id number] [phone] Potassium 4.5 mmol/L Normal 3.5-5.0 Chloride 106 mmol/L Normal 101-111 Co2 Carbon Dioxide 30 mmol/L Normal 22-32 Anion Gap 4 mmol/L Normal 2-11 Glucose 109 mg/dL High 70-100 Blood Urea Nitrogen 24 mg/dL Normal 6-24 Creatinine 1.14 mg/dL Normal 0.67-1.17 BUN/Creatinine Ratio 21.1 High 8-20 Calcium 9.4 mg/dL Normal 8.6-10.3 Total Protein 6.6 g/dL Normal 6.4-8.9 Albumin 4.3 g/dL Normal 3.2-5.2 Globulin 2.3 g/dL Normal 2-4 Albumin/Globulin Ratio 1.9 Normal 1-3 Total Bilirubin 1.20 mg/dL High 0.2-1.0 Alkaline Phosphatase 45 U/L Normal 34-104 Alt 26 U/L Normal 7-52 Ast 31 U/L Normal 13-39 Egfr Non- 61.8 >60 Egfr 74.8 >60 2 Lipid Profile 11/12/2019 [facility] Triglycerides 98 mg/dL 3 (Trig/Chol/HDL) [address] [place] [address] [phone] Cholesterol 137 mg/dL 4 HDL Cholesterol 39.2 mg/dL 5 LDL Cholesterol 78 mg/dL 6 Lipid Panel - 06/29/2019 [facility] Creatine 381 U/L High 10- 223 [address] [facility] [address] [employer] [place] [address] [phone] Comp Metabolic 06/29/2019 [facility] Sodium 140 Normal 135- [address] mmol/[place] [address] [phone] Potassium 4.6 mmol/L Normal 3.5-5.0 Chloride 105 mmol/L Normal 101-111 Co2 Carbon Dioxide 31 mmol/L Normal 22-32 Anion Gap 4 mmol/L Normal 2-11 Glucose 116 mg/dL High 70-100 Blood Urea Nitrogen 22 mg/dL Normal 6-24 Creatinine 1.05 mg/dL Normal 0.67-1.17 BUN/Creatinine Ratio 21.0 High 8-20 Calcium 9.3 mg/dL Normal 8.6-10.3 Total Protein 6.5 g/dL Normal 6.4-8.9 Albumin 4.3 g/dL Normal 3.2-5.2 Globulin 2.2 g/dL Normal 2-4 Albumin/Globulin Ratio 2.0 Normal 1-3 Total Bilirubin 1.10 mg/dL High 0.2-1.0 Alkaline Phosphatase 55 U/L Normal 34-104 Alt 29 U/L Normal 7-52 Ast 33 U/L Normal 13-39 Egfr Non- 68.1 >60 Egfr 82.4 >60 8 Lipid Profile 06/29/2019 [facility] Triglycerides 75 mg/dL 9 (Trig/Chol/HDL) [address] [place] [address] [phone] Cholesterol 137 mg/dL 10 HDL Cholesterol 45.8 mg/dL 11 LDL Cholesterol 76 mg/dL 12 1 FASTING in 3 m Copy Result to: ZACKARY BETH ([id number]) 2 Because ethnic data is not always readily [...] 15-29 5 Kidney failure <15 (or dialysis) 3 Desirable: <150 Borderline High: 150-199 High: 200-499 Very High: >500 4 Desirable: <200 Borderline High: 200-239 High: >239 5 Low: <40 Desirable: 40-60 High: >60 6 Desirable: <100 Near Optimal: 100-129 Borderline High: 130-159 High: 160-189 Very High: >189 7 FASTING in 3 weeks Copy Result to: ZACKARY BETH ([id number]) 8 Because ethnic data is not always readily [...] 15-29 5 Kidney failure <15 (or dialysis) 9 Desirable: <150 Borderline High: 150-199 High: 200-499 Very High: >500 10 Desirable: <200 Borderline High: 200-239 High: >239 11 Low: <40 Desirable: 40-60 High: >60 12 Desirable: <100 Near Optimal: 100-129 Borderline High: 130-159 High: 160-189 Very High: >189 Procedures Date Code Description Status 12/06/2019 67580 EKG Tracing & Interpretation Completed Medical Devices Description No Information Available Encounters Type Date Location Provider Dx Diagnosis Office Visit 07/10/2019 [facility] Kala Reyes, I25.10 Athscl heart 10: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 disease of [place] coronary artery w/o ang pctrs E78.00 Pure hypercholesterolemia, unspecified I10 Essential (primary) hypertension R07.9 Chest pain, unspecified Assessments Date Code Description Provider 12/06/2019 I25.10 Atherosclerotic heart disease of [place] Kristopher Gaspar M.D. coronary artery with 12/06/2019 E78.00 Pure hypercholesterolemia, unspecified Kristopher Gaspar M.D. 12/06/2019 I10 Benign essential hypertension Kristopher Gaspar M.D. 12/06/2019 I34.0 Nonrheumatic mitral (valve) insufficiency Kristopher Gaspar M.D. 07/10/2019 I25.10 Atherosclerotic heart disease of [place] Kala Reyes N.PLenka coronary artery with 07/10/2019 E78.00 Pure hypercholesterolemia, unspecified Kala Reyes, N.P. 07/10/2019 I10 Benign essential hypertension Kala Reyes, N.P. 07/10/2019 R07.9 Chest pain, unspecified Kala Reyes, N.P. Plan of Treatment 12/06/2019 - Kristopher Gaspar M.D.I25.10 Atherosclerotic heart disease of [place] coronary artery withFollow up:ov 9 mE78.00 Pure hypercholesterolemia, [id number] Benign essential gnatibblhornH76.0 Nonrheumatic mitral (valve) insufficiency Functional Status Description No Information Available Mental Status Description No Information Available Referrals Description No Information Available
--- OUTSIDE RECORDS SUMMARY | 2020-01-23 20:47 | XMS REPORT | Continuity of Care Document ---
:1940 External Reference #:[id number] Author Name Ellie Chavarria O.D. Address [address] [place] [address] Care Team Providers Name Role Phone Zackary Wallis M.D. - Family Medicine Care Team Information Mobile Marketing Manager [phone] Kristopher Gaspar MD - Cardiovascular Care Team Information Mobile Marketing Manager Disease Eugene Dominguez M.D. - Urology Care Team Information Mobile Marketing Manager [phone] Problems Active Problems Provider Date Essential hypertension Onset: Hypercholesterolemia Onset: Benign prostatic hypertrophy without Onset: outflow obstruction Epiretinal membrane Ellie Chavarria O.D. 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 Onset: 11/29/2016 Social History Type Date Description Comments Sex Unknown ETOH Use Rarely consumes alcohol Tobacco Use Start: Unknown Patient has never smoked Recreational Drug Use Denies Drug Use Smoking Status Reviewed: 01/04/20 Patient has never smoked Allergies, Adverse Reactions, Alerts Active Allergies Reaction Severity Comments Date Seasonal Moderate 01/04/2020 Medications Active Medications SIG Qnty Indications Ordering Provider Date Preservision Areds 2 1 cap by mouth Ellie Schaffer 11/26/2015 Areds twice a day Ryan Chavarria 2 Capsules Lisinopril Unknown 5mg Tablets Atenolol 1/2 a pill qd PO Unknown 25mg Tablets Aspirin Unknown 81mg Tablets Ezetimibe Take 1 Tablet By Unknown 10mg Tablets Mouth Once Daily Amlodipine Besylate Take 1 Tablet By Unknown 2.5mg Mouth Once Daily Tablets Rosuvastatin Calcium Take 1 Tablet By Unknown 5mg Mouth Once Daily Tablets NapJeremie WileyOLenka 500mg Tablets Immunizations Description No Information Available Vital Signs Description No Information Available Results Description No Information Available Procedures Description No Information Available Medical Devices Description No Information Available Encounters Description No Information Available Assessments Date Code Description Provider 01/04/2020 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 01/04/2020 H35.3131 Nonexudative age-related macular Ellie Chavarria O.D. degeneration, bilateral, ea 01/04/2020 Z96.1 Presence of intraocular lens Ellie Chavarria O.D. 01/04/2020 H43.813 Vitreous degeneration, bilateral Ellie Chavarria O.D. Plan of Treatment 01/04/2020 - Ellie Chavarria O.D.H35.373 Puckering of macula, bilateralComments:A Macular Pucker is a wrinkling of the retina tissue. It can cause distortion in your vision. Pleasecall the office if you notice a decrease or new distortion in your vision before then.Follow up:6 Month Follow Up OCT MAC You can expect to have your eyes dilated at your next visit. If Dr. Chavarria orders any additional testing, it may require extra time. We recommend that you bring sunglasses,as dilation drops often make you light sensitive until they wear off. We always recommend you bring someone to drive you home if you are uncomfortable driving with your eyes dilated. If you have any questions before your next visit, feel free to call our office at .H35.3131 Nonexudative age-related macular degeneration, bilateral, eaComments:Smoking can increase the risk of developing or worsening any eye related disease, as well as affect your overall health. If you are a smoker, we strongly recommend that you quit.If you are not a smoker, we strongly recommend that you do not start. CONTINUE TO USE AREDS 2 VITAMINSCONTINUE TO CHECK AMSLER GRID TWICE A WEEKZ96.1 Presence of intraocular lensComments:The artificial lens implants in both eyes appear to be stable at this time.H43.813 Vitreous degeneration, bilateralComments:You have a Posterior Vitreous Detachment. Please read the pamphlet that was given to you. If you have any changes in your floaters or flashing lights, please contact this office. Functional Status Description No Information Available Mental Status Description No Information Available Referrals Description No Information Available
[2020-01-23 20:59] LABS: Albumin 4.4 g/dL (3.2-5.2); Albumin/Globulin Ratio 1.6 (1-3); BUN/Creatinine Ratio 24.3 (8-20); EGFR African American 84.1 (>60); EGFR Non-African American 69.5 (>60); Globulin 2.8 g/dL (2-4); Potassium 3.8 mmol/L (3.5-5.0); Total Protein 7.2 g/dL (6.4-8.9)
[2020-01-23 21:00] LABS: Troponin I 0.01 ng/mL (<0.03)
[2020-01-23 21:02] LABS: INR 1.04 (0.82-1.09)
--- NOTE | 2020-01-23 21:12 | ED ---
Hypertension - HPI Summary HPI Summary: This pt is an 79 Y/O M presenting to [facility] with a CC of HTN that was elevated since 01/20/2020. He states that he also has midline chest discomfort that has been present since his HTN occurred. He states that his last BP read 151/96. He states that he has been lightheaded since the onset. He states that he has been anxious due to the increased COVID-19 cases in [place]. He denies any headaches, fevers, SOB, N/V, chills, diaphoresis, and myalgia. He has a PMHx of HTN, CAD, and states multiple stents placed throughout his chest. He has no known aggravating or alleviating factors. He states that he is currently taking HTN medications. - History of Current Complaint Chief Complaint: EDHypertension Stated Complaint: HIGH BLOOD PRESSURE PER PT Time Seen by Provider: 01/23/20 21:03 Hx Obtained From: Patient Onset/Duration: Started Days Ago - 3 Timing: Constant Reported Blood Pressure Prior To Arrival: 151/96 Aggravating Factor(s): Nothing Alleviating Factor(s): Nothing Associated Signs & Symptoms: Negative - headaches, fevers, SOB, N/V, chills, diaphoresis, and myalgia, Chest Pain - discomfort, Anxiety/Stress, Other: - lightheadedness - Allergies/Home Medications Allergies/Adverse Reactions: Allergies Allergy/AdvReac Type Severity Reaction Status Date / Time No Known Allergies Allergy Verified 04/24/19 00:04 Home Medications: Home Medications Aspirin 81 mg CHEW TAB* 81 mg PO QPM 04/09/13 [History Confirmed 01/23/20] Atenolol TAB* [Tenormin TAB* 25 MG] 12.5 mg PO DAILY 04/09/13 [History Confirmed 01/23/20] Rosuvastatin (NF) [Crestor (NF)] 10 mg PO QPM 12/27/17 [History Confirmed ] Lisinopril TAB* [Prinivil TAB 10 MG*] 20 mg PO DAILY 07/31/18 [History Confirmed 01/23/20] Vit C/E/Zn/Coppr/Lutein/Zeaxan [Preservision Areds 2 Softgel] 1 cap PO BID 07/31 [History Confirmed 01/23/20] Amlodipine 2.5 mg TAB (NF) 2.5 mg PO DAILY 01/23/20 [History Confirmed 01/23/20] Ezetimibe TAB* [Zetia TAB*] 10 mg PO DAILY 01/23/20 [History Confirmed 01/23/20] PMH/Surg Hx/FS Hx/Imm Hx Previously Healthy: Yes Endocrine/Hematology History: Denies: Hx Diabetes Cardiovascular History: Reports: Hx Angina, Hx Coronary Artery Disease, Hx Hypercholesterolemia, Hx Hypertension, Hx Myocardial Infarction, Other Cardiovascular Problems/Disorders - Stents placed 2006 and 2007 Denies: Hx Pacemaker/ICD Respiratory History: Reports: Other Respiratory Problems/Disorders - PNA ONE YR AGO Denies: Hx Asthma History: Denies: Hx Chronic Renal Failure, Hx Dialysis, Hx Renal Disease Sensory History: Reports: Hx Contacts or Glasses, Hx Hearing Aid Opthamlomology History: Reports: Hx Contacts or Glasses Psychiatric History: Denies: Hx Panic Disorder - Cancer History Cancer Type, Location and Year: "spot on my lungs" may 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 Hx Chemotherapy: No Hx Radiation Therapy: No - Surgical History Surgical History: Yes Surgery Procedure, Year, and Place: appendectomy, tonsilectomy, cardiac stents placed 2006 and 2007. 2-XIENCE V STENT SAFE TO 3T. 1-CORDIS CYPHER STENT SAFE TO 3T. STENT CARDS SCANNED INTO [facility] Hx Anesthesia Reactions: No - Immunization History Date of Tetanus Vaccine: unsure Date of Influenza Vaccine: 2012 Immunizations Up to Date: Yes Infectious Disease History: No Infectious Disease History: Reports: Hx Shingles Denies: History Other Infectious Disease, Traveled Outside the [place] in Last 30 Days - Family History Known Family History: Positive: None, Cardiac Disease - Father of heart attack Negative: Hypertension - Social History Occupation: Retired Lives: Alone Alcohol Use: Occasionally Alcohol Amount: a glass a wine or beer every now and then Hx Substance Use: No Substance Use Type: Reports: None Hx Tobacco Use: Yes Smoking Status (MU): Former Smoker Have You Smoked in the Last Year: No Review of Systems Negative: Fever, Chills Positive: Chest Pain - discomfort, Other - HTN Negative: Shortness Of Breath, Cough Negative: Vomiting, Nausea Negative: Myalgia Negative: Headache Positive: Anxious All Other Systems Reviewed And Are Negative: Yes Physical Exam - Summary Physical Exam Summary: Appearance: Well-appearing, Well-nourished, lying in bed comfortable Skin: Warm, dry, no obvious rash Eyes: sclera anicteric, no conjunctival pallor ENT: mucous membranes moist Neck: deferred Respiratory: No signs of respiratory distress Cardiovascular: Appears well perfused, pulses are nml Abdomen: deferred Musculoskeletal: Moving all 4 extremities without obvious discomfort Neurological: Awake and alert, mentation is normal, speech is fluent and appropriate Psychiatric: affect is normal, does not appear anxious or depressed Triage Information Reviewed: Yes Vital Signs On Initial Exam: Initial Vitals Temp Pulse Resp BP Pulse Ox 99.4 F 78 16 151/96 98 01/23/20 20:20 01/23/20 20:20 01/23/20 20:20 01/23/20 20:20 01/23/20 20:20 Vital Signs Reviewed: Yes Procedures - Sedation Patient Received Moderate/Deep Sedation with Procedure: No Diagnostics - Vital Signs Vital Signs Temp Pulse Resp BP Pulse Ox 01/23/20 20:20 99.4 F 78 16 151/96 98 - Laboratory Lab Results: Lab Results 01/23/20 01/23/20 01/23/20 Range/Units 20:35 20:35 20:35 WBC 5.2 (3.5-10.8) 10^3/uL RBC 4.82 (4.18-5.48) 10^6 /uL Hgb 14.7 (14.0-18.0) g/dL Hct 42 (42-52) % MCV 88 (80-94) fL MCH 30 (27-31) pg MCHC 35 (31-36) g/dL RDW 13 (10-15) % Plt Count 163 (150-450) 10^3/uL MPV 7.9 (7.4-10.4) fL Neut % (Auto) 58.3 % Lymph % (Auto) 27.6 % [place] % (Auto) 11.4 % Eos % (Auto) 2.0 % Baso % (Auto) 0.7 % Absolute Neuts (auto) 3.0 (1.5-7.7) 10^3/ul Absolute Lymphs (auto) 1.4 (1.0-4.8) 10^3/ul Absolute Monos (auto) 0.6 (0-0.8) 10^3/ul Absolute Eos (auto) 0.1 (0-0.6) 10^3/ul Absolute Basos (auto) 0.0 (0-0.2) 10^3/ul Absolute Nucleated RBC 0.0 10^3/ul Nucleated RBC % 0.0 INR (Anticoag Therapy) 1.04 (0.82-1.09) Sodium 139 (135-145) mmol/L Potassium 3.8 (3.5-5.0) mmol/L Chloride 103 (101-111) mmol/L Carbon Dioxide 30 (22-32) mmol/L Anion Gap 6 (2-11) mmol/L BUN 25 H (6-24) mg/dL Creatinine 1.03 (0.67-1.17) mg/dL Est GFR ( Amer) 84.1 (>60) Est GFR (Non-Af Amer) 69.5 (>60) BUN/Creatinine Ratio 24.3 H (8-20) Glucose 152 H (70-100) mg/dL Calcium 10.0 (8.6-10.3) mg/dL Total Bilirubin 1.00 (0.2-1.0) mg/dL AST 31 (13-39) U/L ALT 27 (7-52) U/L Alkaline Phosphatase 51 (34-104) U/L Troponin I 0.01 (<0.03) ng/mL Total Protein 7.2 (6.4-8.9) g/dL Albumin 4.4 (3.2-5.2) g/dL Globulin 2.8 (2-4) g/dL Albumin/Globulin Ratio 1.6 (1-3) Result Diagrams: 01/23/20 20:35 01/23/20 20:35 Lab Statement: Any lab studies that have been ordered have been reviewed, and results considered in the medical decision making process. - EKG 2028 Cardiac Rate: NL - 81 BPM EKG Rhythm: Sinus Rhythm ST Segment: Normal Ectopy: None Summary of EKG Findings: NSR at 81 BPM, P waves, QRS complex, and T waves are within normal limits, T waves and intervals are normal, no ischemic changes. This is a normal EKG. Interpreted by Dr. Azar at 203001/23/2020. Hypertension Course/Dx - Course Course Of Treatment: This pt is an 79 Y/O M presenting to [facility] with a CC of HTN that was elevated since 01/20/2020. He states that he also has midline chest discomfort that has been present since his HTN occurred. He states that his last BP read 151/96. He states that he has been lightheaded since the onset. He states that he has been anxious due to the increased COVID-19 cases in [place]. His PE found no acute abnormalities. He has no acute labratory findings. EKG taken at 2028 shows NSR at 81 BPM, P waves, QRS complex, and T waves are within normal limits, T waves and intervals are normal, no ischemic changes. This is a normal EKG. He will be discharged home with a Dx of HTN. - Diagnoses Provider Diagnoses: Hypertension Discharge ED - Sign-Out/Discharge Documenting (check all that apply): Patient Departure - discharge - Discharge Plan Condition: Good Disposition: HOME Patient Education Materials: Chronic Hypertension (ED) Referrals: Zackary Wallis MD [Primary Care Provider] - 1 Week - Attestation Statements Document Initiated by Scribe: Yes Documenting Scribe: Varinder Wheeler Provider For Whom Scribe is Documenting (Include Credential): Stevenson Azar MD Scribe Attestation: Varinder Weiner, scribed for Stevenson Azar MD on 01/23/20 at 2125. Status of Scribe Document: Ready
[2020-01-23 21:36] VITALS: BP 172/91
== END 2020-01-23 21:35 | disposition home or self-care (01) ==
LOC: ED 20:17
DX: I10 Essential (primary) hypertension (principal); R07.89 Other chest pain; F41.9 Anxiety disorder, unspecified; E78.00 Pure hypercholesterolemia, unspecified; Z79.82 Long term (current) use of aspirin; Z79.899 Other long term (current) drug therapy; Z95.5 Presence of coronary angioplasty implant and graft; Z87.891 Personal history of nicotine dependence
CPT/HCPCS: 36415; 80053; 84484; 85025; 85610; 93005; 99282

== ENCOUNTER 2021-04-23 21:13 | Observation (INO) ==
[2021-04-23 21:56] LABS: ABS Eosinophils 0.1 10^3/ul (0-0.6); ABS Lymphocytes 1.5 10^3/ul (1.0-4.8); ABS Monocytes 0.6 10^3/ul (0-0.8); ABS Neutrophils 3.7 10^3/ul (1.5-7.7); Eosinophil % 1.1 %; Hematocrit 43 % (42-52); Hemoglobin 14.5 g/dL (14.0-18.0); Lymphocyte % 25.1 %; Mean Corpuscular HGB Conc 34 g/dL (31-36); Mean Corpuscular Hemoglobin 29 pg (27-31); Mean Corpuscular Volume 86 fL (80-94); Mean Platelet Volume 7.9 fL (7.4-10.4); Nucleated Red Blood Cells % 0.1; Platelet Count 167 10^3/uL (150-450); Red Blood Count 4.93 10^6 /uL (4.18-5.48); Red Cell Distribution Width 14 % (10-15); White Blood Count 5.9 10^3/uL (3.5-10.8)
[2021-04-23 22:11] LABS: Albumin 4.2 g/dL (3.2-5.2); Albumin/Globulin Ratio 1.5 (1-3); Calcium 9.2 mg/dL (8.6-10.3); EGFR African American 83.9 (>60); EGFR Non-African American 69.3 (>60); Globulin 2.8 g/dL (2-4); Potassium 4.2 mmol/L (3.5-5.0); Total Bilirubin 1.3 mg/dL (0.2-1.0)
[2021-04-23 22:12] LABS: Troponin I 0.01 ng/mL (<0.03)
[2021-04-24 01:03] LABS: Troponin I 0.01 ng/mL (<0.03)
[2021-04-24 03:53] LABS: HDL Cholesterol 38.1 mg/dL
[2021-04-24] MEDS ORDERED: Aminophylline 25 MG/ML VIAL ONE (08:09)
[2021-04-24] MEDS ORDERED: Regadenoson 0.4 MG/5 ML SYRINGE ONE (08:09)
[2021-04-24] MEDS: Enoxaparin 40 MG/0.4 ML SYR SUBCUT SCH (12:01)
[2021-04-24] MEDS: Multivitamins/Mins AREDS2 (NF) CAP PO SCH ×2 (12:30→21:03)
[2021-04-24] MEDS ORDERED: Iohexol 350 (CONTRAST) 500 ML MDV IV ONE (13:28)
[2021-04-25] MEDS: Multivitamins/Mins AREDS2 (NF) CAP PO SCH (09:00)
[2021-04-25] MEDS: Enoxaparin 40 MG/0.4 ML SYR SUBCUT SCH (09:00)
[2021-04-25 12:40] VITALS: BP 115/64
== END 2021-04-25 14:00 | disposition home or self-care (01) ==
LOC: ED 21:13 → EDHOLD 04-24 01:02 → INTOOBSV 04-24 01:02 → MEDTELE 04-24 05:15
PROVIDERS: ADMIT Hospitalist; ATTEND Internal Medicine

== ENCOUNTER 2023-05-16 18:43 | Observation (INO) ==
[2023-05-16 19:19] LABS: ABS Eosinophils 0.1 10^3/uL (0.0-0.5); ABS Lymphocytes 1.5 10^3/uL (1.0-4.8); ABS Monocytes 0.7 10^3/uL (0.0-1.1); ABS Neutrophils 4.5 10^3/uL (1.5-7.6); ABS Nucleated RBC 0.01 10^3/ul; Eosinophil % 1.2 %; Hematocrit 42.7 % (38-53); Hemoglobin 14.5 g/dL (13.2-16.3); Lymphocyte % 22.1 %; Mean Corpuscular Hemoglobin 29.2 pg (27-33); Mean Corpuscular Volume 85.9 fL (80-97); Mean Platelet Volume 7.6 fL (7.5-11.2); Nucleated Red Blood Cells % 0.1 /100 WBC (0.0-0.4); Platelet Count 175 10^3/uL (150-450); Red Blood Count 4.97 10^6/uL (4.06-5.63); Red Cell Distribution Width 13.3 % (12-17); White Blood Count 6.9 10^3/uL (3.6-10.2)
[2023-05-16 19:24] LABS: INR 1.13 (0.88-1.18)
[2023-05-16 19:37] LABS: Albumin 4.2 g/dL (3.2-5.2); Albumin/Globulin Ratio 1.6 (1-3); Calcium 9.3 mg/dL (8.6-10.3); Creatinine, Serum 1.22 mg/dL (0.67-1.17); Globulin 2.7 g/dL (2-4); Potassium 4.4 mmol/L (3.5-5.0); Total Bilirubin 1.3 mg/dL (0.2-1.0); Total Protein 6.9 g/dL (6.4-8.9); eGFR CKD-EPI 58.8 (>60)
[2023-05-16] MEDS ORDERED: Iodixanol (CONTRAST) 320 MG/ML 100 ML SDV IV ONE (20:31)
[2023-05-16 20:51] LABS: High Sensitivity Troponin 1 Hr 7 pg/mL (<20)
[2023-05-16] MEDS ORDERED: Enoxaparin 40 MG/0.4 ML SYR SUBCUT SCH (23:45)
[2023-05-17] MEDS ORDERED: NS 0.9% 1000 ml BAG 1,000 ML IV SCH (01:30)
[2023-05-17] MEDS ORDERED: Heparin 5000 UNITS/ML 1 mL VIAL SUBCUT ONE (01:37)
[2023-05-17 04:28] LABS: INR 1.18 (0.88-1.18)
[2023-05-17 06:48] LABS: Creatinine, Serum 1.01 mg/dL (0.67-1.17); HDL Cholesterol 37.3 mg/dL; Magnesium 1.9 mg/dL (1.9-2.7); Potassium 4.5 mmol/L (3.5-5.0); eGFR CKD-EPI 73.8 (>60)
[2023-05-17] MEDS ORDERED: Magnesium Sulfate IV 1GM/100ML 1 GM/100 ML BAG IV ONE (07:44)
[2023-05-17] MEDS ORDERED: Regadenoson 0.4 MG/5 ML SYRINGE ONE ×2 (10:22→14:31)
[2023-05-17 14:06] VITALS: BP 131/77
== END 2023-05-17 14:06 | disposition home or self-care (01) ==
LOC: ED 18:43 → INTOOBSV 23:35 → EDHOLD 23:35 → SUATTDRO 23:35 → EDHOLD 05-17 08:10
PROVIDERS: ADMIT Internal Medicine; ATTEND Hospitalist